=== PATIENT | female | born 1955 | race Caucasian/White ===

== ENCOUNTER 2020-05-10 05:57 | Inpatient (IN) | payer MEDICARE, SELFPAY ==
[2020-05-10] VITALS (19 sets, daily range): BP systolic 153–257; BP diastolic 70–109; PULSE 90–108; RESP 16–28; TEMP 35.5–36.8; O2SAT 94–97; BMI 38.6
--- NOTE | 2020-05-10 06:17 | ECG_ITS ---
Test Reason : CHEST PAIN Blood Pressure : / mmHG Vent. Rate : 100 BPM Atrial Rate : 100 BPM P-R Int : 192 ms QRS Dur : 082 ms QT Int : 358 ms P-R-T Axes : 044 -23 040 degrees QTc Int : 461 ms Sinus tachycardia Otherwise normal ECG When compared with ECG of 12-APR-2018 04:21, Heart rate has increased Referred By: Danisha Mathew Electronically Signed By:DEEP VÁZQUEZ MD
--- NOTE | 2020-05-10 06:18 | ED_ITS ---
HPI - Chest Pain General Chief Complaint: Chest Pain Stated Complaint: Chest pain Time Seen by Provider: 05/10/20 06:17 Source: patient Mode of arrival: EMS Limitations: no limitations History of Present Illness HPI narrative: This is a 64-year-old female who is brought in by EMS for acute onset of substernal sharp constant chest pain that patient states awoke her from sleep at approximately 4:30 a.m. today. She states it is non radiating and does increase with deep inspiration as well as some movement and it is described as 10/10. Patient does states that she suffers from GERD but says that this is completely different and denies any preceding trauma, fevers, chills, shortness of breath and states that she does have some associated dizziness. Related Data Allergies Allergy/AdvReac Type Severity Reaction Status Date / Time demerol Allergy Unknown Unknown Uncoded 05/10/20 06:10 lisinopril Allergy Unknown Unknown Uncoded 05/10/20 06:10 Review of Systems Review of Systems: Pertinent positives and negatives as stated in HPI and 10 point review of systems is otherwise negative. [facility] Past Medical History Source: nursing notes reviewed Medical History Asthma Diabetes Dizziness GERD (gastroesophageal reflux disease) High cholesterol HTN (hypertension) Social History Social History Smoking Status: Current every day smoker Use of substances other than those prescribed or required for medical reasons: No Advance Directives: No Advance Directives Information Provided: No Physical Exam Vital Signs: Vital Signs: Last Vital Signs Temp 95.9 F L 05/10/20 06:05 Pulse 98 05/10/20 09:15 Resp 28 H 05/10/20 08:43 BP 155/70 H 05/10/20 09:15 Pulse Ox 95 05/10/20 08:20 Body Mass Index 38.6 VITAL SIGNS: Reviewed. GENERAL: Morbidly obese, Well developed, well nourished, severe distress. HEAD: Normocephalic/atraumatic, EYES: PERRLA, EOMI intact without pain, no nystagmus/pallor/icterus noted EARS: Ext canals without abnormality, TMs non-bulging and non-erythematous NOSE: Nares patent bilateral OROPHARYNX: no oral lesions noted, posterior pharynx clear and non-erythematous without noted tonsillar enlargement/erythema/exudates NECK: Supple, no adenopathy LUNGS: Normal breath sounds. No adventitious sounds or accessory muscle use. SpO2<95> CARDIOVASCULAR: Regular rate and rhythm without noted murmurs, no JVD or lower extremity edema. ABDOMEN: Soft, non-tender, non-distended with bowel sounds. No rigidity. No guarding. No palpable masses or hernias noted MUSCULOSKELETAL: No tenderness, deformities, or effusions noted on gross inspection. EXTREMITIES: No cyanosis, clubbing or edema. SKIN: Inspection of the skin reveals no rashes, ulcerations, jaundice, pallor, or petechiae. NEUROLOGIC: Alert and oriented x 4. Strength and sensation to light touch were grossly intact x 4. Course Course Course Narrative: This is a 64-year-old female with history and clinical presentation most concerning for ACS although on review of EKG and vital signs this appears to be less likely as there is no evidence for acute ischemia, esophageal reflux although history provided by the patient this appears to be less likely and there is limited evidence to support diagnoses pneumonia or a pneumothorax. Given patient's medical history and body habitus there is some concern for possible PE, however with the degree of hypertension that is observed there is also concern for possible dissection. Due to concerns for possible dissection and given that patient's blood pressure was significantly elevated labetalol, IVP, was provided with good response in blood pressure however no appreciable improvement in patient's symptomatology. Subsequently the D-dimer was returned and found to be less than 200 making a diagnosis of PE doubtful and high sensitivity troponin was noted to be less than 3.5. However the troponin will need to be repeated as patient's pain falls within the 6 hour window. Although there is a noted leukocytosis on review of patient's prior lab work this appears to wax and wane and is unlikely to be indicative of an underlying infection. Urinalysis is negative for any evidence of acute infection or indirect suggestion of renal colic. CTA of the chest was negative for PE, dissection and indirectly pneumonia/pneumothorax / pneumomediastinum have been excluded. Patient's pain has begun to improve after 2 sublingual nitro , 40 mg of Protonix, and blood pressure is gradually improved. Currently, thoughts are that this may be esophageal spasm versus a pericarditis. Will administer 15 mg of Toradol and reassess for improvement of symptoms. Reevaluation(s) Reevaluation #1: I briefly asked GI for recommendations to treat possible esophageal spasm and the recommendations for sublingual nitro as long as patient's blood pressure was intact and the longer-term trial of PPIs. Time: 07:59 Reevaluation #2: Patient signed out to Dr. Segal. Plan: f/u 2nd Trop, admit with GI/cardio consults to rule out pericarditis/esophageal spasm. Time: 09:17 MDM - Chest Pain Lab Data Result diagrams: 05/10/20 06:36 05/10/20 06:36 Labs: Lab Results 05/10/20 05/10/20 05/10/20 Range/Units 06:36 06:36 06:36 WBC 17.7 H (4.8-10.8) X10*3/uL RBC 5.00 (4.20-5.50) X10*6/uL Hgb 14.5 (12.0-16.0) g/dl Hct 44.1 (37-47) % MCV 88.2 (80-98) fL MCH 29.0 (27.0-33.0) pg MCHC 32.9 (31.0-35.0) g/dl RDW 12.7 (11.0-16.0) % Plt Count 250 (160-400) X10*3/uL MPV 10.4 (9.4-12.3) fL Immature Gran % (Auto) 0.6 H (0.0-0.4) % Neut % (Auto) 73.2 H (45-73) % Lymph % (Auto) 17.0 L (20-40) % [place] % (Auto) 6.7 (2-11) % Eos % (Auto) 1.9 (0-4) % Baso % (Auto) 0.6 (0-2) % Lymph # (Auto) 3.0 (1.2-4.9) X10*3/uL [place] # (Auto) 1.2 (0.1-1.2) X10*3/uL Eos # (Auto) 0.3 (0.0-0.4) X10*3/uL Baso # (Auto) 0.1 (0.0-0.2) X10*3/uL Abs Immat Gran (auto) 0.11 H (0.00-0.03) X10*3/uL Absolute Neuts (auto) 12.9 H (2.0-8.3) X10*3/uL Absolute Nucleated RBC 0.000 (0.0-0.012) X10*3/uL Nucleated RBC % (auto) 0.0 (0.0-0.2) /100WBC PT 12.0 (10.8-13.0) SEC INR 1.0 (0.9-1.1) D-Dimer < 200 NG/ML Sodium 137 (135-145) mmol/L Potassium 4.5 (3.3-5.1) mmol/l Chloride 99 (96-108) mmol/L Carbon Dioxide 27 (22-29) mmol/L Anion Gap 16 (12-20) BUN 13 (9-16) mg/dL Creatinine 0.74 (0.5-1.4) mg/dL Estim Creat Clear Calc 86.9 Estimated GFR > 60 Random Glucose 257 H (60-115) mg/dL Calcium 9.4 (8.4-10.2) mg/dL Total Bilirubin 0.5 (0.0-1.0) mg/dL AST 22 (5-31) U/L ALT 38 H (0-31) U/L Alkaline Phosphatase 97 (39-117) U/L Troponin I High Sens (<3.5-17.0) ng/L Total Protein 7.1 (6.5-8.0) g/dL Albumin 4.1 (3.5-5.0) g/dL Lipase 14 (8-78) U/L Urine Color Urine Appearance Urine pH (5.0-8.0) Ur Specific [place] (1.005-1.025) Urine Protein (NEG-TRACE) MG/DL Urine Glucose (UA) (NEG) MG/DL Urine Ketones (NEG) MG/DL Urine Blood (NEG) Urine Nitrite (NEG) Ur Leukocyte Esterase (NEG) 05/10/20 05/10/20 Range/Units 06:36 07:42 WBC (4.8-10.8) X10*3/uL RBC (4.20-5.50) X10*6/uL Hgb (12.0-16.0) g/dl Hct (37-47) % MCV (80-98) fL MCH (27.0-33.0) pg MCHC (31.0-35.0) g/dl RDW (11.0-16.0) % Plt Count (160-400) X10*3/uL MPV (9.4-12.3) fL Immature Gran % (Auto) (0.0-0.4) % Neut % (Auto) (45-73) % Lymph % (Auto) (20-40) % [place] % (Auto) (2-11) % Eos % (Auto) (0-4) % Baso % (Auto) (0-2) % Lymph # (Auto) (1.2-4.9) X10*3/uL [place] # (Auto) (0.1-1.2) X10*3/uL Eos # (Auto) (0.0-0.4) X10*3/uL Baso # (Auto) (0.0-0.2) X10*3/uL Abs Immat Gran (auto) (0.00-0.03) X10*3/uL Absolute Neuts (auto) (2.0-8.3) X10*3/uL Absolute Nucleated RBC (0.0-0.012) X10*3/uL Nucleated RBC % (auto) (0.0-0.2) /100WBC PT (10.8-13.0) SEC INR (0.9-1.1) D-Dimer NG/ML Sodium (135-145) mmol/L Potassium (3.3-5.1) mmol/l Chloride (96-108) mmol/L Carbon Dioxide (22-29) mmol/L Anion Gap (12-20) BUN (9-16) mg/dL Creatinine (0.5-1.4) mg/dL Estim Creat Clear Calc Estimated GFR Random Glucose (60-115) mg/dL Calcium (8.4-10.2) mg/dL Total Bilirubin (0.0-1.0) mg/dL AST (5-31) U/L ALT (0-31) U/L Alkaline Phosphatase (39-117) U/L Troponin I High Sens < 3.5 (<3.5-17.0) ng/L Total Protein (6.5-8.0) g/dL Albumin (3.5-5.0) g/dL Lipase (8-78) U/L Urine Color YELLOW Urine Appearance CLEAR Urine pH 6.5 (5.0-8.0) Ur Specific [place] 1.015 (1.005-1.025) Urine Protein NEG (NEG-TRACE) MG/DL Urine Glucose (UA) 250 H (NEG) MG/DL Urine Ketones NEG (NEG) MG/DL Urine Blood NEG (NEG) Urine Nitrite NEG (NEG) Ur Leukocyte Esterase NEG (NEG) ECG Data ECG #1: Attestation: I personally reviewed and interpreted this ECG as follows: Prior ECG tracings: available for review (04/12/2018 and no acute changes on comparison with today) Interpretation: Normal sinus rhythm, HR-100, no evidence of acute ischemia, p.r./QRS/QTC are within normal limits
--- NOTE | 2020-05-10 06:18 | ECG_ITS ---
Test Reason : chest pain Blood Pressure : / mmHG Vent. Rate : 101 BPM Atrial Rate : 101 BPM P-R Int : 156 ms QRS Dur : 080 ms QT Int : 348 ms P-R-T Axes : 032 -14 043 degrees QTc Int : 451 ms Sinus tachycardia Possible Left atrial enlargement ST elevation consider inferior injury or acute infarct ACUTE DE / STEMI Abnormal ECG ST more elevated in Inferior leads Referred By: Alexander Rojas Electronically Signed By:DEEP VÁZQUEZ MD
[2020-05-10 06:45] LABS: MANUAL DIFF FLAG NO
[2020-05-10] MEDS: Labetalol HCL 100 MG/20 ML VIAL 10 MG IVPUSH (06:45)
--- NOTE | 2020-05-10 06:48 | CT_ITS ---
EXAMINATION: CT ANGIOGRAM CHEST CLINICAL INFORMATION: Substernal pain, shortness of breath, dizziness, hypertensive COMPARISON: CT chest with IV contrast 11/11/2016 TECHNIQUE: Multiple axial images were obtained through the chest after the administration of 71 mL of Omnipaque 350 intravenous contrast. Extensive vascular post-processing including two-dimensional and three-dimensional reformatted images were created and reviewed on an independent workstation. This CT examination was performed using dose optimization techniques as appropriate, variously including the following: *Automated exposure control *Adjustment of mA and/or kV according to patient size (this includes techniques or standardized protocols for targeted exams where dose is matched to indication/reason for exam; i.e. extremities or head) *Use of iterative reconstruction technique DLP: 566 mGy-cm FINDINGS: QUALITY OF STUDY/CONTRAST BOLUS: Limitation due to moderate motion artifact. Satisfactory contrast bolus timing. PULMONARY ARTERIES: There is motion artifact resulting in heterogeneous attenuation of the subsegmental pulmonary arterial branches. There is no definite central or segmental pulmonary emboli. THORACIC AORTA: No aneurysm or dissection. Motion artifact at the aortic root. Scattered aortic atherosclerosis. LUNG: No airspace consolidation. No suspicious mass is seen. Possible tiny calcified granuloma in the left upper lobe apical segment. Otherwise limited assessment for nodules due to motion artifact. PLEURA: No pleural effusion or pneumothorax. MEDIASTINUM: Normal heart size. No pericardial effusion. No bulky hilar or mediastinal lymphadenopathy. No evidence of septal bowing or right heart strain. CHEST WALL/AXILLA: No axillary or internal mammary lymphadenopathy. Radiodensity in the right breast possibly representing biopsy marker. OSSEOUS STRUCTURES: No acute or suspicious osseous abnormality. Multilevel degenerative changes of the thoracic spine. UPPER ABDOMEN: Subcentimeter low-density lesion in the upper pole of the left kidney is too small to characterize, most likely representing a cyst. This appears similar in size compared to 11/11/2016. No reflux of contrast into the hepatic veins to suggest elevated right heart pressures. ADDITIONAL FINDINGS: Redemonstration of peripherally calcified nodule in the right thyroid lobe measuring approximately 2.3 cm in maximum dimension. Size is unchanged compared to study from 11/11/2016. CT/CT angio chest IMPRESSION: There are limitations due to motion artifact. No evidence of central or segmental pulmonary emboli. No focal airspace disease or other acute intrathoracic pathology. Calcified thyroid nodule as above, up to 2.3 cm in maximum dimension, which could be better assessed with thyroid ultrasound as clinically indicated. VTE: negative
[2020-05-10 06:51] LABS: Basophils Absolute Auto 0.1 X10*3/uL (0.0-0.2); Basophils Percent Auto 0.6 % (0-2); Eosinophils Absolute Auto 0.3 X10*3/uL (0.0-0.4); Eosinophils Percent Auto 1.9 % (0-4); Hematocrit 44.1 % (37-47); Hemoglobin 14.5 g/dl (12.0-16.0); Imm Gran Abs Auto 0.11 X10*3/uL (0.00-0.03); Imm Gran Pct Auto 0.6 % (0.0-0.4); Mean Corpuscular HGB Conc 32.9 g/dl (31.0-35.0); Mean Corpuscular Volume 88.2 fL (80-98); Mean Platelet Volume 10.4 fL (9.4-12.3); Monocytes Absolute Auto 1.2 X10*3/uL (0.1-1.2); Monocytes Percent Auto 6.7 % (2-11); Neutrophils Absolute Auto 12.9 X10*3/uL (2.0-8.3); Neutrophils Percent Auto 73.2 % (45-73); Platelet Count 250 X10*3/uL (160-400); Red Cell Distribution Width 12.7 % (11.0-16.0); White Blood Count 17.7 X10*3/uL (4.8-10.8)
[2020-05-10] MEDS: Magnesium Hydrox/Alum Hydrox 30 ML ORAL.SUSP PO (06:51)
[2020-05-10] MEDS: Lidocaine HCl Viscous 2 % 15 ML SOLUTION 10 ML MUCOUS MEM (06:51)
[2020-05-10 07:03] LABS: D Dimer < 200 NG/ML
[2020-05-10 07:10] LABS: Alanine Aminotransferase 38 U/L (0-31); Albumin Level 4.1 g/dL (3.5-5.0); Alkaline Phosphatase 97 U/L (39-117); Anion Gap 16 (12-20); Aspartate Amino Transferase 22 U/L (5-31); Bilirubin Total 0.5 mg/dL (0.0-1.0); Blood Urea Nitrogen 13 mg/dL (9-16); Calcium 9.4 mg/dL (8.4-10.2); Carbon Dioxide 27 mmol/L (22-29); Chloride 99 mmol/L (96-108); Creatinine Clr Calc Pharmacy 86.9; Estimated Glomerular Filt Rate > 60; Glucose Random 257 mg/dL (60-115); Lipase 14 U/L (8-78); Potassium 4.5 mmol/l (3.3-5.1); Sodium 137 mmol/L (135-145); Total Protein 7.1 g/dL (6.5-8.0)
[2020-05-10 07:13] LABS: Troponin-I High Sensitivity < 3.5 ng/L (<3.5-17.0)
[2020-05-10] MEDS: HYDROmorphone HCl 0.5 MG/0.5 ML SYRINGE IVPUSH ×5 (07:25→22:16)
[2020-05-10] MEDS: iohexoL 350 MG/ML 100 ML INFUS..BTL IV (07:40)
[2020-05-10 07:49] LABS: Glucose Urine UA 250 MG/DL (NEG); Leukocyte Esterase Urine NEG (NEG); Nitrite Urine NEG (NEG); PH 6.5 (5.0-8.0); Specific Gravity - Urine 1.015 (1.005-1.025); Urine Blood NEG (NEG); Urine Ketones NEG (NEG); Urine Protein NEG (NEG-TRACE)
[2020-05-10 08:00] LABS: Appearance Urine CLEAR; Color Urine YELLOW
[2020-05-10] MEDS: Morphine Sulfate 2 MG/ML CARTRIDGE 1 MG IVPUSH (08:02)
[2020-05-10] MEDS: Nitroglycerin 0.4 MG TAB.SUBL SUBLINGUAL ×2 (08:18→08:44)
[2020-05-10] MEDS: Pantoprazole Sodium 40 MG/10 ML VIAL IVPUSH (08:43)
[2020-05-10] MEDS: Ketorolac Tromethamine 15 MG/ML VIAL IVPUSH (09:07)
--- NOTE | 2020-05-10 09:53 | ED_ITS ---
HPI - Chest Pain General Chief Complaint: Chest Pain Stated Complaint: Chest pain Time Seen by Provider: 05/10/20 06:17 Source: patient Mode of arrival: EMS Limitations: no limitations Related Data Home Medications Medication Instructions Recorded Confirmed clotrimazole 1 % topical cream 1 applic TOPICAL BID 05/10/20 05/22/20 insulin glargine 100 unit/mL (3 32 unit SUBCUT BID 05/10/20 05/22/20 mL) subcutaneous pen (Basaglar KwikPen U-100 Insulin) irbesartan 300 mg tablet 1 tab PO DAILY 05/10/20 05/22/20 metformin 1,000 mg tablet 2 tab PO QAM 05/10/20 05/22/20 omeprazole 20 mg capsule,delayed 1 cap PO BID 05/10/20 05/22/20 release dulaglutide 0.75 mg/0.5 mL 0.75 mg SUBCUT QWEEK 05/22/20 05/22/20 subcutaneous pen injector (Trulicity) Previous Rx's Medication Instructions Recorded amlodipine 10 mg tablet 10 mg PO DAILY #30 tab 05/12/20 atorvastatin 40 mg tablet (Lipitor) 40 mg PO BEDTIME #30 tab 05/12/20 oxycodone 5 mg tablet 5 mg PO Q6H PRN #14 tab 05/12/20 polyethylene glycol 3350 17 gram 17 g PO DAILY #14 ea 05/12/20 oral powder packet (Miralax) Allergies Allergy/AdvReac Type Severity Reaction Status Date / Time demerol Allergy Unknown Unknown Uncoded 05/10/20 06:10 lisinopril Allergy Unknown Unknown Uncoded 05/10/20 06:10 [facility] Past Medical History Medical History Asthma Diabetes Diverticulitis Dizziness GERD (gastroesophageal reflux disease) High cholesterol HTN (hypertension) Small bowel obstruction Surgical History H/O exploratory laparotomy History of bilateral knee replacement History of partial colectomy Status post total abdominal hysterectomy Family History Family History Sister Diabetes ESRD (end stage renal disease) on dialysis Father CAD (coronary artery disease) Social History Social History (Updated 05/22/20 @ 11:37 by MARY Mckinney) Alcohol intake: never Cigarettes Per Day: 0 service: No Current occupational status: retired Physical Exam Vital Signs: Vital Signs: Last Vital Signs Temp 97 F 05/13/20 07:09 Pulse 86 05/13/20 11:04 Resp 20 05/13/20 11:04 BP 130/58 L 05/13/20 11:04 Pulse Ox 95 05/13/20 11:04 Body Mass Index 38.6 MDM - Chest Pain Lab Data Result diagrams: 05/12/20 10:00 05/12/20 10:00 Labs: Lab Results 05/10/20 05/10/20 05/10/20 Range/Units 06:36 06:36 06:36 WBC 17.7 H (4.8-10.8) X10*3/uL RBC 5.00 (4.20-5.50) X10*6/uL Hgb 14.5 (12.0-16.0) g/dl Hct 44.1 (37-47) % MCV 88.2 (80-98) fL MCH 29.0 (27.0-33.0) pg MCHC 32.9 (31.0-35.0) g/dl RDW 12.7 (11.0-16.0) % Plt Count 250 (160-400) X10*3/uL MPV 10.4 (9.4-12.3) fL Immature Gran % (Auto) 0.6 H (0.0-0.4) % Neut % (Auto) 73.2 H (45-73) % Lymph % (Auto) 17.0 L (20-40) % [place] % (Auto) 6.7 (2-11) % Eos % (Auto) 1.9 (0-4) % Baso % (Auto) 0.6 (0-2) % Lymph # (Auto) 3.0 (1.2-4.9) X10*3/uL [place] # (Auto) 1.2 (0.1-1.2) X10*3/uL Eos # (Auto) 0.3 (0.0-0.4) X10*3/uL Baso # (Auto) 0.1 (0.0-0.2) X10*3/uL Abs Immat Gran (auto) 0.11 H (0.00-0.03) X10*3/uL Absolute Neuts (auto) 12.9 H (2.0-8.3) X10*3/uL Absolute Nucleated RBC 0.000 (0.0-0.012) X10*3/uL Nucleated RBC % (auto) 0.0 (0.0-0.2) /100WBC PT 12.0 (10.8-13.0) SEC INR 1.0 (0.9-1.1) D-Dimer < 200 NG/ML Sodium 137 (135-145) mmol/L Potassium 4.5 (3.3-5.1) mmol/l Chloride 99 (96-108) mmol/L Carbon Dioxide 27 (22-29) mmol/L Anion Gap 16 (12-20) BUN 13 (9-16) mg/dL Creatinine 0.74 (0.5-1.4) mg/dL Estim Creat Clear Calc 86.9 Estimated GFR > 60 Random Glucose 257 H (60-115) mg/dL Calcium 9.4 (8.4-10.2) mg/dL Total Bilirubin 0.5 (0.0-1.0) mg/dL AST 22 (5-31) U/L ALT 38 H (0-31) U/L Alkaline Phosphatase 97 (39-117) U/L Troponin I High Sens (<3.5-17.0) ng/L B-Natriuretic Peptide (<100) pg/mL Total Protein 7.1 (6.5-8.0) g/dL Albumin 4.1 (3.5-5.0) g/dL Lipase 14 (8-78) U/L Procalcitonin ng/mL Urine Color Urine Appearance Urine pH (5.0-8.0) Ur Specific [place] (1.005-1.025) Urine Protein (NEG-TRACE) MG/DL Urine Glucose (UA) (NEG) MG/DL Urine Ketones (NEG) MG/DL Urine Blood (NEG) Urine Nitrite (NEG) Ur Leukocyte Esterase (NEG) COVID-19 ([facility]) (Negative) COVID-19 Clin Com 05/10/20 05/10/20 05/10/20 Range/Units 06:36 06:36 07:42 WBC (4.8-10.8) X10*3/uL RBC (4.20-5.50) X10*6/uL Hgb (12.0-16.0) g/dl Hct (37-47) % MCV (80-98) fL MCH (27.0-33.0) pg MCHC (31.0-35.0) g/dl RDW (11.0-16.0) % Plt Count (160-400) X10*3/uL MPV (9.4-12.3) fL Immature Gran % (Auto) (0.0-0.4) % Neut % (Auto) (45-73) % Lymph % (Auto) (20-40) % [place] % (Auto) (2-11) % Eos % (Auto) (0-4) % Baso % (Auto) (0-2) % Lymph # (Auto) (1.2-4.9) X10*3/uL [place] # (Auto) (0.1-1.2) X10*3/uL Eos # (Auto) (0.0-0.4) X10*3/uL Baso # (Auto) (0.0-0.2) X10*3/uL Abs Immat Gran (auto) (0.00-0.03) X10*3/uL Absolute Neuts (auto) (2.0-8.3) X10*3/uL Absolute Nucleated RBC (0.0-0.012) X10*3/uL Nucleated RBC % (auto) (0.0-0.2) /100WBC PT (10.8-13.0) SEC INR (0.9-1.1) D-Dimer NG/ML Sodium (135-145) mmol/L Potassium (3.3-5.1) mmol/l Chloride (96-108) mmol/L Carbon Dioxide (22-29) mmol/L Anion Gap (12-20) BUN (9-16) mg/dL Creatinine (0.5-1.4) mg/dL Estim Creat Clear Calc Estimated GFR Random Glucose (60-115) mg/dL Calcium (8.4-10.2) mg/dL Total Bilirubin (0.0-1.0) mg/dL AST (5-31) U/L ALT (0-31) U/L Alkaline Phosphatase (39-117) U/L Troponin I High Sens < 3.5 (<3.5-17.0) ng/L B-Natriuretic Peptide (<100) pg/mL Total Protein (6.5-8.0) g/dL Albumin (3.5-5.0) g/dL Lipase (8-78) U/L Procalcitonin 0.04 ng/mL Urine Color YELLOW Urine Appearance CLEAR Urine pH 6.5 (5.0-8.0) Ur Specific [place] 1.015 (1.005-1.025) Urine Protein NEG (NEG-TRACE) MG/DL Urine Glucose (UA) 250 H (NEG) MG/DL Urine Ketones NEG (NEG) MG/DL Urine Blood NEG (NEG) Urine Nitrite NEG (NEG) Ur Leukocyte Esterase NEG (NEG) COVID-19 ([facility]) (Negative) COVID-19 Clin Com 05/10/20 05/10/20 Range/Units 09:47 09:47 WBC (4.8-10.8) X10*3/uL RBC (4.20-5.50) X10*6/uL Hgb (12.0-16.0) g/dl Hct (37-47) % MCV (80-98) fL MCH (27.0-33.0) pg MCHC (31.0-35.0) g/dl RDW (11.0-16.0) % Plt Count (160-400) X10*3/uL MPV (9.4-12.3) fL Immature Gran % (Auto) (0.0-0.4) % Neut % (Auto) (45-73) % Lymph % (Auto) (20-40) % [place] % (Auto) (2-11) % Eos % (Auto) (0-4) % Baso % (Auto) (0-2) % Lymph # (Auto) (1.2-4.9) X10*3/uL [place] # (Auto) (0.1-1.2) X10*3/uL Eos # (Auto) (0.0-0.4) X10*3/uL Baso # (Auto) (0.0-0.2) X10*3/uL Abs Immat Gran (auto) (0.00-0.03) X10*3/uL Absolute Neuts (auto) (2.0-8.3) X10*3/uL Absolute Nucleated RBC (0.0-0.012) X10*3/uL Nucleated RBC % (auto) (0.0-0.2) /100WBC PT (10.8-13.0) SEC INR (0.9-1.1) D-Dimer NG/ML Sodium (135-145) mmol/L Potassium (3.3-5.1) mmol/l Chloride (96-108) mmol/L Carbon Dioxide (22-29) mmol/L Anion Gap (12-20) BUN (9-16) mg/dL Creatinine (0.5-1.4) mg/dL Estim Creat Clear Calc Estimated GFR Random Glucose (60-115) mg/dL Calcium (8.4-10.2) mg/dL Total Bilirubin (0.0-1.0) mg/dL AST (5-31) U/L ALT (0-31) U/L Alkaline Phosphatase (39-117) U/L Troponin I High Sens < 3.5 (<3.5-17.0) ng/L B-Natriuretic Peptide 14 (<100) pg/mL Total Protein (6.5-8.0) g/dL Albumin (3.5-5.0) g/dL Lipase (8-78) U/L Procalcitonin ng/mL Urine Color Urine Appearance Urine pH (5.0-8.0) Ur Specific [place] (1.005-1.025) Urine Protein (NEG-TRACE) MG/DL Urine Glucose (UA) (NEG) MG/DL Urine Ketones (NEG) MG/DL Urine Blood (NEG) Urine Nitrite (NEG) Ur Leukocyte Esterase (NEG) COVID-19 ([facility]) Negative (Negative) COVID-19 Clin Com See Note Discharge Plan Discharge Clinical Impression: Chest pain, Intractable epigastric abdominal pain Patient Disposition: Admitted As Inpatient Interventions: Admission Worksheet (ED) Last Done: 05/10/20 16:44 Discharge Date/Time: 05/10/20 16:45
[2020-05-10 10:13] LABS: COVID-19 Test Negative (Negative)
[2020-05-10 10:25] LABS: Troponin-I High Sensitivity < 3.5 ng/L (<3.5-17.0)
--- NOTE | 2020-05-10 11:59 | PM.IMHP ---
History of Present Illness Date of Service: 05/10/20 Chief Complaint: chest pain this is a 64-year-old female with a history of diabetes, hypertension, dyslipidemia who presents to the emergency department with chest pain. She woke up at 04:30 this morning with central chest pressure and the feeling that an elephant was sitting on her chest. She had associated shortness of breath and nausea and mild dizziness. Her pain was described as 10/10 in severity. She called 911 and was brought to the emergency department for evaluation. She denies any previous history of chest pain. On arrival her blood pressure was noted to be 257/109. She reports that her brother pressure has been uncontrolled recently and she was started on a 2nd blood pressure medication (Norvasc) 3 weeks ago. she received a dose of IV labetalol, p.o. nifedipine, sublingual nitroglycerin x2. EKG showed sinus tachycardia. Cardiac enzymes were flat x2. She underwent a CTA which showed no evidence of PE or dissection. She received multiple medications including antiemetics, ppi, opiates. her pain improved to 3/10. however given her presentation and elevated blood pressure inpatient admission was requested. Review of Systems Review of Systems: Yes all other systems are reviewed and are negative Cardiovascular: Cardiovascular: Reports chest pain, Denies palpitations, Reports dyspnea, Denies dyspnea on exertion and Denies orthopnea Respiratory: Respiratory: Denies pain on inspiration, Reports dyspnea and Denies dyspnea on exertion Gastrointestinal: Gastrointestinal: Denies diarrhea, Reports nausea and Denies vomiting Endocrine: Endocrine: Denies palpitations [facility] Medical History (Updated 05/10/20 @ 12:09 by MARY Mckinney) Asthma Diabetes Diverticulitis Dizziness GERD (gastroesophageal reflux disease) High cholesterol HTN (hypertension) Small bowel obstruction Functional capacity: independent ambulation Family History (Updated 05/10/20 @ 12:05 by MARY Mckinney) Sister Diabetes ESRD (end stage renal disease) on dialysis Father CAD (coronary artery disease) Surgical History (Updated 05/10/20 @ 12:06 by MARY Mckinney) H/O exploratory laparotomy History of bilateral knee replacement History of partial colectomy Status post total abdominal hysterectomy Social History (Updated 05/10/20 @ 12:06 by MARY Mckinney) Alcohol intake: never Smoking Status: Current some day smoker Cigarettes Per Day: 5 Use of substances other than those prescribed or required for medical reasons: No Advance Directives: No Advance Directives Information Provided: No Meds Allergies Allergy/AdvReac Type Severity Reaction Status Date / Time demerol Allergy Unknown Unknown Uncoded 05/10/20 06:10 lisinopril Allergy Unknown Unknown Uncoded 05/10/20 06:10 Home Medications Medication Instructions Recorded Confirmed Type amlodipine 1 tab PO DAILY 05/10/20 05/10/20 History clotrimazole applic TOPICAL 05/10/20 History insulin glargine [Basaglar KwikPen 32 unit SUBCUT BID 05/10/20 05/10/20 History U-100 Insulin] irbesartan 1 tab PO DAILY 05/10/20 05/10/20 History metformin 2 tab PO QAM 05/10/20 05/10/20 History omeprazole 1 cap PO BID 05/10/20 05/10/20 History simvastatin 1 tab PO BEDTIME 05/10/20 05/10/20 History Physical Exam Vital Signs and Narrative: Vital Signs: Last Vital Signs Temp 95.9 F L 05/10/20 06:05 Pulse 99 05/10/20 11:15 Resp 24 H 05/10/20 11:15 BP 177/79 H 05/10/20 11:15 Pulse Ox 96 05/10/20 11:15 Body Mass Index 38.6 Const: Nutritional Appearance: overweight Orientation/consciousness: patient oriented x3 HENMT: Head: Yes normocephalic and Yes atraumatic Eyes: Sclerae: sclerae normal Chest: Chest palpation & inspection: normal inspection of the chest Resp: Effort & Inspection: normal respiratory effort and no respiratory distress Auscultation: clear to auscultation bilaterally Cardio: Rate: regular rate Rhythm: regular rhythm GI: Palpation (GI): Soft to palpation and nontender Skin: General skin exam: no rashes or lesions noted Neuro: General: patient oriented x3 Cranial nerves: Yes CN's II-XII intact bilaterally and Yes Bilaterally intact EOM present Extrem: General: Yes normal to inspection Results Labs CBC and Chem 7: 05/10/20 06:36 05/10/20 06:36 Labs: Laboratory Results - last 24 hr 05/10/20 05/10/20 05/10/20 06:36 06:36 06:36 MCV 88.2 MCH 29.0 MCHC 32.9 RDW 12.7 Plt Count 250 MPV 10.4 Immature Gran % (Auto) 0.6 H Neut % (Auto) 73.2 H Lymph % (Auto) 17.0 L Crowley % (Auto) 6.7 Eos % (Auto) 1.9 Baso % (Auto) 0.6 Lymph # (Auto) 3.0 Crowley # (Auto) 1.2 Eos # (Auto) 0.3 Baso # (Auto) 0.1 Abs Immat Gran (auto) 0.11 H Absolute Neuts (auto) 12.9 H Absolute Nucleated RBC 0.000 Nucleated RBC % (auto) 0.0 PT 12.0 INR 1.0 D-Dimer < 200 Anion Gap 16 Estim Creat Clear Calc 86.9 Estimated GFR > 60 Random Glucose 257 H Calcium 9.4 Total Bilirubin 0.5 AST 22 ALT 38 H Alkaline Phosphatase 97 Troponin I High Sens Total Protein 7.1 Albumin 4.1 Lipase 14 Urine Color Urine Appearance Urine pH Ur Specific Whittaker Urine Protein Urine Glucose (UA) Urine Ketones Urine Blood Urine Nitrite Ur Leukocyte Esterase COVID-19 ([facility]CY) COVID-YoungCurrent Com 05/10/20 05/10/20 05/10/20 06:36 07:42 09:47 MCV MCH MCHC RDW Plt Count MPV Immature Gran % (Auto) Neut % (Auto) Lymph % (Auto) Crowley % (Auto) Eos % (Auto) Baso % (Auto) Lymph # (Auto) Crowley # (Auto) Eos # (Auto) Baso # (Auto) Abs Immat Gran (auto) Absolute Neuts (auto) Absolute Nucleated RBC Nucleated RBC % (auto) PT INR D-Dimer Anion Gap Estim Creat Clear Calc Estimated GFR Random Glucose Calcium Total Bilirubin AST ALT Alkaline Phosphatase Troponin I High Sens < 3.5 < 3.5 Total Protein Albumin Lipase Urine Color YELLOW Urine Appearance CLEAR Urine pH 6.5 Ur Specific Whittaker 1.015 Urine Protein NEG Urine Glucose (UA) 250 H Urine Ketones NEG Urine Blood NEG Urine Nitrite NEG Ur Leukocyte Esterase NEG COVID-19 ([facility]) COVID-YoungCurrent Com 05/10/20 09:47 MCV MCH MCHC RDW Plt Count MPV Immature Gran % (Auto) Neut % (Auto) Lymph % (Auto) Crowley % (Auto) Eos % (Auto) Baso % (Auto) Lymph # (Auto) Crowley # (Auto) Eos # (Auto) Baso # (Auto) Abs Immat Gran (auto) Absolute Neuts (auto) Absolute Nucleated RBC Nucleated RBC % (auto) PT INR D-Dimer Anion Gap Estim Creat Clear Calc Estimated GFR Random Glucose Calcium Total Bilirubin AST ALT Alkaline Phosphatase Troponin I High Sens Total Protein Albumin Lipase Urine Color Urine Appearance Urine pH Ur Specific Whittaker Urine Protein Urine Glucose (UA) Urine Ketones Urine Blood Urine Nitrite Ur Leukocyte Esterase COVID-19 ([facility]) Negative COVID-19 Clin Com See Note Imaging Radiologist's Impressions: Impressions Chest CTA 05/10/20 06:48 IMPRESSION: There are limitations due to motion artifact. No evidence of central or segmental pulmonary emboli. No focal airspace disease or other acute intrathoracic pathology. Calcified thyroid nodule as above, up to 2.3 cm in maximum dimension, which could be better assessed with thyroid ultrasound as clinically indicated. VTE: negative Assessment and Plan (1) Chest pain: Status: Acute (2) Hypertensive urgency, malignant: Status: Acute this is a 64-year-old female with history of diabetes, hypertension, dyslipidemia who presented to the emergency department with chest pain found to have elevated blood pressure. Chest pain likely secondary to uncontrolled hypertension cardiac enzymes negative x2 no ischemic changes on EKG - tele monitoring, cardiology consult hypertensive urgency initial blood pressure 257/109, now 177/79 after 10 mg IV labetalol, 10 mg nifedipine po, nitro sublingual x2, - increase Norvasc from 2.5-5 mg daily - continue arb - monitor blood pressure closely - cardiology consult leukocytosis appears to be chronic CTA without evidence of pneumonia urinalysis negative - follow CBC IDDM -continue home dose of insulin -SSI, POCs -hold Metformin (received contrast for PE study) HLD - continue statin tobacco use -NRT gerd -Continue omeprazole DVT ppx - lovenonx Code status - full this case discussed with Dr. Gr
[2020-05-10] MEDS: Morphine Sulfate 2 MG/ML CARTRIDGE IVPUSH (13:21)
[2020-05-10 13:51] LABS: B Type Natriuretic Peptide 14 pg/mL (<100)
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
[2020-05-10] MEDS: Lidocaine 4 % Patch ADH..PATCH 1 PATCH TRANSDERMA (15:09)
[2020-05-10 16:22] LABS: Glucose, Whole Blood 351 mg/dL (60-115)
[2020-05-10 16:26] LABS: Procalcitonin 0.04 ng/mL
[2020-05-10] MEDS: Insulin Lispro 100 UNIT/ML 3 ML VIAL SUBCUT ×2 (17:54→22:17)
[2020-05-10] MEDS: Enoxaparin Sodium 40 MG/0.4 ML SYRINGE SUBCUT (17:55)
[2020-05-10] MEDS: 0.9 % Sodium Chloride Flush 3 ML SYRINGE IVFLUSH (17:56)
[2020-05-10 19:56] LABS: Glucose, Whole Blood 322 mg/dL (60-115)
[2020-05-10] MEDS: Atorvastatin Calcium 20 MG TABLET PO (22:06)
[2020-05-10] MEDS: Omeprazole 20 MG CAPSULE.DR PO (22:08)
[2020-05-10] MEDS: Insulin Glargine,Hum.rec.anlog 100 UNIT/ML 10 ML VIAL 32 UNIT SUBCUT (22:17)
[2020-05-10] MEDS: Acetaminophen 325 MG TABLET 650 MG PO (22:37)
[2020-05-11] VITALS (12 sets, daily range): BP systolic 127–169; BP diastolic 64–78; PULSE 88–100; RESP 18–22; TEMP 36.8–37.3; O2SAT 91–95; BMI 38.6
[2020-05-11] MEDS: 0.9 % Sodium Chloride Flush 3 ML SYRINGE IVFLUSH ×3 (00:10→16:00)
[2020-05-11] MEDS: Acetaminophen 325 MG TABLET 650 MG PO ×3 (04:41→16:03)
[2020-05-11] MEDS: HYDROmorphone HCl 0.5 MG/0.5 ML SYRINGE IVPUSH ×5 (04:43→21:30)
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
[2020-05-11] MEDS: Insulin Lispro 100 UNIT/ML 3 ML VIAL SUBCUT ×4 (07:45→20:59)
[2020-05-11 07:46] LABS: Glucose, Whole Blood 336 mg/dL (60-115)
--- NOTE | 2020-05-11 08:43 | MHC.CM.PN ---
CM met with Patient. Patient lives in a house with her and has a cane that she intends to start using. Patient does not use O2 at home. CM has initiated and will follow for dc planning. IMM addressed with Patient and the original has been given to her and a copy has been placed on the chart. PCP is Dr. Karina Driscoll.
[2020-05-11] MEDS: amLODIPine Besylate 2.5 MG TABLET 5 MG PO (09:17)
[2020-05-11] MEDS: Valsartan 160 MG TABLET PO (09:17)
[2020-05-11] MEDS: Insulin Glargine,Hum.rec.anlog 100 UNIT/ML 10 ML VIAL 32 UNIT SUBCUT ×2 (09:18→20:59)
[2020-05-11] MEDS: Lidocaine 4 % Patch ADH..PATCH 1 PATCH TRANSDERMA (09:18)
[2020-05-11] MEDS: Omeprazole 20 MG CAPSULE.DR PO ×2 (09:18→20:59)
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
--- NOTE | 2020-05-11 11:23 | ECG_ITS ---
Test Reason : CHEST PAIN Blood Pressure : / mmHG Vent. Rate : 092 BPM Atrial Rate : 092 BPM P-R Int : 152 ms QRS Dur : 082 ms QT Int : 354 ms P-R-T Axes : 030 -14 031 degrees QTc Int : 437 ms Normal sinus rhythm ST elevation consider inferior injury or acute infarct ACUTE ID / STEMI Abnormal ECG When compared with ECG of 10-MAY-2020 22:00, No significant change was found Referred By: Los Hinojosa Electronically Signed By:DEEP VÁZQUEZ MD
[2020-05-11 11:46] LABS: Glucose, Whole Blood 324 mg/dL (60-115)
[2020-05-11] MEDS: amLODIPine Besylate 5 MG TABLET PO (11:54)
--- NOTE | 2020-05-11 14:00 | CA_ITS ---
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 The visually estimated ejection fraction is between 60-65%. - No obvious valvular pathology seen on this study. Findings Left Ventricle Normal left ventricular cavity size. There is mildly increased left ventricular wall thickness. The left ventricular systolic function is normal. The visually estimated ejection fraction is between 60-65%. There is no evidence of regional wall motion abnormalities. E/E prime ratio is between 8 and 15 consistent with indeterminate filling pressures. Evidence suggests grade I (mild) diastolic dysfunction. Right Ventricle Normal right ventricular cavity size and systolic function. Atria The left atrium is normal in size. The right atrium is normal in size. Aortic Valve There is a normal trileaflet aortic valve. There is no aortic valve stenosis. There is no aortic valve regurgitation. Mitral Valve The mitral valve appears normal. There is trace mitral valve regurgitation. There is no mitral valve stenosis. Pulmonic Valve The pulmonic valve was not well visualized. Tricuspid Valve Normal tricuspid valve structure. There is trace tricuspid valve regurgitation. The pulmonary artery systolic pressure is normal. Great Vessels The aortic annulus, sinuses of valsalva, and asc aorta are normal in size. Venous The inferior vena cava is mildly dilated and collapses less than 50% with inspiration. Pericardium/Pleural Prominent epicardial adipose tissue noted. There is a trivial pericardial effusion. Prior Study Comparison No prior study available for comparison. Recommendations, Care & Conclusions No obvious valvular pathology seen on this study. Measurements 2D Linear Measurements IVSd: 1.25 0.6-0.9/0.6-1.0 cm LVIDd: 4.53 3.9-5.3/4.2-5.9 cm LVIDd Index: 2.23 2.4-3.2/2.2-3.1 cm/m2 LVIDs: 2.81 2.0-3.6 cm LVPWd: 1.24 0.7-1.1 cm Ao Root: 3.10 2.1-3.5 cm LA Diam: 4.30 2.7-3.8/3.0-4.0 cm LAIDs Index: 2.12 1.5-2.3 cm/m2 LV Mass: 263.11 67-162/88-224 g LV Mass Index: 129.61 43-95/49-115 g/m2 LVOT Diam: 2.20 3.0+(-)1.3 cm Mitral Valve MV Pk E: 0.71 MV PK A: 0.88 MV Decel Time: 190.00 E/A: 0.80 E'Lateral: 5.51 E'Medial: 6.67 E/E' Med: 10.60 E/E' Lat: 12.80 PHT: 56.00 MVA PHT: 3.93 Decel [place]: 3.72 Aortic Valve AoV Pk Radu: 1.47 AoV Mn Radu: 0.93 AoV VTI: 0.30 AoV Pk Grad: 9.00 Aov Mn Grad: 4.00 CATHERINE Cont.VTI: 2.96 LVOT LVOT Pk Radu: 1.09 LVOT Mn Radu: 0.70 LVOT VTI: 0.23 LVOT Pk Grad: 5.00 LVOT Mn Grad: 2.00 LVOT Diam: 2.20 LVOT Area: 3.80 Diastolic Function MV Pk E: 0.71 MV Pk A: 0.88 E/A: 0.80 E'Medial: 6.67 E/E' Med: 10.60 E' Laterial: 5.51 E/E' Lat: 12.80 Tricuspid Valve TR Pk Radu: 1.98 TR Pk Grad: 16.00 RA Press: 8.00 RVSP: 24.00 Great Vessels Aorta Ao Root-2D: 3.10 2.0-3.7 cm Ao Asc: 3.00 2.1-3.4 cm Pulmonary Valve PV Pk Radu: 1.11 Peak PV Grad: 5.00 CO Pk Radu: 1.09 Updated in Other Vendor System with Status of Final Blaine Hendrickson MD electronically signed on 05/11/2020 4:21:15 PM with status of Final
--- NOTE | 2020-05-11 15:28 | P.PNIM_ITS ---
Subjective Subjective Date of Service: 05/11/20 Physical Exam Vital Signs: Vital Signs: Last Vital Signs Temp 98.2 F 05/11/20 15:24 Pulse 88 05/11/20 15:24 Resp 18 05/11/20 15:24 BP 147/68 H 05/11/20 15:24 Pulse Ox 91 L 05/11/20 15:24 Body Mass Index 38.6 Const: Nutritional Appearance: overweight Orientation/consciousness: patient oriented x3 HENMT: Head: Yes normocephalic and Yes atraumatic Eyes: Sclerae: sclerae normal Chest: Chest palpation & inspection: normal inspection of the chest Resp: Effort & Inspection: normal respiratory effort and no respiratory distress Auscultation: clear to auscultation bilaterally Cardio: Rate: regular rate Rhythm: regular rhythm GI: Palpation (GI): Soft to palpation and nontender Skin: General skin exam: no rashes or lesions noted Neuro: General: patient oriented x3 Cranial nerves: Yes CN's II-XII intact bilaterally and Yes Bilaterally intact EOM present Extrem: General: Yes normal to inspection Objective Data Current Medications Generic Name Dose Route Start Last Admin Trade Name Freq PRN Reason Stop Dose Admin Acetaminophen 650 mg 05/10/20 15:44 05/11/20 10:52 Acetaminophen 325 Mg Tablet PO 650 mg Q6H PRN Administration Pain, Mild (Pain Scale 1-3) Amlodipine Besylate 10 mg 05/12/20 09:00 Amlodipine Besylate 2.5 Mg Tablet PO DAILY [facility] Protocol Atorvastatin Calcium 20 mg 05/10/20 21:00 05/10/20 22:06 Atorvastatin Calcium 20 Mg Tablet PO 20 mg BEDTIME SOLEDAD Administration Docusate Sodium 100 mg 05/10/20 15:44 Docusate Sodium 100 Mg Capsule PO DAILY PRN Constipation Enoxaparin Sodium 40 mg 05/10/20 16:00 05/10/20 17:55 Enoxaparin Sodium 40 Mg/0.4 Ml Syringe SUBCUT 40 mg Q24H SOLEDAD Administration Hydromorphone HCl 0.5 mg 05/10/20 18:17 05/11/20 13:27 Hydromorphone Hcl 0.5 Mg/0.5 Ml Syringe IVPUSH 0.5 mg Q4H PRN Administration Chest Pain Insulin Glargine 32 unit 05/10/20 21:00 05/11/20 09:18 Insulin Glargine,Hum.Rec.Anlog 100 Unit/Ml 10 Ml Vial SUBCUT 32 unit BID SOLEDAD Administration Insulin Human Lispro 0 unit 05/10/20 16:30 05/11/20 11:53 Insulin Lispro 100 Unit/Ml 3 Ml Vial SUBCUT 8 unit QIDACHS SOLEDAD Administration Protocol Lidocaine 1 patch 05/10/20 14:30 05/11/20 09:18 Lidocaine 4 % Patch Adh..Patch TRANSDERMA 1 patch DAILY SOLEDAD Administration Protocol Nicotine Polacrilex 2 mg 05/10/20 15:44 Nicotine Polacrilex 2 Mg Lozenge BUCCAL Q2H PRN Nicotine Cravings Omeprazole 20 mg 05/10/20 21:00 05/11/20 09:18 Omeprazole 20 Mg Capsule.Dr PO 20 mg BID SOLEDAD Administration Ondansetron HCl 4 mg 05/10/20 15:44 Ondansetron Hcl 4 Mg/2 Ml Vial IVPUSH Q8H PRN Nausea and Vomiting Sodium Chloride 3 ml 05/10/20 16:00 05/11/20 07:26 0.9 % Sodium Chloride Flush 3 Ml Syringe IVFLUSH 3 ml QSHIFT SOLEDAD Administration Valsartan 160 mg 05/11/20 09:00 05/11/20 09:17 Valsartan 160 Mg Tablet PO 160 mg DAILY SOLEDAD Administration Labs CBC & Chem 7: 05/10/20 06:36 05/10/20 06:36 Assessment and Plan (1) Chest pain: Status: Acute (2) Hypertensive urgency, malignant: Status: Acute Assessment and Plan: this is a 64-year-old female with history of diabetes, hypertension, dyslipidemia who presented to the emergency department with chest pain found to have elevated blood pressure. Chest pain atypical likely secondary to uncontrolled hypertension cardiac enzymes negative x2 no ischemic changes on EKG seen by Cardiology recommended repeat EKG and troponin and check echocardiogram echocardiogram pending repeat troponin negative continue pain management Hypertensive urgency blood pressure improved but still on higher side cardiology following recommended to increase amlodipine continue ARB leukocytosis appears to be chronic CTA without evidence of pneumonia or dissection urinalysis negative monitor CBC difficulty swallowing will get speech evaluation IDDM continue Lantus and SSI, monitor POCs -hold Metformin (received contrast for PE study) HLD - continue statin tobacco use -NRT gerd -Continue omeprazole DVT ppx - lovenonx
[2020-05-11] MEDS: Enoxaparin Sodium 40 MG/0.4 ML SYRINGE SUBCUT (16:00)
[2020-05-11 16:28] LABS: Glucose, Whole Blood 304 mg/dL (60-115)
[2020-05-11 20:33] LABS: Glucose, Whole Blood 393 mg/dL (60-115)
[2020-05-11] MEDS: Atorvastatin Calcium 20 MG TABLET PO (20:58)
[2020-05-12] MEDS: 0.9 % Sodium Chloride Flush 3 ML SYRINGE IVFLUSH ×4 (00:28→21:04)
[2020-05-12] MEDS: Acetaminophen 325 MG TABLET 650 MG PO ×2 (00:31→15:03)
[2020-05-12] MEDS: HYDROmorphone HCl 0.5 MG/0.5 ML SYRINGE IVPUSH ×3 (01:32→11:17)
[2020-05-12 08:00] VITALS: BP 169/76; PULSE 96; RESP 20; O2SAT 92
[2020-05-12 08:44] LABS: Glucose, Whole Blood 307 mg/dL (60-115)
[2020-05-12] MEDS: Lidocaine 4 % Patch ADH..PATCH 1 PATCH TRANSDERMA (09:19)
[2020-05-12] MEDS: Insulin Glargine,Hum.rec.anlog 100 UNIT/ML 10 ML VIAL 32 UNIT SUBCUT ×2 (09:21→21:05)
[2020-05-12] MEDS: Insulin Lispro 100 UNIT/ML 3 ML VIAL SUBCUT ×4 (09:21→21:05)
[2020-05-12] MEDS: Omeprazole 20 MG CAPSULE.DR PO ×2 (09:22→21:03)
[2020-05-12] MEDS: amLODIPine Besylate 2.5 MG TABLET 10 MG PO (09:22)
[2020-05-12] MEDS: Valsartan 160 MG TABLET PO (09:22)
--- NOTE | 2020-05-12 10:26 | PM.PNCARD ---
Subjective Subjective Interval history: Follow-up for chest pain. Patient still has chest pain whenever she turns her body or tries to push against the bed railings to get up. Sounds very musculoskeletal. Review of Systems Review of Systems Cardiac-the chest pain sounds musculoskeletal not anginal; not short of breath; no palpitations, dizzy spells or syncopal episodes Physical Exam Vital Signs: Last Vital Signs Temp 99.2 F 05/11/20 23:47 Pulse 96 05/12/20 08:00 Resp 20 05/12/20 08:00 BP 169/76 H 05/12/20 08:00 Pulse Ox 92 05/12/20 08:00 Body Mass Index 38.6 Comfortable, no distress No pallor, icterus or cyanosis HEENT -unremarkable JVD- normal Cardiac- normal heart sounds, no murmurs, gallops or rubs, normal PMI Respiratory-normal breath sounds bilaterally, no crackles, no wheeze Abdomen- soft, nontender Neuro- alert and oriented Lower extremities- no significant edema, warm well perfused Results Labs and Meds Result diagrams: 05/10/20 06:36 05/10/20 06:36 Lab results: Laboratory Results - last 24 hr 05/11/20 05/11/20 05/11/20 11:42 12:17 16:22 POC Glucose 324 H 304 H Troponin I High Sens 4.0 05/11/20 05/12/20 20:29 08:30 POC Glucose 393 H* 307 H Troponin I High Sens Progress Note: A&P Assessment and plan (1) Hypertensive urgency, malignant: Status: Acute (2) Chest pain: Status: Acute Assessment and Plan: Her chest pain itself is likely musculoskeletal based on description. Possibly related to the sternal fracture that she has had in the past. So far, 3 troponins are negative. echocardiogram does not show any obvious wall motion abnormalities. Amlodipine dose has been increased. We can change statin to avoid any interactions. Otherwise there is room to go up on the ARB. Discharge planning. We can get an outpatient stress test in the next few days. Follow-up will be arranged. Fall Risk Details Current Medications: Current Medications Generic Name Dose Route Start Last Admin Trade Name Freq PRN Reason Stop Dose Admin Acetaminophen 650 mg 05/10/20 15:44 05/12/20 00:31 Acetaminophen 325 Mg Tablet PO 650 mg Q6H PRN Administration Pain, Mild (Pain Scale 1-3) Amlodipine Besylate 10 mg 05/12/20 09:00 05/12/20 09:22 Amlodipine Besylate 2.5 Mg Tablet PO 10 mg DAILY SOLEDAD Administration Protocol Atorvastatin Calcium 20 mg 05/10/20 21:00 05/11/20 20:58 Atorvastatin Calcium 20 Mg Tablet PO 20 mg BEDTIME SOLEDAD Administration Docusate Sodium 100 mg 05/10/20 15:44 Docusate Sodium 100 Mg Capsule PO DAILY PRN Constipation Enoxaparin Sodium 40 mg 05/10/20 16:00 05/11/20 16:00 Enoxaparin Sodium 40 Mg/0.4 Ml Syringe SUBCUT 40 mg Q24H SOLEDAD Administration Hydromorphone HCl 0.5 mg 05/10/20 18:17 05/12/20 06:42 Hydromorphone Hcl 0.5 Mg/0.5 Ml Syringe IVPUSH 0.5 mg Q4H PRN Administration Chest Pain Insulin Glargine 32 unit 05/10/20 21:00 05/12/20 09:21 Insulin Glargine,Hum.Rec.Anlog 100 Unit/Ml 10 Ml Vial SUBCUT 32 unit BID SOLEDAD Administration Insulin Human Lispro 0 unit 05/10/20 16:30 05/12/20 09:21 Insulin Lispro 100 Unit/Ml 3 Ml Vial SUBCUT 8 unit QIDACHS [facility] Administration Protocol Lidocaine 1 patch 05/10/20 14:30 05/12/20 09:19 Lidocaine 4 % Patch Adh..Patch TRANSDERMA 1 patch DAILY SOLEDAD Administration Protocol Nicotine Polacrilex 2 mg 05/10/20 15:44 Nicotine Polacrilex 2 Mg Lozenge BUCCAL Q2H PRN Nicotine Cravings Omeprazole 20 mg 05/10/20 21:00 05/12/20 09:22 Omeprazole 20 Mg Capsule.Dr PO 20 mg BID SOLEDAD Administration Ondansetron HCl 4 mg 05/10/20 15:44 Ondansetron Hcl 4 Mg/2 Ml Vial IVPUSH Q8H PRN Nausea and Vomiting Sodium Chloride 3 ml 05/10/20 16:00 05/12/20 09:23 0.9 % Sodium Chloride Flush 3 Ml Syringe IVFLUSH 3 ml QSHIFT SOLEDAD Administration Valsartan 160 mg 05/11/20 09:00 05/12/20 09:22 Valsartan 160 Mg Tablet PO 160 mg DAILY SOLEDAD Administration Time Spent With Patient Time: Total time spent is greater than 50% in coordination of care (as documented) at patient's floor/unit and/or counseling patient: Time with patient: 15 - 24 minutes Procedures Abscess I/D Date of Service: 05/12/20
[2020-05-12 10:34] LABS: Basophils Absolute Auto 0.1 X10*3/uL (0.0-0.2); Basophils Percent Auto 0.5 % (0-2); Eosinophils Absolute Auto 0.2 X10*3/uL (0.0-0.4); Hematocrit 38.4 % (37-47); Hemoglobin 12.4 g/dl (12.0-16.0); Imm Gran Abs Auto 0.08 X10*3/uL (0.00-0.03); Imm Gran Pct Auto 0.6 % (0.0-0.4); Lymphocytes Absolute Auto 2.4 X10*3/uL (1.2-4.9); Lymphocytes Percent Auto 16.9 % (20-40); MANUAL DIFF FLAG NO; Mean Corpuscular HGB Conc 32.3 g/dl (31.0-35.0); Mean Corpuscular Volume 89.9 fL (80-98); Mean Platelet Volume 11.1 fL (9.4-12.3); Monocytes Absolute Auto 1.2 X10*3/uL (0.1-1.2); Neutrophils Absolute Auto 10.5 X10*3/uL (2.0-8.3); Platelet Count 218 X10*3/uL (160-400); Red Blood Count 4.27 X10*6/uL (4.20-5.50); Red Cell Distribution Width 13.4 % (11.0-16.0); White Blood Count 14.4 X10*3/uL (4.8-10.8)
[2020-05-12 11:00] LABS: Anion Gap 13 (12-20); Blood Urea Nitrogen 28 mg/dL (9-16); Calcium 8.2 mg/dL (8.4-10.2); Carbon Dioxide 26 mmol/L (22-29); Chloride 95 mmol/L (96-108); Creatinine Clr Calc Pharmacy 66.3; Estimated Glomerular Filt Rate 57; Glucose Random 360 mg/dL (60-115); Potassium 4.6 mmol/l (3.3-5.1); Sodium 129 mmol/L (135-145)
[2020-05-12 11:26] LABS: Glucose, Whole Blood 307 mg/dL (60-115)
[2020-05-12 11:28] VITALS: BP 159/74; PULSE 99; RESP 20; TEMP 37.2; O2SAT 92
--- NOTE | 2020-05-12 11:46 | P.DS_ITS ---
DS: Providers Provider Date of admission: 05/10/20 11:41 Primary care physician: Karina Driscoll MD Consults: 05/10/20 11:58 Consult to Cardiology Routine Consulting Provider: Marek Aquino Reason for consultation: uncontrolled htn, chest pain Has provider been notified: No DS: Diagnosis Discharge Diagnosis (1) Hypertensive urgency, malignant: Status: Acute (2) Chest pain: Status: Acute DS: Medications Discharge Medications Home Medications: Home Medications Medication Instructions Recorded Confirmed Basaglar KwikPen U-100 Insulin 32 unit SUBCUT BID 05/10/20 05/10/20 clotrimazole applic TOPICAL 05/10/20 irbesartan 1 tab PO DAILY 05/10/20 05/10/20 metformin 2 tab PO QAM 05/10/20 05/10/20 omeprazole 1 cap PO BID 05/10/20 05/10/20 Previous Rx's Medication Instructions Recorded amlodipine 10 mg PO DAILY #30 tab 05/12/20 atorvastatin [Lipitor] 40 mg PO BEDTIME #30 tab 05/12/20 DS: Summary Hospital Course Hospital Course: 64-year-old female admitted with hypertensive urgency and chest pain, patiedgardo nt was started on blood pressure medication, for chest pain patient was monitored on telemetry, serial troponin were negative, chest pain was reproducible, patient was seen by Cardiology reconciled likely musculoskeletal chest pain ,ACS less likely, patient underwent echocardiogram shows EF 60-65% and no regional wall motion abnormality, chest pain was resolved, patient was hypoxic likely secondary to atelectasis, incentive spirometry was done, patient was weaned down to room air, chest pain was resolved, blood pressure was improved and remained stable patient was discharged home on amlodipine 10 mg continued on irbesartan, simvastatin was changed to Lipitor given patient started on amlodipine, patient will follow up cardiology Dr. Hendrickson as outpatient for stress test Time Spent with Patient Time attestation: Total time spent providing and/or coordinating discharge services: Physical Exam Vital Signs: Vital Signs: Last Vital Signs Temp 98.9 F 05/12/20 11:28 Pulse 99 05/12/20 11:28 Resp 20 05/12/20 11:28 BP 159/74 H 05/12/20 11:28 Pulse Ox 92 05/12/20 11:28 Body Mass Index 38.6 Const: Other: Last Vital Signs Temp 98.9 F 05/12/20 11:28 Pulse 99 05/12/20 11:28 Resp 20 05/12/20 11:28 BP 159/74 H 05/12/20 11:28 Pulse Ox 92 05/12/20 11:28 Body Mass Index 38.6 Nutritional Appearance: overweight Orientation/consciousness: patient oriented x3 HENMT: Head: Yes normocephalic and Yes atraumatic Eyes: Sclerae: sclerae normal Chest: Chest palpation & inspection: normal inspection of the chest Resp: Effort & Inspection: normal respiratory effort and no respiratory distress Auscultation: clear to auscultation bilaterally Cardio: Other: Last Vital Signs Temp 98.9 F 05/12/20 11:28 Pulse 99 05/12/20 11:28 Resp 20 05/12/20 11:28 BP 159/74 H 05/12/20 11:28 Pulse Ox 92 05/12/20 11:28 Body Mass Index 38.6 Rate: regular rate Rhythm: regular rhythm GI: Palpation (GI): Soft to palpation and nontender Skin: General skin exam: no rashes or lesions noted Neuro: General: patient oriented x3 Cranial nerves: Yes CN's II-XII intact bilaterally and Yes Bilaterally intact EOM present Extrem: General: Yes normal to inspection DS: Data Data Completed and Pending Labs on day of discharge: 05/10/20 06:17 ECG 12 lead EKG Stat EKG Documentation DIRECTED IV insert/maintain .Now 05/10/20 06:18 ECG 12 lead EKG Stat EKG Documentation DIRECTED 05/10/20 06:29 Labetalol HCL [Normodyne] 10 mg IVPUSH ONCE ONE 05/10/20 06:36 Complete Blood Count Auto Diff Stat Comprehensive Met. Panel Stat D Dimer Stat Lipase Stat Procalcitonin Stat Prothrombin Time INR Stat Troponin-I High Sensitivity Stat 05/10/20 06:47 Lidocaine HCl Viscous 2 % [Xylocaine Viscous 2 % Oral Christy] 10 ml MUCOUS MEM ONCE ONE Magnesium Hydrox/Alum Hydrox [Maalox] 30 ml PO ONCE ONE 05/10/20 06:48 CT angio chest Stat 05/10/20 06:49 Add Laboratory Test Stat 05/10/20 06:58 HYDROmorphone HCl [Dilaudid] 0.5 mg IVPUSH ONCE ONE 05/10/20 07:40 iohexoL 350 MG/ML [Omnipaque 350 MG/ML] 100 ml IV ONCE ONE 05/10/20 07:42 UA CC w/rflx Micro + Cult Stat 05/10/20 07:59 Morphine Sulfate 1 mg IVPUSH ONCE ONE 05/10/20 08:14 Nitroglycerin [Nitrostat] 0.4 mg SUBLINGUAL ONCE ONE 05/10/20 08:34 Pantoprazole Sodium [Protonix] 40 mg IVPUSH ONCE ONE 05/10/20 08:35 NIFEdipine ER [Procardia XL] 10 mg PO ONCE ONE 05/10/20 08:37 Nitroglycerin [Nitrostat] 0.4 mg SUBLINGUAL ONCE ONE 05/10/20 08:40 HYDROmorphone HCl [Dilaudid] 0.5 mg IVPUSH ONCE ONE 05/10/20 09:04 Ketorolac Tromethamine [Toradol] 15 mg IVPUSH ONCE ONE 05/10/20 09:47 B Type Natriuretic Peptide Routine COVID-19 ID NOW ([facility]) Stat Troponin-I High Sensitivity Routine 05/10/20 11:36 Transfer Order Routine 05/10/20 13:16 Morphine Sulfate 2 mg IVPUSH Q4H PRN 05/10/20 13:30 Add Laboratory Test Stat 05/10/20 14:01 HYDROmorphone HCl [Dilaudid] 0.5 mg IVPUSH ONCE ONE 05/10/20 15:44 Morphine Sulfate 4 mg IVPUSH Q4H PRN 05/10/20 Lunch Diabetic Diet 05/10/20 15:54 Add Laboratory Test Stat 05/10/20 16:16 Glucose, Whole Blood Routine 05/10/20 18:17 HYDROmorphone HCl [Dilaudid] 0.5 mg IVPUSH Q4H PRN 05/10/20 19:48 Glucose, Whole Blood Routine 05/10/20 22:01 EKG Documentation DIRECTED 05/10/20 22:02 Acetaminophen [Tylenol] 650 mg PO ONCE ONE 05/11/20 07:41 Glucose, Whole Blood Routine 05/11/20 09:00 amLODIPine Besylate [Norvasc] 5 mg PO DAILY 05/11/20 11:23 ECG 12 lead EKG Stat 05/11/20 11:24 EKG Documentation DIRECTED 05/11/20 11:27 amLODIPine Besylate [Norvasc] 5 mg PO ONCE ONE 05/11/20 11:42 Glucose, Whole Blood Routine 05/11/20 12:17 Troponin-I High Sensitivity Stat 05/11/20 14:00 CA echo transthoracic complete Routine 05/11/20 16:22 Glucose, Whole Blood Routine 05/11/20 20:29 Glucose, Whole Blood Routine 05/12/20 08:30 Glucose, Whole Blood Routine 05/12/20 10:00 Basic Metabolic Panel Routine Complete Blood Count Auto Diff Routine 05/12/20 10:59 Glucose, Whole Blood Routine Laboratory Last Values WBC 14.4 X10*3/uL (4.8-10.8) H 05/12/20 10:00 RBC 4.27 X10*6/uL (4.20-5.50) 05/12/20 10:00 Hgb 12.4 g/dl (12.0-16.0) 05/12/20 10:00 Hct 38.4 % (37-47) 05/12/20 10:00 MCV 89.9 fL (80-98) 05/12/20 10:00 MCH 29.0 pg (27.0-33.0) 05/12/20 10:00 MCHC 32.3 g/dl (31.0-35.0) 05/12/20 10:00 RDW 13.4 % (11.0-16.0) 05/12/20 10:00 Plt Count 218 X10*3/uL (160-400) 05/12/20 10:00 MPV 11.1 fL (9.4-12.3) 05/12/20 10:00 Immature Gran % (Auto) 0.6 % (0.0-0.4) H 05/12/20 10:00 Neut % (Auto) 73.0 % (45-73) 05/12/20 10:00 Lymph % (Auto) 16.9 % (20-40) L 05/12/20 10:00 [place] % (Auto) 8.0 % (2-11) 05/12/20 10:00 Eos % (Auto) 1.0 % (0-4) 05/12/20 10:00 Baso % (Auto) 0.5 % (0-2) 05/12/20 10:00 Lymph # (Auto) 2.4 X10*3/uL (1.2-4.9) 05/12/20 10:00 [place] # (Auto) 1.2 X10*3/uL (0.1-1.2) 05/12/20 10:00 Eos # (Auto) 0.2 X10*3/uL (0.0-0.4) 05/12/20 10:00 Baso # (Auto) 0.1 X10*3/uL (0.0-0.2) 05/12/20 10:00 Abs Immat Gran (auto) 0.08 X10*3/uL (0.00-0.03) H 05/12/20 10:00 Absolute Neuts (auto) 10.5 X10*3/uL (2.0-8.3) H 05/12/20 10:00 Absolute Nucleated RBC 0.000 X10*3/uL (0.0-0.012) 05/12/20 10:00 Nucleated RBC % (auto) 0.0 /100WBC (0.0-0.2) 05/12/20 10:00 PT 12.0 SEC (10.8-13.0) 05/10/20 06:36 INR 1.0 (0.9-1.1) 05/10/20 06:36 D-Dimer < 200 NG/ML 05/10/20 06:36 Sodium 129 mmol/L (135-145) L 05/12/20 10:00 Potassium 4.6 mmol/l (3.3-5.1) 05/12/20 10:00 Chloride 95 mmol/L (96-108) L 05/12/20 10:00 Carbon Dioxide 26 mmol/L (22-29) 05/12/20 10:00 Anion Gap 13 (12-20) 05/12/20 10:00 BUN 28 mg/dL (9-16) H D 05/12/20 10:00 Creatinine 0.97 mg/dL (0.5-1.4) 05/12/20 10:00 Estim Creat Clear Calc 66.3 05/12/20 10:00 Estimated GFR 57 05/12/20 10:00 POC Glucose 307 mg/dL (60-115) H 05/12/20 10:59 Random Glucose 360 mg/dL (60-115) H* 05/12/20 10:00 Calcium 8.2 mg/dL (8.4-10.2) L D 05/12/20 10:00 Total Bilirubin 0.5 mg/dL (0.0-1.0) 05/10/20 06:36 AST 22 U/L (5-31) 05/10/20 06:36 ALT 38 U/L (0-31) H 05/10/20 06:36 Alkaline Phosphatase 97 U/L (39-117) 05/10/20 06:36 Troponin I High Sens 4.0 ng/L (<3.5-17.0) 05/11/20 12:17 B-Natriuretic Peptide 14 pg/mL (<100) 05/10/20 09:47 Total Protein 7.1 g/dL (6.5-8.0) 05/10/20 06:36 Albumin 4.1 g/dL (3.5-5.0) 05/10/20 06:36 Lipase 14 U/L (8-78) 05/10/20 06:36 Procalcitonin 0.04 ng/mL 05/10/20 06:36 Urine Color YELLOW 05/10/20 07:42 Urine Appearance CLEAR 05/10/20 07:42 Urine pH 6.5 (5.0-8.0) 05/10/20 07:42 Ur Specific [place] 1.015 (1.005-1.025) 05/10/20 07:42 Urine Protein NEG MG/DL (NEG-TRACE) 05/10/20 07:42 Urine Glucose (UA) 250 MG/DL (NEG) H 05/10/20 07:42 Urine Ketones NEG MG/DL (NEG) 05/10/20 07:42 Urine Blood NEG (NEG) 05/10/20 07:42 Urine Nitrite NEG (NEG) 05/10/20 07:42 Ur Leukocyte Esterase NEG (NEG) 05/10/20 07:42 COVID-19 ([facility]) Negative (Negative) 05/10/20 09:47 COVID-19 Clin Com See Note 05/10/20 09:47 Discharge Plan Discharge Anticipated Discharge Date/Time: 05/13/20 11:34 Patient Disposition: Home, Self-Care Referrals: Karina Driscoll MD [Primary Care Provider] - Discharge Medications: New amlodipine 10 mg tablet 10 mg PO DAILY Qty: 30 RF: 0 atorvastatin [Lipitor] 40 mg tablet 40 mg PO BEDTIME Qty: 30 RF: 0 oxycodone 5 mg tablet 5 mg PO Q6H PRN (Reason: pain (scale score 4-6)) Qty: 14 RF: 0 polyethylene glycol 3350 [Miralax] 17 gram powder in packet 17 g PO DAILY Qty: 14 RF: 0 Continued metformin 1,000 mg tablet 2 tab PO QAM RF: 0 omeprazole 20 mg capsule,delayed release(DR/EC) 1 cap PO BID RF: 0 clotrimazole 1 % cream topical RF: 0 irbesartan 300 mg tablet 1 tab PO DAILY RF: 0 Basaglar SaleemikBryce U-100 Insulin 100 unit/mL (3 mL) insulin pen 32 unit subcut BID RF: 0 Discontinued amlodipine 2.5 mg tablet 1 tab PO DAILY RF: 0 simvastatin 40 mg tablet 1 tab PO BEDTIME RF: 0 Discharge Orders: Discharge Order (Routine); Ordered 05/13/20 Ordered By: [place] Hinojosa Diet: low fat, low cholesterol Activity on Discharge: As tolerated Discharge Date/Time: 05/13/20 12:54 Visit Report Forms: Patient Portal Discharge page Care Plan Goals: treat HTN Health Concerns: uncontrolled hypertension Plan of Treatment: antihypertensive adjusted
--- NOTE | 2020-05-12 11:54 | MHC.CM.PN ---
Patient has been medically cleared for dc to home today, no services.Last IMM addressed on 05/11/2020.
[2020-05-12] MEDS: polyethylene glycoL 3350 17 GM POWD.PACK PO (12:00)
[2020-05-12] MEDS: oxyCODONE HCl Immed Release 5 MG TABLET PO ×2 (15:07→21:04)
[2020-05-12 15:41] VITALS: PULSE 110; O2SAT 89
[2020-05-12 16:00] VITALS: BP 117/60; PULSE 96; RESP 18; TEMP 36.6; O2SAT 92
[2020-05-12] MEDS: Enoxaparin Sodium 40 MG/0.4 ML SYRINGE SUBCUT (16:03)
--- NOTE | 2020-05-12 16:04 | HO.PM.IMPN ---
Subjective Subjective Date of Service: 05/12/20 Interval History: patient seen and examined at bedside patient still reporting reproducible chest pain still requiring oxygen Constitutional Constitutional: Reports weakness Cardiovascular Cardiovascular: Reports chest pain and Reports dyspnea Respiratory Respiratory: Reports dyspnea Gastrointestinal Gastrointestinal: Denies vomiting Neurologic Neurologic: Reports weakness Physical Exam Vital Signs: Vital Signs: Last Vital Signs Temp 98.9 F 05/12/20 11:28 Pulse 99 05/12/20 11:28 Resp 20 05/12/20 11:28 BP 159/74 H 05/12/20 11:28 Pulse Ox 92 05/12/20 11:28 Body Mass Index 38.6 Const: Other: Last Vital Signs Temp 98.9 F 05/12/20 11:28 Pulse 99 05/12/20 11:28 Resp 20 05/12/20 11:28 BP 159/74 H 05/12/20 11:28 Pulse Ox 92 05/12/20 11:28 Body Mass Index 38.6 Nutritional Appearance: overweight Orientation/consciousness: patient oriented x3 HENMT: Head: Yes normocephalic and Yes atraumatic Eyes: Sclerae: sclerae normal Chest: Chest palpation & inspection: normal inspection of the chest Resp: Effort & Inspection: normal respiratory effort and no respiratory distress Auscultation: clear to auscultation bilaterally Cardio: Other: Last Vital Signs Temp 98.9 F 05/12/20 11:28 Pulse 99 05/12/20 11:28 Resp 20 05/12/20 11:28 BP 159/74 H 05/12/20 11:28 Pulse Ox 92 05/12/20 11:28 Body Mass Index 38.6 Rate: regular rate Rhythm: regular rhythm GI: Palpation (GI): Soft to palpation and nontender Skin: General skin exam: no rashes or lesions noted Neuro: General: patient oriented x3 Cranial nerves: Yes CN's II-XII intact bilaterally and Yes Bilaterally intact EOM present Extrem: General: Yes normal to inspection Objective Data Current Medications Generic Name Dose Route Start Last Admin Trade Name Freq PRN Reason Stop Dose Admin Acetaminophen 650 mg 05/10/20 15:44 05/12/20 15:03 Acetaminophen 325 Mg Tablet PO 650 mg Q6H PRN Administration Pain, Mild (Pain Scale 1-3) Amlodipine Besylate 10 mg 05/12/20 09:00 05/12/20 09:22 Amlodipine Besylate 2.5 Mg Tablet PO 10 mg DAILY SOLEDAD Administration Protocol Atorvastatin Calcium 20 mg 05/10/20 21:00 05/11/20 20:58 Atorvastatin Calcium 20 Mg Tablet PO 20 mg BEDTIME SOLEDAD Administration Docusate Sodium 100 mg 05/10/20 15:44 Docusate Sodium 100 Mg Capsule PO DAILY PRN Constipation Enoxaparin Sodium 40 mg 05/10/20 16:00 05/11/20 16:00 Enoxaparin Sodium 40 Mg/0.4 Ml Syringe SUBCUT 40 mg Q24H SOLEDAD Administration Ibuprofen 600 mg 05/12/20 16:02 Ibuprofen 600 Mg Tablet PO Q8H PRN Pain, Moderate (Pain Scale 4-6 Insulin Glargine 32 unit 05/10/20 21:00 05/12/20 09:21 Insulin Glargine,Hum.Rec.Anlog 100 Unit/Ml 10 Ml Vial SUBCUT 32 unit BID SOLEDAD Administration Insulin Human Lispro 0 unit 05/10/20 16:30 05/12/20 12:01 Insulin Lispro 100 Unit/Ml 3 Ml Vial SUBCUT 8 unit QIDACHS SOLEDAD Administration Protocol Lidocaine 1 patch 05/10/20 14:30 05/12/20 09:19 Lidocaine 4 % Patch Adh..Patch TRANSDERMA 1 patch DAILY SOLEDAD Administration Protocol Nicotine Polacrilex 2 mg 05/10/20 15:44 Nicotine Polacrilex 2 Mg Lozenge BUCCAL Q2H PRN Nicotine Cravings Omeprazole 20 mg 05/10/20 21:00 05/12/20 09:22 Omeprazole 20 Mg Capsule.Dr PO 20 mg BID SOLEDAD Administration Ondansetron HCl 4 mg 05/10/20 15:44 Ondansetron Hcl 4 Mg/2 Ml Vial IVPUSH Q8H PRN Nausea and Vomiting Sodium Chloride 3 ml 05/10/20 16:00 05/12/20 09:23 0.9 % Sodium Chloride Flush 3 Ml Syringe IVFLUSH 3 ml QSHIFT SOLEDAD Administration Valsartan 160 mg 05/11/20 09:00 05/12/20 09:22 Valsartan 160 Mg Tablet PO 160 mg DAILY SOLEDAD Administration Labs CBC & Chem 7: 05/12/20 10:00 05/12/20 10:00 Assessment and Plan (1) Hypertensive urgency, malignant: Status: Acute (2) Chest pain: Status: Acute Assessment and Plan: this is a 64-year-old female with history of diabetes, hypertension, dyslipidemia who presented to the emergency department with chest pain found to have elevated blood pressure. Chest pain atypical likely secondary to uncontrolled hypertension cardiac enzymes negative x2 no ischemic changes on EKG seen by Cardiology recommended repeat EKG and troponin echocardiogram repeat troponin negative continue pain management Hypertensive urgency blood pressure improved cardiology following continue amlodipine continue ARB leukocytosis appears to be chronic CTA without evidence of pneumonia or dissection urinalysis negative monitor CBC difficulty swallowing seen by speech recommended regular diet IDDM continue Lantus and SSI, monitor POCs -hold Metformin (received contrast for PE study) HLD - continue statin tobacco use -NRT gerd -Continue omeprazole DVT ppx - lovenonx
[2020-05-12 16:07] LABS: Glucose, Whole Blood 396 mg/dL (60-115)
--- NOTE | 2020-05-12 18:59 | PC.NURSE ---
1630- POC 396, Dr. Hinojosa made aware. Dr. Hinojosa stated to give scheduled insulin only. 10 units SSI given. Pt eating dinner. Will continue to monitor.
[2020-05-12 19:42] VITALS: BP 150/69; PULSE 95; RESP 18; TEMP 36.1; O2SAT 93
[2020-05-12 20:46] LABS: Glucose, Whole Blood 334 mg/dL (60-115)
[2020-05-12] MEDS: Atorvastatin Calcium 20 MG TABLET PO (21:04)
[2020-05-12 23:21] VITALS: BP 148/74; PULSE 94; RESP 18; TEMP 36.8; O2SAT 92
[2020-05-13 03:19] VITALS: BP 148/74; PULSE 91; RESP 18; TEMP 36.7; O2SAT 91
[2020-05-13] MEDS: Ibuprofen 600 MG TABLET PO (03:30)
[2020-05-13 07:09] VITALS: BP 166/65; PULSE 91; RESP 19; TEMP 36.1; O2SAT 94
[2020-05-13 07:37] LABS: Glucose, Whole Blood 270 mg/dL (60-115)
[2020-05-13] MEDS: Lidocaine 4 % Patch ADH..PATCH 1 PATCH TRANSDERMA (08:04)
[2020-05-13] MEDS: Insulin Glargine,Hum.rec.anlog 100 UNIT/ML 10 ML VIAL 32 UNIT SUBCUT (08:04)
[2020-05-13] MEDS: 0.9 % Sodium Chloride Flush 3 ML SYRINGE IVFLUSH (08:05)
[2020-05-13] MEDS: Insulin Lispro 100 UNIT/ML 3 ML VIAL SUBCUT ×2 (08:05→11:15)
[2020-05-13] MEDS: Valsartan 160 MG TABLET PO (08:05)
[2020-05-13] MEDS: Omeprazole 20 MG CAPSULE.DR PO (08:05)
[2020-05-13] MEDS: amLODIPine Besylate 2.5 MG TABLET 10 MG PO (08:05)
--- NOTE | 2020-05-13 10:42 | PM.PNCARD ---
Subjective Subjective Interval history: Her chest pain seems much better. She still has some discomfort when she tries to push against the chair and get up. Review of Systems Review of Systems cardiac- non anginal sounding chest pain; not short of breath; no palpitations or dizzy spells or syncopal episodes. Yes all other systems are reviewed and are negative Physical Exam Vital Signs: Last Vital Signs Temp 99.2 F 05/11/20 23:47 Pulse 96 05/12/20 08:00 Resp 20 05/12/20 08:00 BP 169/76 H 05/12/20 08:00 Pulse Ox 92 05/12/20 08:00 Body Mass Index 38.6 Comfortable, no distress No pallor, icterus or cyanosis HEENT -unremarkable JVD- normal Cardiac- normal heart sounds, no murmurs, gallops or rubs, normal PMI Respiratory-normal breath sounds bilaterally, no crackles, no wheeze Abdomen- soft, nontender Neuro- alert and oriented Lower extremities- no significant edema, warm well perfused Results Labs and Meds Result diagrams: 05/12/20 10:00 05/12/20 10:00 Lab results: Laboratory Results - last 24 hr 05/12/20 05/12/20 05/12/20 10:00 10:59 16:03 Sodium 129 L Potassium 4.6 Chloride 95 L Carbon Dioxide 26 Anion Gap 13 BUN 28 H D Creatinine 0.97 Estim Creat Clear Calc 66.3 Estimated GFR 57 POC Glucose 307 H 396 H* Random Glucose 360 H* Calcium 8.2 L D 05/12/20 05/13/20 20:43 07:12 Sodium Potassium Chloride Carbon Dioxide Anion Gap BUN Creatinine Estim Creat Clear Calc Estimated GFR POC Glucose 334 H 270 H Random Glucose Calcium Progress Note: A&P Assessment and plan (1) Hypertensive urgency, malignant: Status: Acute (2) Chest pain: Status: Acute Assessment and Plan: Her chest pain itself is likely musculoskeletal based on description. Possibly related to the sternal fracture that she has had in the past. So far, 3 troponins are negative. Echocardiogram does not show any obvious wall motion abnormalities. Amlodipine dose has been increased. Otherwise there is room to go up on the ARB. Discharge planning. We can get an outpatient stress test in the next few days. Follow-up will be arranged. Fall Risk Details Current Medications: Current Medications Generic Name Dose Route Start Last Admin Trade Name Freq PRN Reason Stop Dose Admin Acetaminophen 650 mg 05/10/20 15:44 05/12/20 15:03 Acetaminophen 325 Mg Tablet PO 650 mg Q6H PRN Administration Pain, Mild (Pain Scale 1-3) Amlodipine Besylate 10 mg 05/12/20 09:00 05/13/20 08:05 Amlodipine Besylate 2.5 Mg Tablet PO 10 mg DAILY SOLEDAD Administration Protocol Atorvastatin Calcium 20 mg 05/10/20 21:00 05/12/20 21:04 Atorvastatin Calcium 20 Mg Tablet PO 20 mg BEDTIME SOLEDAD Administration Docusate Sodium 100 mg 05/10/20 15:44 Docusate Sodium 100 Mg Capsule PO DAILY PRN Constipation Enoxaparin Sodium 40 mg 05/10/20 16:00 05/12/20 16:03 Enoxaparin Sodium 40 Mg/0.4 Ml Syringe SUBCUT 40 mg Q24H SOLEDAD Administration Ibuprofen 600 mg 05/12/20 16:02 05/13/20 03:30 Ibuprofen 600 Mg Tablet PO 600 mg Q8H PRN Administration Pain, Moderate (Pain Scale 4-6 Insulin Glargine 32 unit 05/10/20 21:00 05/13/20 08:04 Insulin Glargine,Hum.Rec.Anlog 100 Unit/Ml 10 Ml Vial SUBCUT 32 unit BID SOLEDAD Administration Insulin Human Lispro 0 unit 05/10/20 16:30 05/13/20 08:05 Insulin Lispro 100 Unit/Ml 3 Ml Vial SUBCUT 6 unit QIDACHS SOLEDAD Administration Protocol Lidocaine 1 patch 05/10/20 14:30 05/13/20 08:04 Lidocaine 4 % Patch Adh..Patch TRANSDERMA 1 patch DAILY SOLEDAD Administration Protocol Nicotine Polacrilex 2 mg 05/10/20 15:44 Nicotine Polacrilex 2 Mg Lozenge BUCCAL Q2H PRN Nicotine Cravings Omeprazole 20 mg 05/10/20 21:00 05/13/20 08:05 Omeprazole 20 Mg Capsule.Dr PO 20 mg BID SOLEDAD Administration Ondansetron HCl 4 mg 05/10/20 15:44 Ondansetron Hcl 4 Mg/2 Ml Vial IVPUSH Q8H PRN Nausea and Vomiting Sodium Chloride 3 ml 05/10/20 16:00 05/13/20 08:05 0.9 % Sodium Chloride Flush 3 Ml Syringe IVFLUSH 3 ml QSHIFT SOLEDAD Administration Valsartan 160 mg 05/11/20 09:00 05/13/20 08:05 Valsartan 160 Mg Tablet PO 160 mg DAILY SOLEDAD Administration Time Spent With Patient Time: Total time spent is greater than 50% in coordination of care (as documented) at patient's floor/unit and/or counseling patient: Time with patient: 15 - 24 minutes Procedures Abscess I/D Date of Service: 05/13/20
[2020-05-13 11:04] VITALS: BP 130/58; PULSE 86; RESP 20; O2SAT 95
[2020-05-13 11:25] LABS: Glucose, Whole Blood 281 mg/dL (60-115)
--- NOTE | 2020-05-13 11:30 | MHC.CM.PN ---
Patient has been medically cleared for dc to home today, no services. Last IMM addressed on 05/11/20.
[2020-05-13] MEDS: oxyCODONE HCl Immed Release 5 MG TABLET PO (12:02)
== END 2020-05-13 12:54 | disposition home or self-care (01) | DRG 305 ==
LOC: HO.ED 12:21 → HO.IMC 15:33
PROVIDERS: Physician Assistant Medical; Student in an Organized Health Care Education/Training Program; Admitting Provider Family Medicine; Emergency Provider Emergency Medicine; PCP Internal Medicine; Visit Provider Internal Medicine
DX: I16.0 Hypertensive urgency (principal); K21.9 Gastro-esophageal reflux disease without esophagitis; J45.909 Unspecified asthma, uncomplicated; E11.9 Type 2 diabetes mellitus without complications; F17.210 Nicotine dependence, cigarettes, uncomplicated; E78.5 Hyperlipidemia, unspecified; R13.10 Dysphagia, unspecified; I10 Essential (primary) hypertension; Z71.6 Tobacco abuse counseling; D72.829 Elevated white blood cell count, unspecified; Z20.828 Contact with and (suspected) exposure to other viral communicable diseases; Z88.5 Allergy status to narcotic agent; Z79.4 Long term (current) use of insulin; Z79.891 Long term (current) use of opiate analgesic; Z79.899 Other long term (current) drug therapy
CPT/HCPCS: 36415; 71275; 80048; 80053; 81003; 82947; 83690; 83880; 84145; 84484; 85025; 85379; 85610; 87635; 92610; 93005; 93306; 96374; 96375; 96376; 99285; J1170; J1650; J1885; J2270; Q9967

== ENCOUNTER → 2020-05-19 08:14 | Outpatient (REF) | payer MEDICARE, SELFPAY ==
--- NOTE | 2020-05-19 08:30 | CA_ITS ---
Acquisition Time: 2020-05-19 08:28:23 Total Exercise Time: 00:02:00 Test Indications: Chest Pain Medications: AMLODIPINE ATORVASTATIN METFORMIN OMEPRAZOLE IRBESARTAN INSULIN OXYCODONE Protocol: LEXISCAN Max HR: 117 BPM 75% of Pred: 154 BPM Max BP: 140/074 mmHG Max Work Load: 1.0 METS Pharmacological stress test using Lexiscan while sitting and kicking her feet. Pt tolerated well, denies any anginal sx. EKG without any arrhythmias, non-diagnostic for ischemia. Nuclear images to follow. Normotensiver esponse to test. Test reviewed with Dr. Hendrickson Referred By: Blaine Hendrickson Overread By: Steph Mcgee
--- NOTE | 2020-05-19 08:46 | NM_ITS ---
Myocardial perfusion study Indication: Chest pain to evaluate for myocardial ischemia Technique: The patient was brought in for a Lexiscan perfusion study on 05/19/2020. Patient performed low-level exercise and was injected 0.4 mg of Lexiscan intravenously. Within a minute of injection, 30 mCi of sestamibi was given intravenously. Images were obtained using the SPECT gamma camera interlaced with the gating device. Images were obtained in supine position. Resting perfusion study was performed on 05/20/2020. Patient was administered 30 mCi of sestamibi intravenously at rest. Images were then obtained in supine position. Images obtained with and without CT attenuation. Total DLP [id number]-CM. Images were processed with the software and compared side to side in short axis, horizontal long axis and vertical long axis views. Findings: The stress perfusion study showed non attenuated images show mildly reduced uptake in the anterolateral distal anterior and basal anterior wall of the LV myocardium. Remainder of the LV myocardium is normally perfused. Attenuation corrected images show normal uptake of radiotracer in all segments of LV myocardium. The gated study shows normal LV systolic function with calculated LVEF of 65%. LV cavity is normal in size. The gated study shows normal systolic wall thickening and contraction of segments. Resting study shows normal uptake of radiotracer in all segments of LV myocardium. Gating at rest reveals normal systolic wall motion with ejection fraction at 66%. The findings are consistent with likely normal myocardial perfusion. NM/NM cardiolite stress test Impression: 1. Myocardial perfusion imaging study shows likely normal myocardial perfusion with suggestion of breast attenuation on non attenuated images 2. Gated LVEF is 65% 3. Transient ischemic dilatation not present EKG is nondiagnostic for ischemia
== END ==
LOC: HO.CARD 08:14
PROVIDERS: PCP Internal Medicine; Visit Provider Internal Medicine
DX: R07.9 Chest pain, unspecified (principal)
CPT/HCPCS: 78452; 93017; A9500; J0280; J2785

== ENCOUNTER 2020-05-22 07:58 | Emergency (ER) | payer MEDICARE, SELFPAY ==
[2020-05-22 08:08] VITALS: BP 150/68; PULSE 98; RESP 24; TEMP 37.2; O2SAT 95; BMI 42.4
--- NOTE | 2020-05-22 08:16 | ECG_ITS ---
Test Reason : SHORT OF BREATH Blood Pressure : / mmHG Vent. Rate : 098 BPM Atrial Rate : 098 BPM P-R Int : 162 ms QRS Dur : 082 ms QT Int : 356 ms P-R-T Axes : 034 -01 042 degrees QTc Int : 454 ms Normal sinus rhythm Low voltage QRS Otherwise normal ECG When compared with ECG of 11-MAY-2020 13:39, ST no longer elevated in Anterolateral leads T wave amplitude has decreased in Lateral leads Referred By: Yuly Tello Electronically Signed By:DEEP VÁZQUEZ MD
--- NOTE | 2020-05-22 08:16 | XR_ITS ---
EXAMINATION: XR CHEST CLINICAL INFORMATION: SOB. COMPARISON: Chest 04/15/2018 TECHNIQUE: 2 views of the chest were obtained. FINDINGS: There is moderate cardiomegaly with normal pulmonary vascularity. The lungs are well-expanded with left lower lobe opacification in the retrocardiac region. There is mild spondylosis dorsal spine. No lytic process. XR/XR chest 2V IMPRESSION: Moderate cardiomegaly. Left lower lobe retrocardiac opacity likely consolidation and/or atelectasis, new since previous study 04/15/2018.
[2020-05-22 08:46] LABS: Basophils Absolute Auto 0.1 X10*3/uL (0.0-0.2); Basophils Percent Auto 0.4 % (0-2); Eosinophils Percent Auto 0.3 % (0-4); Hematocrit 35.3 % (37-47); Hemoglobin 11.4 g/dl (12.0-16.0); Imm Gran Abs Auto 0.08 X10*3/uL (0.00-0.03); Imm Gran Pct Auto 0.5 % (0.0-0.4); Lymphocytes Absolute Auto 1.7 X10*3/uL (1.2-4.9); Lymphocytes Percent Auto 10.9 % (20-40); MANUAL DIFF FLAG SCAN; Mean Corpuscular HGB Conc 32.3 g/dl (31.0-35.0); Mean Corpuscular Hemoglobin 28.8 pg (27.0-33.0); Mean Corpuscular Volume 89.1 fL (80-98); Mean Platelet Volume 9.7 fL (9.4-12.3); Monocytes Absolute Auto 1.7 X10*3/uL (0.1-1.2); Monocytes Percent Auto 10.6 % (2-11); Neutrophils Absolute Auto 12.2 X10*3/uL (2.0-8.3); Neutrophils Percent Auto 77.3 % (45-73); Platelet Count 359 X10*3/uL (160-400); Red Blood Count 3.96 X10*6/uL (4.20-5.50); Red Cell Distribution Width 13.6 % (11.0-16.0); SCAN SMEAR FLAG 1; White Blood Count 15.7 X10*3/uL (4.8-10.8)
[2020-05-22 08:49] LABS: INTERNATIONAL NORM RATIO 1.4 (0.9-1.1)
--- NOTE | 2020-05-22 08:53 | ED_ITS ---
HPI - SOB/Dyspnea General Chief Complaint: Dyspnea Stated Complaint: DIFF BREATHING Time Seen by Provider: 05/22/20 08:14 Source: patient Mode of arrival: ambulatory Limitations: no limitations History of Present Illness HPI Narrative: 64yoF c PMHx of DM, HTN, HLD, asthma and GERD presenting to the ED c c/o SOB, OLIVERA and orthopnea x 2 weeks since she was discharged here after being hospitalized for chest pain. Patient reports increased bilateral lower leg swelling associated with this. Reports that she was recently started on Norvasc by her primary care provider at 2.5 mg daily and was increased to 5 mg while here in the hospital recommended by the instructor psychiatric aide while she was here in the hospital. Also had a CTA of chest without evidence of pneumonia or PE. Patient denies any dizziness, headaches, nausea/vomiting, chest pain, paresthesias, cough, wheezing, abdominal pain, dysuria or any other symptoms complaints or concerns at this time. Related Data Home Medications Medication Instructions Recorded Confirmed Basaglar KwikPen U-100 Insulin 32 unit SUBCUT BID 05/10/20 05/22/20 clotrimazole 1 applic TOPICAL BID 05/10/20 05/22/20 irbesartan 1 tab PO DAILY 05/10/20 05/22/20 metformin 2 tab PO QAM 05/10/20 05/22/20 omeprazole 1 cap PO BID 05/10/20 05/22/20 dulaglutide [Trulicity] 0.75 mg SUBCUT QWEEK 05/22/20 05/22/20 Previous Rx's Medication Instructions Recorded amlodipine 10 mg PO DAILY #30 tab 05/12/20 atorvastatin [Lipitor] 40 mg PO BEDTIME #30 tab 05/12/20 oxycodone 5 mg PO Q6H PRN #14 tab 05/12/20 polyethylene glycol 3350 [Miralax] 17 g PO DAILY #14 ea 05/12/20 Allergies Allergy/AdvReac Type Severity Reaction Status Date / Time demerol Allergy Unknown Unknown Uncoded 05/10/20 06:10 lisinopril Allergy Unknown Unknown Uncoded 05/10/20 06:10 Review of Systems Review of Systems: Constitutional : No Weight gain/loss, No Fever, No Chills, No Night Sweats, No Fatigue, No Malaise ENT/Mouth : No Hearing loss, No Ear Pain, No Nasal Congestion, No Sinus Pain, No Hoarseness, No sore throat, No Rhinorrhea, No Swallowing Difficulty Eyes: No Eye Pain, No Swelling, No Redness, No Foreign Body, No Discharge, No Vision Changes Cardiovascular : + SOB, + Dyspnea on Exertion, + Orthopnea, + Edema, + extremity swelling, No Palpitations Respiratory : No Cough, No Sputum, No Wheezing, No Dyspnea Gastrointestinal : No Nausea, No Vomiting, No Diarrhea, No abdominal Pain, No Hematochezia, No Melena Genitourinary : No irregular bleeding, No Dysuria, No Urinary Frequency, No Hematuria, No Urinary Incontinence, No Urgency, No Flank Pain, No Urinary Flow Changes, No Hesitancy Musculoskeletal : No joint pain, No Myalgias, No Joint Swelling Skin : No Skin Lesions, No rash Neuro : No Weakness, No Numbness, No Paresthesias, No Loss of Consciousness, No Dizziness, No Headache Psych : No Anxiety/Panic, No Depression, No SI/HI/AH/VH Heme/Lymph: No Bruising, No Bleeding,No Lymphadenopathy Endocrine : No Polyuria, No Polydipsia, No Temperature Intolerance Yes all other systems are reviewed and are negative [facility] Past Medical History Medical History (Updated 05/22/20 @ 10:48 by MARY Allen) Asthma Diabetes Diverticulitis Dizziness GERD (gastroesophageal reflux disease) High cholesterol HTN (hypertension) Small bowel obstruction Surgical History H/O exploratory laparotomy History of bilateral knee replacement History of partial colectomy Status post total abdominal hysterectomy Family History Family History Sister Diabetes ESRD (end stage renal disease) on dialysis Father CAD (coronary artery disease) Social History Social History Alcohol intake: never Smoking Status: Current some day smoker Cigarettes Per Day: 5 Advance Directives: No Advance Directives Information Provided: Yes service: No Current occupational status: retired Physical Exam Vital Signs: Vital Signs: Last Vital Signs Temp 99.0 F 05/22/20 08:08 Pulse 97 05/22/20 09:50 Resp 20 05/22/20 09:50 BP 145/67 H 05/22/20 09:50 Pulse Ox 97 05/22/20 09:50 Body Mass Index 42.4 vital signs have been reviewed as normal and appeared to be correct. Blood pressure normal. Heart rate tachycardic. Respiration rate tachypneic. Temperature normal. Oxygen saturation low at 88% on room air placed on 3 L of nasal cannula oxygen now at 96%. Appearance: Alert. Oriented X3. Low O2 sat 88% on room air although placed on 3 L of nasal cannula oxygen and now feels better otherwise no other acute distress. Head: Normal external exam. Normocephalic. Atraumatic. Eyes: PERRLA. EOMI. Conjunctiva and sclera normal. Eyelids normal. ENT: Pharynx normal. Uvula midline. Moist mucous membranes. No trismus noted. No drooling noted. No muffled voice noted. Neck: Normal inspection. Neck supple. FROM. No adenopathy. No meningeal signs. CVS: Normal heart rate and rhythm. Heart sound normal. No murmurs noted. Pulses normal throughout. Respiratory: Mild Respiratory distress noted. No wheezes/rales/rhonchi noted. Chest nontender. + accessory muscle usage noted or decreased air movement noted. Back: Full range of motion noted. Skin: Skin warm and dry. Normal skin color. Normal skin turgor. No rashes/lesions/lacerations noted. Extremities: + lower extremity edema. Extremities exhibit normal range of motion. Extremities nontender. Neuro: Oriented X 3. No motor deficit. No sensory deficit. Reflexes normal. Course Course Course Narrative: 8:16pm - 64yoF c PMHx of DM, HTN, HLD, asthma and GERD presenting to the ED c c/o SOB, OLIVERA and orthopnea x 2 weeks since she was discharged here after being hospitalized for chest pain c associated b/l lower extremity edema. - on arrival patient was tachycardic, tachypneic and hypoxic therefore she was placed on 3 L of nasal cannula oxygen her O2 sat went to 96%. No other acute distress. - patient had a CTA on 05/10/2020 which was negative for PE or any other acute processes. Patient also had an echo which did not show any obvious wall motion abnormalities. - Concern for CHF vs PNA. - Plan: Labs, CXR, EKG then re-evaluate. Reevaluation(s) Reevaluation #1: - Pt c elevated WBC at 15,000, Low Mag at 1.2, ALT at 53. Alkaline phosphate at 164. Otherwise all other labs are within normal limits including BNP and troponin. EKG NSR no acute ischemic changes noted. CXR revelaed Moderate cardiomegaly. Left lower lobe retrocardiac opacity likely consolidation and/or atelectasis, new since previous study 04/15/2018. COVID swab negative. - therefore will obtain blood cultures and lactic acid. We will obtain a CT scan of chest to evaluate for possible pneumonia provide fluids and re-evaluate. Time: 09:20 Reevaluation #2: Lactic acid 1.4. CT scan of chest without contrast revealed pericardial effusion and new left lower lobe consolidation. Patient most likely pneumonia hospital-acquired. Therefore will give IV antibiotics cefepime 2 g and plan to admit for pericardial effusion, hospital-acquired pneumonia with hypoxia and hypo magnesium. Patient understands agrees with this plan. Time: 10:45 MDM - SOB/Dyspnea Medical Records Attestation: I reviewed the patient's medical records. Lab Data Attestation: I reviewed the patient's lab results. Result diagrams: 05/22/20 08:34 05/22/20 08:34 Labs: Lab Results 05/22/20 05/22/20 05/22/20 Range/Units 08:34 08:34 08:34 WBC 15.7 H (4.8-10.8) X10*3/uL RBC 3.96 L (4.20-5.50) X10*6/uL Hgb 11.4 L (12.0-16.0) g/dl Hct 35.3 L (37-47) % MCV 89.1 (80-98) fL MCH 28.8 (27.0-33.0) pg MCHC 32.3 (31.0-35.0) g/dl RDW 13.6 (11.0-16.0) % Plt Count 359 D (160-400) X10*3/uL MPV 9.7 (9.4-12.3) fL Immature Gran % (Auto) 0.5 H (0.0-0.4) % Neut % (Auto) 77.3 H (45-73) % Lymph % (Auto) 10.9 L (20-40) % Haskell % (Auto) 10.6 (2-11) % Eos % (Auto) 0.3 (0-4) % Baso % (Auto) 0.4 (0-2) % Lymph # (Auto) 1.7 (1.2-4.9) X10*3/uL Haskell # (Auto) 1.7 H (0.1-1.2) X10*3/uL Eos # (Auto) 0.0 (0.0-0.4) X10*3/uL Baso # (Auto) 0.1 (0.0-0.2) X10*3/uL Abs Immat Gran (auto) 0.08 H (0.00-0.03) X10*3/uL Absolute Neuts (auto) 12.2 H (2.0-8.3) X10*3/uL Absolute Nucleated RBC 0.000 (0.0-0.012) X10*3/uL Nucleated RBC % (auto) 0.0 (0.0-0.2) /100WBC Smear Tech's Comments VERIFIED PT (10.8-13.0) SEC INR (0.9-1.1) Sodium 134 L (135-145) mmol/L Potassium 4.2 (3.3-5.1) mmol/l Chloride 100 (96-108) mmol/L Carbon Dioxide 22 (22-29) mmol/L Anion Gap 16 (12-20) BUN 9 D (9-16) mg/dL Creatinine 0.68 (0.5-1.4) mg/dL Estim Creat Clear Calc 99.7 Estimated GFR > 60 Random Glucose 235 H (60-115) mg/dL Lactic Acid (0.5-2.0) mmol/L Calcium 8.1 L (8.4-10.2) mg/dL Magnesium (1.6-2.6) mg/dL Total Bilirubin (0.0-1.0) mg/dL Direct Bilirubin (0.0-0.5) mg/dL AST (5-31) U/L ALT (0-31) U/L Alkaline Phosphatase (39-117) U/L Troponin I High Sens (<3.5-17.0) ng/L B-Natriuretic Peptide (<100) pg/mL Total Protein (6.5-8.0) g/dL Albumin (3.5-5.0) g/dL COVID-19 ([facility]) Negative (Negative) COVID-19 Clin Com See Note 05/22/20 05/22/20 05/22/20 Range/Units 08:34 08:34 08:34 WBC (4.8-10.8) X10*3/uL RBC (4.20-5.50) X10*6/uL Hgb (12.0-16.0) g/dl Hct (37-47) % MCV (80-98) fL MCH (27.0-33.0) pg MCHC (31.0-35.0) g/dl RDW (11.0-16.0) % Plt Count (160-400) X10*3/uL MPV (9.4-12.3) fL Immature Gran % (Auto) (0.0-0.4) % Neut % (Auto) (45-73) % Lymph % (Auto) (20-40) % Haskell % (Auto) (2-11) % Eos % (Auto) (0-4) % Baso % (Auto) (0-2) % Lymph # (Auto) (1.2-4.9) X10*3/uL Haskell # (Auto) (0.1-1.2) X10*3/uL Eos # (Auto) (0.0-0.4) X10*3/uL Baso # (Auto) (0.0-0.2) X10*3/uL Abs Immat Gran (auto) (0.00-0.03) X10*3/uL Absolute Neuts (auto) (2.0-8.3) X10*3/uL Absolute Nucleated RBC (0.0-0.012) X10*3/uL Nucleated RBC % (auto) (0.0-0.2) /100WBC Smear Tech's Comments PT 17.0 H D (10.8-13.0) SEC INR 1.4 H (0.9-1.1) Sodium (135-145) mmol/L Potassium (3.3-5.1) mmol/l Chloride (96-108) mmol/L Carbon Dioxide (22-29) mmol/L Anion Gap (12-20) BUN (9-16) mg/dL Creatinine (0.5-1.4) mg/dL Estim Creat Clear Calc Estimated GFR Random Glucose (60-115) mg/dL Lactic Acid (0.5-2.0) mmol/L Calcium (8.4-10.2) mg/dL Magnesium 1.4 L* (1.6-2.6) mg/dL Total Bilirubin 0.8 (0.0-1.0) mg/dL Direct Bilirubin 0.4 (0.0-0.5) mg/dL AST 30 (5-31) U/L ALT 53 H (0-31) U/L Alkaline Phosphatase 164 H D (39-117) U/L Troponin I High Sens < 3.5 (<3.5-17.0) ng/L B-Natriuretic Peptide 32 (<100) pg/mL Total Protein 6.3 L (6.5-8.0) g/dL Albumin 3.4 L (3.5-5.0) g/dL COVID-19 ([facility]) (Negative) COVID-19 Clin Com 05/22/20 Range/Units 09:08 WBC (4.8-10.8) X10*3/uL RBC (4.20-5.50) X10*6/uL Hgb (12.0-16.0) g/dl Hct (37-47) % MCV (80-98) fL MCH (27.0-33.0) pg MCHC (31.0-35.0) g/dl RDW (11.0-16.0) % Plt Count (160-400) X10*3/uL MPV (9.4-12.3) fL Immature Gran % (Auto) (0.0-0.4) % Neut % (Auto) (45-73) % Lymph % (Auto) (20-40) % Haskell % (Auto) (2-11) % Eos % (Auto) (0-4) % Baso % (Auto) (0-2) % Lymph # (Auto) (1.2-4.9) X10*3/uL Haskell # (Auto) (0.1-1.2) X10*3/uL Eos # (Auto) (0.0-0.4) X10*3/uL Baso # (Auto) (0.0-0.2) X10*3/uL Abs Immat Gran (auto) (0.00-0.03) X10*3/uL Absolute Neuts (auto) (2.0-8.3) X10*3/uL Absolute Nucleated RBC (0.0-0.012) X10*3/uL Nucleated RBC % (auto) (0.0-0.2) /100WBC Smear Tech's Comments PT (10.8-13.0) SEC INR (0.9-1.1) Sodium (135-145) mmol/L Potassium (3.3-5.1) mmol/l Chloride (96-108) mmol/L Carbon Dioxide (22-29) mmol/L Anion Gap (12-20) BUN (9-16) mg/dL Creatinine (0.5-1.4) mg/dL Estim Creat Clear Calc Estimated GFR Random Glucose (60-115) mg/dL Lactic Acid 1.4 (0.5-2.0) mmol/L Calcium (8.4-10.2) mg/dL Magnesium (1.6-2.6) mg/dL Total Bilirubin (0.0-1.0) mg/dL Direct Bilirubin (0.0-0.5) mg/dL AST (5-31) U/L ALT (0-31) U/L Alkaline Phosphatase (39-117) U/L Troponin I High Sens (<3.5-17.0) ng/L B-Natriuretic Peptide (<100) pg/mL Total Protein (6.5-8.0) g/dL Albumin (3.5-5.0) g/dL COVID-19 ([facility]) (Negative) COVID-19 Clin Com Imaging Data Chest x-ray: Attestation: I personally reviewed and interpreted this imaging study as follows: Radiologist's impression: Moderate cardiomegaly. Left lower lobe retrocardiac opacity likely consolidation and/or atelectasis, new since previous study 04/15/2018. CT scan - chest: Attestation: I personally reviewed and interpreted this imaging study as follows: Radiologist's impression: IMPRESSION: New moderate size pericardial effusion. New bilateral pleural effusions, left greater than right. New left lower and inferior segment lingula lobe atelectasis/consolidation. Findings will be communicated by the [place] work flow surgical coordinator Shanita Dumont. ECG Data Attestation: I personally reviewed and interpreted this ECG as follows: ECG interpretation date: 05/22/20 ECG interpretation time: 08:18 Interpretation: Normal sinus rhythm with ventricular rate of 98 with normal WV interval normal QRS normal QT/QTC. No acute ischemic changes noted. Similar compared to prior on 05/11/2020. Critical Care Time Critical Care Time Critical Care Time: Yes Total Critical Care Time: 60 Attestation: I personally attest to this time spent taking care of the patient Discharge Plan Discharge Clinical Impression: Acute pericardial effusion, HAP (hospital-acquired pneumonia), Hypoxia, Low blood magnesium Sepsis Qualifiers: Sepsis type: sepsis due to unspecified organism Sepsis acute organ dysfunction status: without acute organ dysfunction Qualified Code(s): A41.9 - Sepsis, unspecified organism Prescriptions: No Action metformin 1,000 mg tablet 2 tab PO QAM RF: 0 omeprazole 20 mg capsule,delayed release(DR/EC) 1 cap PO BID RF: 0 clotrimazole 1 % cream 1 applic topical BID RF: 0 irbesartan 300 mg tablet 1 tab PO DAILY RF: 0 Basaglar KwikPen U-100 Insulin 100 unit/mL (3 mL) insulin pen 32 unit subcut BID RF: 0 amlodipine 10 mg tablet 10 mg PO DAILY Qty: 30 RF: 0 atorvastatin [Lipitor] 40 mg tablet 40 mg PO BEDTIME Qty: 30 RF: 0 oxycodone 5 mg tablet 5 mg PO Q6H PRN (Reason: pain (scale score 4-6)) Qty: 14 RF: 0 polyethylene glycol 3350 [Miralax] 17 gram powder in packet 17 g PO DAILY Qty: 14 RF: 0 Trulicity 0.75 mg/0.5 mL pen injector 0.75 mg subcut QWEEK RF: 0
--- NOTE | 2020-05-22 08:53 | PC.NURSE ---
TO AND FROM XRAY W/O INCIDENT. FEELING MUCH BETTER ON O2.
[2020-05-22 09:04] LABS: COVID-19 Test Negative (Negative); IDNOW Serial# 9DD0AD1C
--- NOTE | 2020-05-22 09:04 | CT_ITS ---
EXAMINATION: CT CHEST WITHOUT CONTRAST CLINICAL INFORMATION: Shortness of breath COMPARISON: Previous CTA of the chest April 2020 and chest x-ray from earlier the same day TECHNIQUE: Multidetector volumetric CT imaging of the chest was done. Axial MIP volume rendering provided. Sagittal and coronal reformatted images were obtained. This CT examination was performed using dose optimization techniques as appropriate, variously including the following: *Automated exposure control *Adjustment of mA and/or kV according to patient size (this includes techniques or standardized protocols for targeted exams where dose is matched to indication/reason for exam; i.e. extremities or head) *Use of iterative reconstruction technique DLP: 447 mGy-cm FINDINGS: LUNGS: There is new left lower lobe atelectasis and consolidation. Similar changes are seen in the inferior segment of the lingula. MEDIASTINUM: There is a calcified right thyroid nodule that is stable. There is shotty mediastinal lymphadenopathy. The heart does not appear enlarged. There is a new moderate-sized right pericardial effusion that appears new or increased from 05/10/2020 exam. The heart does not appear enlarged. There is no coronary artery calcification. The thoracic aorta is normal in caliber. PLEURA: There are new small right and moderate left pleural effusions. AXILLA: No lymphadenopathy. UPPER ABDOMEN: The liver may be enlarged. OSSEOUS STRUCTURES: There are degenerative changes of the spine. CT/CT chest wo con IMPRESSION: New moderate size pericardial effusion. New bilateral pleural effusions, left greater than right. New left lower and inferior segment lingula lobe atelectasis/consolidation. Findings will be communicated by the [facility] work flow linux admin Shanita Dumont.
[2020-05-22 09:07] LABS: SLIDE REVIEW VERIFIED
[2020-05-22 09:08] LABS: Anion Gap 16 (12-20); Blood Urea Nitrogen 9 mg/dL (9-16); Calcium 8.1 mg/dL (8.4-10.2); Carbon Dioxide 22 mmol/L (22-29); Chloride 100 mmol/L (96-108); Creatinine Clr Calc Pharmacy 99.7; Estimated Glomerular Filt Rate > 60; Glucose Random 235 mg/dL (60-115); Potassium 4.2 mmol/l (3.3-5.1); Sodium 134 mmol/L (135-145)
[2020-05-22 09:13] LABS: Alanine Aminotransferase 53 U/L (0-31); Albumin Level 3.4 g/dL (3.5-5.0); Alkaline Phosphatase 164 U/L (39-117); Aspartate Amino Transferase 30 U/L (5-31); B Type Natriuretic Peptide 32 pg/mL (<100); Bilirubin Direct 0.4 mg/dL (0.0-0.5); Bilirubin Total 0.8 mg/dL (0.0-1.0); Magnesium 1.4 mg/dL (1.6-2.6); Total Protein 6.3 g/dL (6.5-8.0); Troponin-I High Sensitivity < 3.5 ng/L (<3.5-17.0)
--- NOTE | 2020-05-22 09:28 | PC.NURSE ---
PT WITH SUSPECTED PNEUMONIA. LACTIC AND BC X [address] DRY [address] CHEST. NO CHANGES IN EXAM. COVID NEGATIVE
[2020-05-22 09:43] LABS: Lactic Acid 1.4 mmol/L (0.5-2.0)
[2020-05-22 09:50] VITALS: BP 145/67; PULSE 97; RESP 20; O2SAT 97
[2020-05-22] MEDS: 0.9 % Sodium Chloride 1,000 ML 999 ML IVCONT (10:10)
[2020-05-22] MEDS: Magnesium Sulfate/H2O 2 GM/50 ML PIGGYBACK IV (10:11)
--- NOTE | 2020-05-22 11:30 | CA_ITS ---
Transthoracic Echocardiogram Patient (Last, First, Middle): Madison Jasso D Gender: Female Date of : 1955 Age: 64 Procedure Date: 05/22/2020 Procedure Type: Transthoracic Echocardiogram Location: ER Height: 162.56 cm Weight: 112.04 kg BSA: 2.14 m2 Heart Rate: bpm BP: 145 / 67 mmHg De Icer Installer: Referring MD: Marilu HERNANDEZ Symptoms: pericardial effusion Conclusions: - Moderate to large size pericardial effusion. - Tamponade physiology present. - Findings discussed with medical team that patient will need pericardiocentesis. Findings Left Ventricle Normal left ventricular size and systolic function. The visually estimated ejection fraction is between 60-65%. Diastolic function is indeterminate on the basis of available data. Right Ventricle Normal right ventricular cavity size and systolic function. Venous The inferior vena cava is dilated and does not collapse with inspiration. Pericardium/Pleural There is a moderate pleural effusion. There are echocardiographic findings consistent with tamponade physiology. There is moderate to large circumferential pericardial effusion. There is significant variation in the mitral inflow. The IVC is plethoric without collapse. Prior Study Comparison Significant changes compared to prior study dated: 05/11/2020. Moderate pericardial effusion. Tamponade physiology. Measurements Mitral Valve E'Lateral: 9.25 Diastolic Function E' Laterial: 9.25 Updated in Other Vendor System with Status of Final David Triplett MD electronically signed on 05/22/2020 12:42:03 PM with status of Final
--- NOTE | 2020-05-22 11:30 | PM.IMHP ---
History of Present Illness Date of Service: 05/22/20 <MARY Mckinney - Last Filed: 05/22/20 15:50> Chief Complaint: Shortness of breath shortness of breath <MARY Mckinney Last Filed: 05/22/20 15:50> this is a 64-year-old female who presents to the emergency department with shortness of breath. Patient was admitted from May 10 to May 13 for chest pain and uncontrolled hypertension. She was ruled out for ACS at that time. Her blood pressure medication was uptitrated. Echocardiogram was done and showed grade 1 diastolic dysfunction and trivial pericardial effusion. as part of her workup she also had a CTA which was unremarkable. she did require small amount of oxygen but was able to be weaned off on day of discharge and reports feeling well at the time she went home. She underwent outpatient stress test May 19 which was negative for ischemia. Since then she has had dyspnea on exertion and orthopnea. She denies cough, fever, chills. On arrival in the emergency department today she was hypoxic with oxygen saturation of 88% on room air. Chest CT shows moderate pericardial effusion, bilateral pleural effusions and Left lower lobe atelectasis / consolidation. lab work revealed leukocytosis of 15.7, lactic acid within normal limits. Magnesium also found to be low at 1.4. BNP and troponin both negative. She was treated with IV cefepime and the decision was made to admit her for further management. <MARY Mckinney - Last Filed: 05/22/20 15:50> Review of Systems Review of Systems: Yes all other systems are reviewed and are negative <MARY Mckinney Last Filed: 05/22/20 15:50> Cardiovascular: Cardiovascular: Denies chest pain, Denies palpitations, Reports dyspnea on exertion and Reports orthopnea <MARY Mckinney Last Filed: 05/22/20 15:50> Respiratory: Respiratory: Denies chest congestion, Denies cough, Denies pain on inspiration and Reports dyspnea on exertion <MARY Mckinney Last Filed: 05/22/20 15:50> Gastrointestinal: Gastrointestinal: Denies diarrhea, Denies nausea and Denies vomiting <MARY Mckinney Last Filed: 05/22/20 15:50> Endocrine: Endocrine: Denies palpitations <MARY Mckinney - Last Filed: 05/22/20 15:50> [facility] Medical History: Medical History Asthma Diabetes Diverticulitis Dizziness GERD (gastroesophageal reflux disease) High cholesterol HTN (hypertension) Small bowel obstruction <MARY Mckinney - Last Filed: 05/22/20 15:50> Functional capacity: independent ambulation <MARY Mckinney - Last Filed: 05/22/20 15:50> Family History: Family History Sister Diabetes ESRD (end stage renal disease) on dialysis Father CAD (coronary artery disease) <MARY Mckinney - Last Filed: 05/22/20 15:50> Surgical History: Surgical History H/O exploratory laparotomy History of bilateral knee replacement History of partial colectomy Status post total abdominal hysterectomy <MARY Mckinney - Last Filed: 05/22/20 15:50> Social History: Social History (Updated 05/22/20 @ 11:37 by MARY Mckinney) Alcohol intake: never Smoking Status: Former smoker Cigarettes Per Day: 0 service: No Current occupational status: retired <MARY Mckinney - Last Filed: 05/22/20 15:50> Meds Allergies/Adverse reactions: Allergies Allergy/AdvReac Type Severity Reaction Status Date / Time demerol Allergy Unknown Unknown Uncoded 05/10/20 06:10 lisinopril Allergy Unknown Unknown Uncoded 05/10/20 06:10 <MARY Mckinney - Last Filed: 05/22/20 15:50> Home medications: Home Medications Medication Instructions Recorded Confirmed Type Shruthiaglar ElissaPen U-100 Insulin 32 unit SUBCUT BID 05/10/20 05/22/20 History clotrimazole 1 applic TOPICAL BID 05/10/20 05/22/20 History irbesartan 1 tab PO DAILY 05/10/20 05/22/20 History metformin 2 tab PO QAM 05/10/20 05/22/20 History omeprazole 1 cap PO BID 05/10/20 05/22/20 History dulaglutide [Trulicity] 0.75 mg SUBCUT QWEEK 05/22/20 05/22/20 History <MARY Mckinney - Last Filed: 05/22/20 15:50> Physical Exam Vital Signs and Narrative: Vital Signs: Last Vital Signs Temp 99.0 F 05/22/20 08:08 Pulse 97 05/22/20 09:50 Resp 20 05/22/20 09:50 BP 145/67 H 05/22/20 09:50 Pulse Ox 97 05/22/20 09:50 Body Mass Index 42.4 <MARY Mckinney - Last Filed: 05/22/20 15:50> Const: Nutritional Appearance: overweight <MARY Mckinney Last Filed: 05/22/20 15:50> Orientation/consciousness: patient oriented x3 <MARY Mckinney - Last Filed: 05/22/20 15:50> HENMT: Head: Yes normocephalic and Yes atraumatic <MARY Mckinney - Last Filed: 05/22/20 15:50> Eyes: Sclerae: sclerae normal <MARY Mckinney - Last Filed: 05/22/20 15:50> Chest: Chest palpation & inspection: normal inspection of the chest <MARY Mckinney - Last Filed: 05/22/20 15:50> Resp: Other: becomes short of breath with conversation <MARY Mckinney - Last Filed: 05/22/20 15:50> Effort & Inspection: no use of accessory muscles <MARY Mckinney - Last Filed: 05/22/20 15:50> Auscultation: crackles on the left at the base and diminished lung sounds <MARY Mckinney Last Filed: 05/22/20 15:50> Cardio: Rate: regular rate <MARY Mckinney Last Filed: 05/22/20 15:50> Rhythm: regular rhythm <MARY Mckinney - Last Filed: 05/22/20 15:50> GI: Palpation (GI): Soft to palpation and nontender <MARY Mckinney - Last Filed: 05/22/20 15:50> Skin: General skin exam: no rashes or lesions noted <MARY Mckinney - Last Filed: 05/22/20 15:50> Neuro: General: patient oriented x3 <MARY Mckinney - Last Filed: 05/22/20 15:50> Cranial nerves: Yes CN's II-XII intact bilaterally and Yes Bilaterally intact EOM present <MARY Mckinney - Last Filed: 05/22/20 15:50> Extrem: General: Yes normal to inspection <MARY Mckinney - Last Filed: 05/22/20 15:50> Results Labs CBC and Chem 7: : 05/22/20 08:34 05/22/20 08:34 <MARY Mckinney - Last Filed: 05/22/20 15:50> Labs: Laboratory Results - last 24 hr 05/22/20 05/22/20 05/22/20 08:34 08:34 08:34 MCV 89.1 MCH 28.8 MCHC 32.3 RDW 13.6 Plt Count 359 D MPV 9.7 Immature Gran % (Auto) 0.5 H Neut % (Auto) 77.3 H Lymph % (Auto) 10.9 L [place] % (Auto) 10.6 Eos % (Auto) 0.3 Baso % (Auto) 0.4 Lymph # (Auto) 1.7 [place] # (Auto) 1.7 H Eos # (Auto) 0.0 Baso # (Auto) 0.1 Abs Immat Gran (auto) 0.08 H Absolute Neuts (auto) 12.2 H Absolute Nucleated RBC 0.000 Nucleated RBC % (auto) 0.0 Smear Tech's Comments VERIFIED PT INR Anion Gap 16 Estim Creat Clear Calc 99.7 Estimated GFR > 60 Random Glucose 235 H Lactic Acid Calcium 8.1 L Magnesium Total Bilirubin Direct Bilirubin AST ALT Alkaline Phosphatase Troponin I High Sens B-Natriuretic Peptide Total Protein Albumin COVID-19 ([facility]) Negative COVID-19 Clin Com See Note 11/27/20 11/27/20 11/27/20 08:34 08:34 08:34 MCV MCH MCHC RDW Plt Count MPV Immature Gran % (Auto) Neut % (Auto) Lymph % (Auto) [place] % (Auto) Eos % (Auto) Baso % (Auto) Lymph # (Auto) [place] # (Auto) Eos # (Auto) Baso # (Auto) Abs Immat Gran (auto) Absolute Neuts (auto) Absolute Nucleated RBC Nucleated RBC % (auto) Smear Tech's Comments PT 17.0 H D INR 1.4 H Anion Gap Estim Creat Clear Calc Estimated GFR Random Glucose Lactic Acid Calcium Magnesium 1.4 L* Total Bilirubin 0.8 Direct Bilirubin 0.4 AST 30 ALT 53 H Alkaline Phosphatase 164 H D Troponin I High Sens < 3.5 B-Natriuretic Peptide 32 Total Protein 6.3 L Albumin 3.4 L COVID-19 ([facility]) COVID-19 Clin Com 05/22/20 09:08 MCV MCH MCHC RDW Plt Count MPV Immature Gran % (Auto) Neut % (Auto) Lymph % (Auto) [place] % (Auto) Eos % (Auto) Baso % (Auto) Lymph # (Auto) [place] # (Auto) Eos # (Auto) Baso # (Auto) Abs Immat Gran (auto) Absolute Neuts (auto) Absolute Nucleated RBC Nucleated RBC % (auto) Smear Tech's Comments PT INR Anion Gap Estim Creat Clear Calc Estimated GFR Random Glucose Lactic Acid 1.4 Calcium Magnesium Total Bilirubin Direct Bilirubin AST ALT Alkaline Phosphatase Troponin I High Sens B-Natriuretic Peptide Total Protein Albumin COVID-19 ([facility]) COVID-19 Clin Com <MARY Mckinney - Last Filed: 05/22/20 15:50> Imaging Radiologist's Impressions: Impressions Chest X-Ray 05/22/20 08:16 IMPRESSION: Moderate cardiomegaly. Left lower lobe retrocardiac opacity likely consolidation and/or atelectasis, new since previous study 04/15/2018. Chest CT 05/22/20 09:04 IMPRESSION: New moderate size pericardial effusion. New bilateral pleural effusions, left greater than right. New left lower and inferior segment lingula lobe atelectasis/consolidation. Findings will be communicated by the [employer] work flow field sales associate Shanita Dumont. <MARY Mckinney - Last Filed: 05/22/20 15:50> Assessment and Plan (1) Acute respiratory failure with hypoxia: Status: Acute <MARY Mckinney - Last Filed: 05/22/20 15:50> (2) Diabetes: Status: Acute <MARY Mckinney - Last Filed: 05/22/20 15:50> (3) Acute pericardial effusion: Status: Inactive <MARY Mckinney - Last Filed: 05/22/20 15:50> this is a 64-year-old female with history of diabetes, hypertension, dyslipidemia, recent admission for chest pain/uncontrolled hypertension who presents with 3 day history of shortness of breath found to have pneumonia and pericardial effusion Acute respiratory failure with hypoxia Oxygen saturation 88% on room air Continue supplemental oxygen as needed Sepsis Meet sepsis criteria with leukocytosis, heart rate 97. Lactic acid within normal limits Sepsis focused exam completed ? r/t pna IV abx Possible pna on CT Supplemental oxygen as needed IV abx Follow-up blood cultures Check procalcitonin pericardial effusion echocardiogram done on May 11 showed trivial pericardial effusion will repeat limited echocardiogram to assess size today bilateral pleural effusions ? parapneumonic BNP 35, although echocardiogram shows grade 1 diastolic dysfunction hypo magnesemia given replacement in the ED Repeat in a.m. Diabetes Hold metformin Trulicity will be converted to Lantus hypertension continue Norvasc, formulary equivalent for irbesartan hyperlipidemia continue Lipitor gerd continue omeprazole DVT prophylaxis- Lovenox code status- full code this case was discussed with Dr. Abraham <MARY Mckinney - Last Filed: 05/22/20 15:50>
[2020-05-22] MEDS: cefEPime HCl 2 GM in 0.9 % Sodium Chloride 50 ML IV (11:31)
[2020-05-22 11:57] LABS: Procalcitonin 0.12 ng/mL
[2020-05-22 13:40] VITALS: BP 132/68; PULSE 95; RESP 20; O2SAT 95
--- NOTE | 2020-05-22 13:41 | PC.NURSE ---
PT WILL BE TRANSFERED DUE TO PERICARIAL EFFUSION TAMPONODING HEART. ACUTE SOB WITH ANY EXERTION. COMFORTABLE AT REST.
--- NOTE | 2020-05-22 14:56 | PM.CNCAR ---
History of Present Illness History of Present Illness Date of Service: 05/22/20 Requesting physician: Marilu Hanson Chief complaint: shortness of breath, pericardial effusion Narrative: Pleasant 64-year-old female who is presenting with dyspnea on exertion. She was seen recently for atypical chest pain and was thought to have musculoskeletal chest pain. Subsequent to that she underwent stress testing couple of days ago. She said since the stress test she has been short of breath and has been experiencing orthopnea. She had is mild dizziness but no clear syncope or lightheadedness. She has orthopnea and dyspnea on exertion. With these symptoms she presented to [facility]. Her workup showed leukocytosis and imaging could including CT scan has shown bilateral pleural effusion along with moderate pericardial effusion and left lung infiltrate versus atelectasis. She had chest heaviness a week or 2 ago when she presented to us. She said it was pleuritic chest discomfort and she also had left scapular discomfort. No fevers or chills. No history of hard of hearing issues. Review of Systems Review of Systems: dyspnea, orthopnea Yes all other systems are reviewed and are negative [facility] Past Medical History Medical History Asthma Diabetes Diverticulitis Dizziness GERD (gastroesophageal reflux disease) High cholesterol HTN (hypertension) Small bowel obstruction Functional capacity: independent ambulation Family History Family History Sister Diabetes ESRD (end stage renal disease) on dialysis Father CAD (coronary artery disease) Surgical History Surgical History H/O exploratory laparotomy History of bilateral knee replacement History of partial colectomy Status post total abdominal hysterectomy Social History Social History (Updated 05/22/20 @ 11:37 by MARY Mckinney) Alcohol intake: never Smoking Status: Former smoker Cigarettes Per Day: 0 Use of substances other than those prescribed or required for medical reasons: No Advance Directives: No Advance Directives Information Provided: Yes service: No Current occupational status: retired Meds Allergies Allergy/AdvReac Type Severity Reaction Status Date / Time demerol Allergy Unknown Unknown Uncoded 05/10/20 06:10 lisinopril Allergy Unknown Unknown Uncoded 05/10/20 06:10 Home Medications Medication Instructions Recorded Confirmed Type Rebecca Newman U-100 Insulin 32 unit SUBCUT BID 05/10/20 05/22/20 History clotrimazole 1 applic TOPICAL BID 05/10/20 05/22/20 History irbesartan 1 tab PO DAILY 05/10/20 05/22/20 History metformin 2 tab PO QAM 05/10/20 05/22/20 History omeprazole 1 cap PO BID 05/10/20 05/22/20 History dulaglutide [Trulicity] 0.75 mg SUBCUT QWEEK 05/22/20 05/22/20 History Physical Exam Vital Signs: Vital Signs: Last Vital Signs Temp 99.0 F 05/22/20 08:08 Pulse 95 05/22/20 13:40 Resp 20 05/22/20 13:40 BP 132/68 05/22/20 13:40 Pulse Ox 95 05/22/20 13:40 Body Mass Index 42.4 GENERAL APPEARANCE: in no acute distress, well developed, well nourished. HEENT: unremarkable. HEAD: normocephalic, atraumatic. NECK/THYROID: no carotid bruit, JVD 14-15 cm of water. SKIN: no suspicious lesions, warm and dry. HEART: no murmurs, regular rate and rhythm, S1, S2 normal. LUNGS: Left sided bronchial breath sounds. ABDOMEN: normal, bowel sounds present, soft, nontender, nondistended. EXTREMITIES: no clubbing, cyanosis, or edema. PERIPHERAL PULSES: equal. Radial pulses become feeble with inspiration. NEUROLOGIC: nonfocal, alert and oriented. PSYCH: mood/affect full range. Results Labs and Meds Result diagrams: 05/22/20 08:34 05/22/20 08:34 Lab results: Laboratory Results - last 24 hr 05/22/20 05/22/20 05/22/20 08:34 08:34 08:34 WBC 15.7 H RBC 3.96 L Hgb 11.4 L Hct 35.3 L MCV 89.1 MCH 28.8 MCHC 32.3 RDW 13.6 Plt Count 359 D MPV 9.7 Immature Gran % (Auto) 0.5 H Neut % (Auto) 77.3 H Lymph % (Auto) 10.9 L [place] % (Auto) 10.6 Eos % (Auto) 0.3 Baso % (Auto) 0.4 Lymph # (Auto) 1.7 [place] # (Auto) 1.7 H Eos # (Auto) 0.0 Baso # (Auto) 0.1 Abs Immat Gran (auto) 0.08 H Absolute Neuts (auto) 12.2 H Absolute Nucleated RBC 0.000 Nucleated RBC % (auto) 0.0 Smear Tech's Comments VERIFIED PT INR Sodium 134 L Potassium 4.2 Chloride 100 Carbon Dioxide 22 Anion Gap 16 BUN 9 D Creatinine 0.68 Estim Creat Clear Calc 99.7 Estimated GFR > 60 Random Glucose 235 H Lactic Acid Calcium 8.1 L Magnesium Total Bilirubin Direct Bilirubin AST ALT Alkaline Phosphatase Troponin I High Sens B-Natriuretic Peptide Total Protein Albumin Procalcitonin COVID-19 ([facility]) Negative COVID-19 Clin Com See Note 05/22/20 05/22/20 05/22/20 08:34 08:34 08:34 WBC RBC Hgb Hct MCV MCH MCHC RDW Plt Count MPV Immature Gran % (Auto) Neut % (Auto) Lymph % (Auto) [place] % (Auto) Eos % (Auto) Baso % (Auto) Lymph # (Auto) [place] # (Auto) Eos # (Auto) Baso # (Auto) Abs Immat Gran (auto) Absolute Neuts (auto) Absolute Nucleated RBC Nucleated RBC % (auto) Smear Tech's Comments PT 17.0 H D INR 1.4 H Sodium Potassium Chloride Carbon Dioxide Anion Gap BUN Creatinine Estim Creat Clear Calc Estimated GFR Random Glucose Lactic Acid Calcium Magnesium 1.4 L* Total Bilirubin 0.8 Direct Bilirubin 0.4 AST 30 ALT 53 H Alkaline Phosphatase 164 H D Troponin I High Sens < 3.5 B-Natriuretic Peptide 32 Total Protein 6.3 L Albumin 3.4 L Procalcitonin COVID-19 ([facility]) COVID-19 Clin Com 05/22/20 05/22/20 09:08 09:08 WBC RBC Hgb Hct MCV MCH MCHC RDW Plt Count MPV Immature Gran % (Auto) Neut % (Auto) Lymph % (Auto) [place] % (Auto) Eos % (Auto) Baso % (Auto) Lymph # (Auto) [place] # (Auto) Eos # (Auto) Baso # (Auto) Abs Immat Gran (auto) Absolute Neuts (auto) Absolute Nucleated RBC Nucleated RBC % (auto) Smear Tech's Comments PT INR Sodium Potassium Chloride Carbon Dioxide Anion Gap BUN Creatinine Estim Creat Clear Calc Estimated GFR Random Glucose Lactic Acid 1.4 Calcium Magnesium Total Bilirubin Direct Bilirubin AST ALT Alkaline Phosphatase Troponin I High Sens B-Natriuretic Peptide Total Protein Albumin Procalcitonin 0.12 COVID-19 ([facility]) COVID-19 Clin Com Assessment and Plan (1) Pericardial effusion with cardiac tamponade: Status: Acute pleasant 64-year-old female who is presenting with dyspnea and orthopnea. She has bilateral pleural effusions and left lung infiltrate along with [id number] sized pericardial effusion with tamponade physiology. she is not hypotensive right now. I would not diurese her for the pleural effusions right now. I think she should have a diagnostic and therapeutic pericardiocentesis. If she has hypotension then give her IV fluid bolus. She presented last week with the sharp chest pain which was pleuritic in nature. I think she had pericarditis and now we are seeing pericardial effusion due to inflammation. I think she should be started on colchicine. Due to left lung infiltrate and effusion I thin we should culture and do g stain of the pericardial fluid also. on her echocardiogram she has a septal bounce and clear evidence of ventricular interdependence with respiration. 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 Once she has been tapped then I will diurese her and continue the colchicine. we will follow along with you. Thank you for allowing me to participate in the care of your patient. Please feel free to contact me if you have any questions.
[2020-05-22 15:21] VITALS: BP 129/93; PULSE 94; RESP 22; TEMP 37.3; O2SAT 97
== END 2020-05-22 15:45 | disposition short-term general hospital (02) ==
LOC: HO.ED 08:18 → HO.IMC 14:29
PROVIDERS: Physician Assistant Medical; Emergency Provider Emergency Medicine Emergency Medical Services; PCP Internal Medicine
DX: I31.3 Pericardial effusion (noninflammatory) (principal); A41.9 Sepsis, unspecified organism; J18.9 Pneumonia, unspecified organism; Y95 Nosocomial condition; J96.01 Acute respiratory failure with hypoxia; M79.89 Other specified soft tissue disorders; E11.9 Type 2 diabetes mellitus without complications; F17.200 Nicotine dependence, unspecified, uncomplicated; Z20.828 Contact with and (suspected) exposure to other viral communicable diseases; Z71.6 Tobacco abuse counseling; Z79.899 Other long term (current) drug therapy
CPT/HCPCS: 36415; 71046; 71250; 80048; 80076; 83605; 83735; 83880; 84145; 84484; 85025; 85610; 87040; 87635; 93005; 93308; 96365; 96366; 96375; 99285; 99291; J0692; J3475

== ENCOUNTER 2021-11-26 09:52 | Outpatient (REF) | payer MEDICARE, SELFPAY ==
--- NOTE | ~2021-11-26 | XR_ITS ---
EXAMINATION: XR FOOT, LEFT CLINICAL INFORMATION: Foot pain COMPARISON: None TECHNIQUE: AP, lateral, and oblique views of the left foot. FINDINGS: No fracture or dislocation. Alignment is anatomic. Joint spaces are maintained. The soft tissues appear unremarkable. Moderate hypertrophic spurring of the plantar aponeurosis and Achilles insertion to the calcaneus. Os naviculare. XR/XR foot LT min 3V IMPRESSION: No acute abnormality. Heel spurs.
== END 2021-11-26 09:53 | disposition home or self-care (01) ==
LOC: HO.HMGCX 09:52
PROVIDERS: PCP Internal Medicine; Visit Provider Nurse Practitioner Acute Care
DX: M79.672 Pain in left foot (principal)
CPT/HCPCS: 73630

== ENCOUNTER 2022-08-10 12:57 | Outpatient (REF) | payer MEDICARE, SELFPAY ==
--- NOTE | ~2022-08-10 | XR_ITS ---
EXAMINATION: XR HAND, LEFT CLINICAL INFORMATION: Left hand contusion. COMPARISON: None TECHNIQUE: PA, lateral, and oblique views of the left hand. An indicator arrow points to the fifth metacarpal. FINDINGS: Minimal distal interphalangeal degenerative joint changes are seen. There is no acute fracture or dislocation. A small corticated round density seen overlying the volar soft tissues superficial to the fifth metacarpal. The carpal bones are normally aligned. The distal radius and ulna are intact. XR/XR hand LT min 3V IMPRESSION: 1. Minimal distal interphalangeal osteoarthritis. 2. Mild soft tissue swelling. No overt fracture. Typically, the fifth metacarpal appears intact. Tiny round osseous density overlying the volar soft tissues demonstrate benign features and does not appear acute and overall, but the exact origin cannot be determined.
== END 2022-08-10 12:58 | disposition home or self-care (01) ==
LOC: HO.HMGCX 12:57
PROVIDERS: Visit Provider Internal Medicine
DX: S60.222A Contusion of left hand, initial encounter (principal)
CPT/HCPCS: 73130

== ENCOUNTER 2022-09-15 23:55 | Emergency (ER) | payer MEDICARE, SELFPAY ==
--- NOTE | ~2022-09-15 | CT_ITS ---
EXAMINATION: CT ANGIOGRAM OF THE CHEST WITH AND WITHOUT CONTRAST (CT PULMONARY ANGIOGRAM FOR PE) CLINICAL INFORMATION: Reason for Exam Left-sided chest pain with shortness of breath COMPARISON: 05/22/2020 TECHNIQUE: Prior to contrast administration, noncontrast localization images were obtained. Subsequently, multidetector volumetric imaging was performed from the thoracic inlet to below the diaphragms following the administration of 65 mL Omnipaque 350 intravenous contrast. No contrast reaction reported Sagittal, coronal, and MIP oblique sagittal reformatted images were obtained on the CT workstation, uploaded to PACS, and reviewed. This CT examination was performed using dose optimization techniques as appropriate, variously including the following: *Automated exposure control *Adjustment of mA and/or kV according to patient size (this includes techniques or standardized protocols for targeted exams where dose is matched to indication/reason for exam; i.e. extremities or head) *Use of iterative reconstruction technique Total exam dose-length product 464 mGy-cm FINDINGS: QUALITY OF STUDY/CONTRAST BOLUS: Satisfactory. PULMONARY ARTERIES: No central or segmental pulmonary emboli. THORACIC AORTA: No aneurysm or dissection. LUNG: No focal consolidation, nodules or masses. The central airways are patent. PLEURA: No pleural effusion or pneumothorax. MEDIASTINUM: Normal heart size. No pericardial effusion. No hilar or mediastinal lymphadenopathy. Calcified nodule in the right lobe of the thyroid gland measures 1.8 cm. No change from prior. No specific follow-up suggested. No evidence of septal bowing or right heart strain. CORONARY ARTERY CALCIFICATION: None visualized on this study. CHEST WALL/AXILLA: No axillary or internal mammary lymphadenopathy. OSSEOUS STRUCTURES: No acute or suspicious osseous abnormality. Degenerative changes throughout the spine. UPPER ABDOMEN: Partially visualized simple cyst at the upper pole of the left kidney. No specific follow-up recommended. No reflux of contrast into the hepatic veins to suggest elevated right heart pressures. CT/CT angio chest PE protocol IMPRESSION: No pulmonary embolism or other acute intrathoracic abnormality. VTE: negative
--- NOTE | 2022-09-16 | ECG_ITS ---
Test Reason : CHEST PAIN Blood Pressure : / mmHG Vent. Rate : 104 BPM Atrial Rate : 104 BPM P-R Int : 160 ms QRS Dur : 084 ms QT Int : 336 ms P-R-T Axes : 028 -37 034 degrees QTc Int : 441 ms Sinus tachycardia Left axis deviation Pulmonary disease pattern Abnormal ECG When compared with ECG of 22-MAY-2020 08:18, No significant change was found Referred By: Generic ED Physician Electronically Signed By:MARIELA DUBON MD
[2022-09-16 00:05] VITALS: BP 125/56; BP 132/92; PULSE 102; PULSE 104; RESP 18; TEMP 37.9; O2SAT 94; O2SAT 97; BMI 40.1
--- NOTE | 2022-09-16 00:13 | ED.BACK ---
HPI - Back Pain/Injury General Chief Complaint: Chest Pain Stated Complaint: Back pain Time Seen by Provider: 09/16/22 00:12 Source: patient Mode of arrival: ambulatory Limitations: no limitations History of Present Illness HPI Narrative: Patient history of chronic low back pain, history of pericarditis with pericardial effusion and pleural effusion in 05/15 comes here for new upper back pain radiating to the front since yesterday a.m. when she woke up. Pain is getting worse with increased shortness of breath facially on ambulation pain is reproducible in the upper back sharp in character lasting for few minutes no relation with breathing no nausea no vomiting no abdominal pain Related Data Home Medications Medication Instructions Recorded Confirmed clotrimazole 1 % topical cream 1 applic topical BID 05/10/20 11/26/21 insulin glargine 100 unit/mL (3 32 unit subcut BID 05/10/20 11/26/21 mL) subcutaneous pen (Basaglar KwikPen U-100 Insulin) irbesartan 300 mg tablet 1 tab PO DAILY 05/10/20 11/26/21 metformin 1,000 mg tablet 2 tab PO QAM 05/10/20 11/26/21 omeprazole 20 mg capsule,delayed 1 cap PO BID 05/10/20 11/26/21 release dulaglutide 0.75 mg/0.5 mL 0.75 mg subcut QWEEK 05/22/20 11/26/21 subcutaneous pen injector (Trulicity) albuterol sulfate 90 mcg/actuation 2 puff inhalation QID 11/26/21 11/26/21 aerosol inhaler (ProAir HFA) blood sugar diagnostic (FreeStyle #10 ea 11/26/21 11/26/21 Lite Strips) flunisolide 29 mcg (0.025 %) nasal mcg intranasal 11/26/21 11/26/21 spray ketoconazole 2 % cream-miconazole See Rx Instructions topical 11/26/21 11/26/21 2 % tincture .COMPLEX meclizine 25 mg tablet 25 mg PO DAILY PRN 11/26/21 11/26/21 methocarbamol 500 mg tablet 500 mg PO .prn 11/26/21 11/26/21 pen needle, diabetic 29 gauge x #100 ea 11/26/21 11/26/21/ (BD Ultra-Fine Original Pen Needle) Previous Rx's Medication Instructions Recorded amlodipine 10 mg tablet 10 mg PO DAILY #30 tabs 05/12/20 atorvastatin 40 mg tablet (Lipitor) 40 mg PO BEDTIME #30 tabs 05/12/20 polyethylene glycol 3350 17 gram 17 g PO DAILY #14 ea 05/12/20 oral powder packet (Miralax) meloxicam 15 mg tablet 15 mg PO DAILY #14 tabs 08/10/22 tramadol 50 mg tablet 50 mg PO Q6H PRN pain #20 tabs 09/16/22 Allergies Allergy/AdvReac Type Severity Reaction Status Date / Time diclofenac AdvReac Headache Verified 09/16/22 01:16 demerol Allergy Unknown Unknown Uncoded 09/16/22 01:15 lisinopril Allergy Unknown Unknown Uncoded 09/16/22 01:15 Review of Systems Review of Systems: Yes all other systems are reviewed and are negative [facility] Past Medical History Medical History Asthma Diabetes Diverticulitis Dizziness GERD (gastroesophageal reflux disease) High cholesterol HTN (hypertension) Small bowel obstruction Surgical History H/O exploratory laparotomy History of bilateral knee replacement History of partial colectomy Status post total abdominal hysterectomy Family History Family History Sister Diabetes ESRD (end stage renal disease) on dialysis Father CAD (coronary artery disease) Social History Social History Alcohol intake: never Cigarettes Per Day: 0 Smoked in Last 30 Days: No Use of substances other than those prescribed or required for medical reasons: No Advance Directives: No Advance Directives Information Provided: No service: No Current occupational status: retired Physical Exam Vital Signs: Vital Signs: Last Vital Signs Temp 99.1 F 09/16/22 03:43 Pulse 89 09/16/22 03:43 Resp 15 09/16/22 03:43 BP 131/57 L 09/16/22 03:43 Pulse Ox 95 09/16/22 03:43 O2 Del Method Room Air 09/16/22 03:43 BMI result Body Mass Index 40.1 Appearance: Alert. Oriented X3. Mild discomfort Eyes: PERRLA, No Nystagmus ENT: Pharynx normal. Oral Mucosa moist Neck: Normal inspection. Neck supple. CVS: Normal heart rate and rhythm. Pulses normal. Respiratory: No respiratory distress. Equal air entry bilateral, no wheezing/rales/rhonchi diffuse tenderness in upper back area no deformity Abdomen: Soft and nontender. Bowel sounds are present, no mass palpable, no CVA tenderness Skin: Skin warm and dry. Normal skin color. Normal skin turgor. Extremities: No lower extremity edema. No calf tenderness Neuro: Oriented X 3. No motor deficit. Medications Administered Discontinued Medications Generic Name Dose Route Start Last Admin Trade Name Freq PRN Reason Stop Dose Admin Iohexol 65 ml 09/16/22 01:51 09/16/22 01:53 Iohexol 350 Mg/Ml 100 Ml Infus..Btl IV 09/16/22 01:52 65 ml ONCE ONE Administration Ketorolac Tromethamine 30 mg 09/16/22 03:36 09/16/22 04:15 Ketorolac Tromethamine 30 Mg/Ml Vial IVPUSH 09/16/22 03:37 30 mg ONCE ONE Administration Morphine Sulfate 4 mg 09/16/22 00:39 09/16/22 01:18 Morphine Sulfate 4 Mg/Ml Cartridge IVPUSH 09/16/22 00:40 4 mg ONCE ONE Administration Protocol Ondansetron HCl 4 mg 09/16/22 00:39 09/16/22 01:17 Ondansetron Hcl 4 Mg/2 Ml Vial IVPUSH 09/16/22 00:40 4 mg ONCE ONE Administration Prochlorperazine Edisylate 10 mg 09/16/22 03:36 09/16/22 04:15 Prochlorperazine Edisylate 10 Mg/2 Ml Vial IVPUSH 09/16/22 03:37 10 mg ONCE ONE Administration Medical Decision Making Medical Decision Making [facility] Narrative: Patient has upper back pain reproducible by palpation diffuse with history of fibromyalgia CTA chest done to rule out PE/pericardial effusion which was negative no significant bony changes. Negative high sensitive troponin patient felt better after pain medication will discharge patient home on tramadol advised to follow with PCP Differential Diagnosis Pulmonary embolism/compression fracture/pneumonia/pericardial effusion/pleural effusion/ACS Lab Data [facility] Lab Attestation statement: I reviewed the patient's lab results. 09/16/22 00:21 09/16/22 00:21 Labs: Lab Results 09/16/22 09/16/22 09/16/22 Range/Units 00:21 00:21 00:21 WBC 11.7 H (4.8-10.8) X10*3/uL RBC 4.72 (4.20-5.50) X10*6/uL Hgb 13.5 (12.0-16.0) g/dl Hct 40.7 (37.0-47.0) % MCV 86.2 (80.0-98.0) fL MCH 28.6 (27.0-33.0) pg MCHC 33.2 (31.0-35.0) g/dl RDW 13.7 (11.0-16.0) % Plt Count 247 (160-400) X10*3/uL MPV 10.4 (9.4-12.3) fL Immature Gran % (Auto) 0.3 (0.0-0.4) % Neut % (Auto) 80.2 H (45-73) % Lymph % (Auto) 10.8 L (20-40) % [place] % (Auto) 7.5 (2-11) % Eos % (Auto) 0.9 (0-4) % Baso % (Auto) 0.3 (0-2) % Lymph # (Auto) 1.3 (1.2-4.9) X10*3/uL [place] # (Auto) 0.9 (0.1-1.2) X10*3/uL Eos # (Auto) 0.1 (0.0-0.4) X10*3/uL Baso # (Auto) 0.0 (0.0-0.2) X10*3/uL Abs Immat Gran (auto) 0.04 H (0.00-0.03) X10*3/uL Absolute Neuts (auto) 9.4 H (2.0-8.3) x10*3/uL Absolute Nucleated RBC 0.000 (0.0-0.012) X10*3/uL Nucleated RBC % (auto) 0.0 (0.0-0.2) /100WBC PT (10.0-13.1) SEC INR (0.9-1.1) APTT (26.0-36.4) SEC Sodium 139 (135-145) mmol/L Potassium 4.5 (3.3-5.1) mmol/L Chloride 105 (96-108) mmol/L Carbon Dioxide 21 L (22-29) mmol/L Anion Gap 18 (12-20) BUN 16 (9-16) mg/dL Creatinine 0.78 (0.5-1.4) mg/dL Estim Creat Clear Calc 82.0 Estimated GFR > 60 Random Glucose 144 H (60-115) mg/dL Calcium 8.7 D (8.4-10.2) mg/dL Total Bilirubin 0.4 (0.0-1.0) mg/dL AST 14 (5-31) U/L ALT 17 (0-31) U/L Alkaline Phosphatase 91 (39-117) U/L Troponin I High Sens < 3.5 (<3.5-17.0) ng/L Total Protein 6.1 L (6.5-8.0) g/dL Albumin 3.7 (3.5-5.0) g/dL COVID-19 ([facility]) (Negative) COVID-19 Clin Com Influenza Type A ([facility]) (Negative) Influenza Type B ([facility]) (Negative) Influenza A & B Note 09/16/22 09/16/22 09/16/22 Range/Units 00:21 00:21 00:48 WBC (4.8-10.8) X10*3/uL RBC (4.20-5.50) X10*6/uL Hgb (12.0-16.0) g/dl Hct (37.0-47.0) % MCV (80.0-98.0) fL MCH (27.0-33.0) pg MCHC (31.0-35.0) g/dl RDW (11.0-16.0) % Plt Count (160-400) X10*3/uL MPV (9.4-12.3) fL Immature Gran % (Auto) (0.0-0.4) % Neut % (Auto) (45-73) % Lymph % (Auto) (20-40) % [place] % (Auto) (2-11) % Eos % (Auto) (0-4) % Baso % (Auto) (0-2) % Lymph # (Auto) (1.2-4.9) X10*3/uL [place] # (Auto) (0.1-1.2) X10*3/uL Eos # (Auto) (0.0-0.4) X10*3/uL Baso # (Auto) (0.0-0.2) X10*3/uL Abs Immat Gran (auto) (0.00-0.03) X10*3/uL Absolute Neuts (auto) (2.0-8.3) x10*3/uL Absolute Nucleated RBC (0.0-0.012) X10*3/uL Nucleated RBC % (auto) (0.0-0.2) /100WBC PT (10.0-13.1) SEC INR (0.9-1.1) APTT 29.4 (26.0-36.4) SEC Sodium (135-145) mmol/L Potassium (3.3-5.1) mmol/L Chloride (96-108) mmol/L Carbon Dioxide (22-29) mmol/L Anion Gap (12-20) BUN (9-16) mg/dL Creatinine (0.5-1.4) mg/dL Estim Creat Clear Calc Estimated GFR Random Glucose (60-115) mg/dL Calcium (8.4-10.2) mg/dL Total Bilirubin (0.0-1.0) mg/dL AST (5-31) U/L ALT (0-31) U/L Alkaline Phosphatase (39-117) U/L Troponin I High Sens (<3.5-17.0) ng/L Total Protein (6.5-8.0) g/dL Albumin (3.5-5.0) g/dL COVID-19 ([facility]) Negative (Negative) COVID-19 Clin Com See Note Influenza Type A ([facility]IS[facility]) Negative (Negative) Influenza Type B ([facility]) Negative (Negative) Influenza A & B Note See Note 09/16/22 Range/Units 00:48 WBC (4.8-10.8) X10*3/uL RBC (4.20-5.50) X10*6/uL Hgb (12.0-16.0) g/dl Hct (37.0-47.0) % MCV (80.0-98.0) fL MCH (27.0-33.0) pg MCHC (31.0-35.0) g/dl RDW (11.0-16.0) % Plt Count (160-400) X10*3/uL MPV (9.4-12.3) fL Immature Gran % (Auto) (0.0-0.4) % Neut % (Auto) (45-73) % Lymph % (Auto) (20-40) % [place] % (Auto) (2-11) % Eos % (Auto) (0-4) % Baso % (Auto) (0-2) % Lymph # (Auto) (1.2-4.9) X10*3/uL [place] # (Auto) (0.1-1.2) X10*3/uL Eos # (Auto) (0.0-0.4) X10*3/uL Baso # (Auto) (0.0-0.2) X10*3/uL Abs Immat Gran (auto) (0.00-0.03) X10*3/uL Absolute Neuts (auto) (2.0-8.3) x10*3/uL Absolute Nucleated RBC (0.0-0.012) X10*3/uL Nucleated RBC % (auto) (0.0-0.2) /100WBC PT 12.0 (10.0-13.1) SEC INR 1.0 (0.9-1.1) APTT (26.0-36.4) SEC Sodium (135-145) mmol/L Potassium (3.3-5.1) mmol/L Chloride (96-108) mmol/L Carbon Dioxide (22-29) mmol/L Anion Gap (12-20) BUN (9-16) mg/dL Creatinine (0.5-1.4) mg/dL Estim Creat Clear Calc Estimated GFR Random Glucose (60-115) mg/dL Calcium (8.4-10.2) mg/dL Total Bilirubin (0.0-1.0) mg/dL AST (5-31) U/L ALT (0-31) U/L Alkaline Phosphatase (39-117) U/L Troponin I High Sens (<3.5-17.0) ng/L Total Protein (6.5-8.0) g/dL Albumin (3.5-5.0) g/dL COVID-19 ([facility]) (Negative) COVID-19 Clin Com Influenza Type A ([facility]) (Negative) Influenza Type B ([facility]) (Negative) Influenza A & B Note Discharge Plan Discharge Clinical Impression: Musculoskeletal back pain, Fibromyalgia Patient Disposition: Home, Self-Care Instructions: Fibromyalgia (ED), Musculoskeletal Pain (ED) Additional Instructions: Take pain medication as prescribed continue your muscle relaxer Follow with PCP for further evaluate Prescriptions: New tramadol 50 mg tablet 50 mg PO Q6H PRN (Reason: pain) Qty: 20 0RF No Action metformin 1,000 mg tablet 2 tab PO QAM omeprazole 20 mg capsule,delayed release(DR/EC) 1 cap PO BID clotrimazole 1 % cream 1 applic topical BID irbesartan 300 mg tablet 1 tab PO DAILY Basaglar KwikPen U-100 Insulin 100 unit/mL (3 mL) insulin pen 32 unit subcut BID amlodipine 10 mg tablet 10 mg PO DAILY Qty: 30 0RF atorvastatin [Lipitor] 40 mg tablet 40 mg PO BEDTIME Qty: 30 0RF polyethylene glycol 3350 [Miralax] 17 gram powder in packet 17 g PO DAILY Qty: 14 0RF Trulicity 0.75 mg/0.5 mL pen injector 0.75 mg subcut QWEEK albuterol sulfate [ProAir HFA] 90 mcg/actuation HFA aerosol inhaler 2 puff inhalation QID ketoconazole-miconazole 2-2 % kit, cream and solution See Rx Instructions topical .COMPLEX Rx Instructions: apply KETOCONAZOLE once or twice daily; apply MICONAZOLE once or twice daily topical flunisolide 29 mcg (0.025 %) spray,non-aerosol intranasal (DME) FreeStyle Lite Strips Strip See Rx Instructions Not Applicable TID Qty: 10 Rx Instructions: As directed (DME) pen needle, diabetic [BD Ultra-Fine Orig Pen Needle] 29 gauge x 1/2 needle See Rx Instructions .ROUTE .MEDSUPPLY Qty: 100 Rx Instructions: As directed meclizine 25 mg tablet 25 mg PO DAILY PRN methocarbamol 500 mg tablet 500 mg PO .prn meloxicam 15 mg tablet 15 mg PO DAILY Qty: 14 0RF
[2022-09-16 00:25] LABS: MANUAL DIFF FLAG NO
[2022-09-16 00:26] LABS: Basophils Percent Auto 0.3 % (0-2); Eosinophils Absolute Auto 0.1 X10*3/uL (0.0-0.4); Eosinophils Percent Auto 0.9 % (0-4); Hematocrit 40.7 % (37.0-47.0); Hemoglobin 13.5 g/dl (12.0-16.0); Imm Gran Abs Auto 0.04 X10*3/uL (0.00-0.03); Imm Gran Pct Auto 0.3 % (0.0-0.4); Lymphocytes Absolute Auto 1.3 X10*3/uL (1.2-4.9); Lymphocytes Percent Auto 10.8 % (20-40); Mean Corpuscular HGB Conc 33.2 g/dl (31.0-35.0); Mean Corpuscular Hemoglobin 28.6 pg (27.0-33.0); Mean Corpuscular Volume 86.2 fL (80.0-98.0); Mean Platelet Volume 10.4 fL (9.4-12.3); Monocytes Absolute Auto 0.9 X10*3/uL (0.1-1.2); Monocytes Percent Auto 7.5 % (2-11); Neutrophils Absolute Auto 9.4 x10*3/uL (2.0-8.3); Neutrophils Percent Auto 80.2 % (45-73); Platelet Count 247 X10*3/uL (160-400); Red Blood Count 4.72 X10*6/uL (4.20-5.50); Red Cell Distribution Width 13.7 % (11.0-16.0); White Blood Count 11.7 X10*3/uL (4.8-10.8)
[2022-09-16 00:42] LABS: Alanine Aminotransferase 17 U/L (0-31); Albumin Level 3.7 g/dL (3.5-5.0); Alkaline Phosphatase 91 U/L (39-117); Anion Gap 18 (12-20); Aspartate Amino Transferase 14 U/L (5-31); Bilirubin Total 0.4 mg/dL (0.0-1.0); Blood Urea Nitrogen 16 mg/dL (9-16); Calcium 8.7 mg/dL (8.4-10.2); Carbon Dioxide 21 mmol/L (22-29); Chloride 105 mmol/L (96-108); Estimated Glomerular Filt Rate > 60; Glucose Random 144 mg/dL (60-115); Potassium 4.5 mmol/L (3.3-5.1); Sodium 139 mmol/L (135-145); Total Protein 6.1 g/dL (6.5-8.0)
[2022-09-16 00:43] LABS: COVID-19 Test Negative (Negative); IDNOW Serial# 08D9AD1C; IDNOW Serial# BCCEAD1C; Influenza A Negative (Negative); Influenza B2 Negative (Negative)
[2022-09-16 00:51] LABS: Troponin-I High Sensitivity < 3.5 ng/L (<3.5-17.0)
[2022-09-16 01:01] LABS: Partial Thromboplastin Time 29.4 SEC (26.0-36.4)
[2022-09-16] MEDS: ondansetron HCL 4 MG/2 ML VIAL IVPUSH (01:17)
[2022-09-16 01:18] VITALS: RESP 14
[2022-09-16] MEDS: Morphine Sulfate 4 MG/ML CARTRIDGE IVPUSH (01:18)
[2022-09-16] MEDS: iohexoL 350 MG/ML 100 ML INFUS..BTL 65 ML IV (01:53)
[2022-09-16 03:43] VITALS: BP 131/57; PULSE 89; RESP 15; TEMP 37.3; O2SAT 95
[2022-09-16] MEDS: Ketorolac Tromethamine 30 MG/ML VIAL IVPUSH (04:15)
[2022-09-16] MEDS: Prochlorperazine Edisylate 10 MG/2 ML VIAL IVPUSH (04:15)
[2022-09-16 04:44] VITALS: PULSE 80; RESP 18
--- NOTE | 2022-09-16 05:00 | PC.NURSE ---
Pt A&Ox4, reports 8/10 sharp, intermittent, increasing pain to upper back, nausea, pain to epigastric area radiating to left side of chest x 2 days. EKG obtained and reviewed by provider, placed on cardiac care nurse, sinus tach on monitor ,HR 104, blood work collected and sent to lab.
== END 2022-09-16 05:05 | disposition home or self-care (01) ==
PROVIDERS: Emergency Provider Internal Medicine
DX: R07.89 Other chest pain (principal); M54.50 Low back pain, unspecified; M79.7 Fibromyalgia; Z20.822 Contact with and (suspected) exposure to COVID-19; Z20.828 Contact with and (suspected) exposure to other viral communicable diseases; Z79.899 Other long term (current) drug therapy
CPT/HCPCS: 36415; 71275; 80053; 84484; 85025; 85610; 85730; 87502; 87635; 93005; 96374; 96375; 99284; 99285; J1885; J2270; J2405; Q9967

== ENCOUNTER 2022-10-13 22:07 | Emergency (ER) | payer MEDICARE, SELFPAY ==
--- NOTE | ~2022-10-13 | CT_ITS ---
EXAMINATION: CT ABDOMEN AND PELVIS WITHOUT CONTRAST CLINICAL INFORMATION: Left flank pain. COMPARISON: CT abdomen/pelvis 04/15/2018. TECHNIQUE: Multidetector volumetric imaging was performed from the superior aspect of the liver through the pubic symphysis. Sagittal and coronal reformatted images were obtained on the technologist's workstation. This CT examination was performed using dose optimization techniques as appropriate, variously including the following: *Automated exposure control *Adjustment of mA and/or kV according to patient size (this includes techniques or standardized protocols for targeted exams where dose is matched to indication/reason for exam; i.e. extremities or head) *Use of iterative reconstruction technique DLP: 1030 mGy-cm FINDINGS: LUNG BASES: No focal consolidation or pleural effusion. LIVER, GALLBLADDER, AND BILIARY TREE: The liver is enlarged measuring 22 cm craniocaudally and demonstrates decreased attenuation of the parenchyma most suggestive of hepatic steatosis. No focal liver lesions in this limited noncontrast examination. No evidence of calcified gallbladder calculi nor findings this is PANCREAS: Limited noncontrast examination, unremarkable. SPLEEN: Limited noncontrast examination, unremarkable. ADRENAL GLANDS: No adrenal mass. KIDNEYS AND URETERS: No nephrolithiasis or hydronephrosis. Too small to characterize cortical hypodensity in the upper left kidney, statistically favoring to represent a simple cyst for no which imaging follow-up is recommended. No significant perinephric fat stranding. BLADDER: Unremarkable. GASTROINTESTINAL TRACT: Equivocal gastric wall thickening. Fecalization of the small bowel. Moderate colonic stool burden. Colonic diverticulosis without significant pericolonic inflammatory changes to suspect acute diverticulitis. No evidence of bowel obstruction. Although the appendix is not confidentially identified, there are no significant regional inflammatory changes to suspect acute appendicitis. ABDOMINAL WALL: Midline surgical scar. No significant hernia. LYMPH NODES: Multiple surgical clips in the left hemipelvis. No pathologically enlarged lymph nodes by CT short axis size criteria. VASCULAR: Atherosclerotic disease. Abdominal aorta is normal in caliber. PELVIC VISCERA: Hysterectomy. Stable ovarian size and positioning compared to 04/15/2018. OSSEOUS STRUCTURES: No acute or aggressive appearing osseous abnormalities. CT/CT abdomen pelvis wo IV con IMPRESSION: 1. No nephrolithiasis or hydronephrosis. 2. Hepatomegaly and hepatic steatosis. 3. Fecalization of the small bowel and moderate colonic stool burden suggesting slow transit and constipation. 4. Equivocal gastric wall thickening, correlate clinically for gastritis. 5. Diverticulosis but no evidence of acute diverticulitis.
[2022-10-13 22:12] VITALS: BP 147/54; PULSE 86; RESP 16; TEMP 36.9; O2SAT 98; BMI 41.8
[2022-10-13 22:36] LABS: Hematocrit 40.9 % (37.0-47.0); Mean Corpuscular HGB Conc 31.8 g/dl (31.0-35.0); Mean Corpuscular Hemoglobin 28.1 pg (27.0-33.0); Mean Corpuscular Volume 88.3 fL (80.0-98.0); Mean Platelet Volume 10.3 fL (9.4-12.3); Platelet Count 250 X10*3/uL (160-400); Red Blood Count 4.63 X10*6/uL (4.20-5.50); Red Cell Distribution Width 13.9 % (11.0-16.0); White Blood Count 12.5 X10*3/uL (4.8-10.8)
[2022-10-13 22:53] VITALS: BP 197/71; PULSE 95; RESP 20; TEMP 36.6; O2SAT 97
[2022-10-13 23:03] LABS: Appearance Urine Hazy; Color Urine Yellow; Glucose Urine UA Negative (Negative); Leukocyte Esterase Urine Negative (Negative); Nitrite Urine Negative (Negative); Specific Gravity - Urine 1.025 (1.005-1.025); UMIC TRIGGER UACC YES; Urine Blood Small (1+) (Negative); Urine Ketones Negative (Negative); Urine Protein Negative (Neg-Trace)
[2022-10-13 23:04] LABS: Alanine Aminotransferase 16 U/L (0-31); Alkaline Phosphatase 92 U/L (39-117); Anion Gap 15 (12-20); Aspartate Amino Transferase 14 U/L (5-31); Bilirubin Total 0.3 mg/dL (0.0-1.0); Blood Urea Nitrogen 21 mg/dL (9-16); Calcium 9.3 mg/dL (8.4-10.2); Carbon Dioxide 25 mmol/L (22-29); Chloride 104 mmol/L (96-108); Creatinine Clr Calc Pharmacy 80.8; Estimated Glomerular Filt Rate > 60; Glucose Random 134 mg/dL (60-115); Lipase 30 U/L (8-78); Potassium 5.1 mmol/L (3.3-5.1); Sodium 139 mmol/L (135-145); Total Protein 6.5 g/dL (6.5-8.0)
[2022-10-13 23:04] LABS: Bacteria Urine None Seen (None Seen); Hyaline Casts Urine 0-2 /LPF (0-2); WBC Urine 0-5 /HPF (0-5)
--- NOTE | 2022-10-13 23:12 | ED.ABDPAIN ---
HPI - Abdominal Pain General Chief Complaint: Abdominal Pain Stated Complaint: ?Uti, bloody urine back pain Time Seen by Provider: 10/13/22 23:10 Source: patient Mode of arrival: ambulatory Limitations: no limitations History of Present Illness HPI narrative: Patient with history of diabetes asthma high cholesterol was seen here last month for chest pain shortness of breath and upper back pain CT chest was negative now complaining of left flank pain for last 3 weeks also has slight hematuria and nausea Related Data Home Medications Medication Instructions Recorded Confirmed clotrimazole 1 % topical cream 1 applic topical BID 05/10/20 11/26/21 insulin glargine 100 unit/mL (3 32 unit subcut BID 05/10/20 11/26/21 mL) subcutaneous pen (Basaglar KwikPen U-100 Insulin) irbesartan 300 mg tablet 1 tab PO DAILY 05/10/20 11/26/21 metformin 1,000 mg tablet 2 tab PO QAM 05/10/20 11/26/21 omeprazole 20 mg capsule,delayed 1 cap PO BID 05/10/20 11/26/21 release dulaglutide 0.75 mg/0.5 mL 0.75 mg subcut QWEEK 05/22/20 11/26/21 subcutaneous pen injector (Trulicity) albuterol sulfate 90 mcg/actuation 2 puff inhalation QID 11/26/21 11/26/21 aerosol inhaler (ProAir HFA) blood sugar diagnostic (FreeStyle #10 ea 11/26/21 11/26/21 Lite Strips) flunisolide 29 mcg (0.025 %) nasal mcg intranasal 11/26/21 11/26/21 spray ketoconazole 2 % cream-miconazole See Rx Instructions topical 11/26/21 11/26/21 2 % tincture .COMPLEX meclizine 25 mg tablet 25 mg PO DAILY PRN 11/26/21 11/26/21 methocarbamol 500 mg tablet 500 mg PO .prn 11/26/21 11/26/21 pen needle, diabetic 29 gauge x #100 ea 11/26/21 11/26/2106/27 (BD Ultra-Fine Original Pen Needle) Previous Rx's Medication Instructions Recorded amlodipine 10 mg tablet 10 mg PO DAILY #30 tabs 05/12/20 atorvastatin 40 mg tablet (Lipitor) 40 mg PO BEDTIME #30 tabs 05/12/20 polyethylene glycol 3350 17 gram 17 g PO DAILY #14 ea 05/12/20 oral powder packet (Miralax) meloxicam 15 mg tablet 15 mg PO DAILY #14 tabs 08/10/22 tramadol 50 mg tablet 50 mg PO Q6H PRN pain #20 tabs 09/16/22 cyclobenzaprine 10 mg tablet 10 mg PO Q8H #20 tabs 10/14/22 oxycodone-acetaminophen 5 mg-325 1 tab PO Q6H PRN pain #20 tabs 10/14/22 mg tablet (Percocet) Allergies Allergy/AdvReac Type Severity Reaction Status Date / Time diclofenac AdvReac Headache Verified 09/16/22 01:16 demerol Allergy Unknown Unknown Uncoded 09/16/22 01:15 lisinopril Allergy Unknown Unknown Uncoded 09/16/22 01:15 Review of Systems Review of Systems Yes all other systems are reviewed and are negative [facility] Past Medical History Medical History Asthma Diabetes Diverticulitis Dizziness GERD (gastroesophageal reflux disease) High cholesterol HTN (hypertension) Small bowel obstruction Surgical History H/O exploratory laparotomy History of bilateral knee replacement History of partial colectomy Status post total abdominal hysterectomy Family History Family History Sister Diabetes ESRD (end stage renal disease) on dialysis Father CAD (coronary artery disease) Social History Social History Alcohol intake: never Cigarettes Per Day: 0 Advance Directives: No Advance Directives Information Provided: Yes service: No Current occupational status: retired Physical Exam ED Vital Signs: Vital Signs - 24 hr 10/13/22 22:12 10/13/22 22:53 10/14/22 00:00 Temperature 98.4 F 97.9 F 98.8 F Pulse Rate 86 95 78 Respiratory Rate 16 20 16 Blood Pressure 147/54 H 197/71 H 165/64 H Pulse Oximetry 98 97 97 Oxygen Delivery Method Room Air Room Air Room Air 10/14/22 01:58 10/14/22 02:35 Temperature 97.9 F Pulse Rate 71 68 Respiratory Rate 16 Blood Pressure 147/60 H 145/58 H Pulse Oximetry 96 95 Oxygen Delivery Method Room Air BMI result Body Mass Index 41.8 Appearance: Alert. Oriented X3. No acute distress. ENT: Pharynx normal. Oral Mucosa moist Neck: Normal inspection. Neck supple. CVS: Normal heart rate and rhythm. Pulses normal. Respiratory: No respiratory distress. Equal air entry bilateral, no wheezing/rales/rhonchi Abdomen: Soft and nontender. Bowel sounds are present, no mass palpable, L CVA tenderness++ Skin: Skin warm and dry. Normal skin color. Normal skin turgor. Extremities: No lower extremity edema. No calf tenderness Neuro: Oriented X 3. No motor deficit. Medical Decision Making Differential Diagnosis Patient with nonspecific left flank pain workup negative CT scan negative for kidney stone UA is negative discharge home likely musculoskeletal pain Admission/Observation Patient with left flank pain etiology not very clear workup is negative CT scan showed no kidney stone or internal abdominal pathology UA is negative likely musculoskeletal pain except patient home pain management Lab Data MDM Lab Attestation statement: I reviewed the patient's lab results. 10/13/22 22:29 10/13/22 22:29 Labs: Lab Results 10/13/22 10/13/22 10/13/22 Range/Units 22:29 22:29 22:55 WBC 12.5 H (4.8-10.8) X10*3/uL RBC 4.63 (4.20-5.50) X10*6/uL Hgb 13.0 (12.0-16.0) g/dl Hct 40.9 (37.0-47.0) % MCV 88.3 (80.0-98.0) fL MCH 28.1 (27.0-33.0) pg MCHC 31.8 (31.0-35.0) g/dl RDW 13.9 (11.0-16.0) % Plt Count 250 (160-400) X10*3/uL MPV 10.3 (9.4-12.3) fL Absolute Nucleated RBC 0.000 (0.0-0.012) X10*3/uL Nucleated RBC % (auto) 0.0 (0.0-0.2) /100WBC Sodium 139 (135-145) mmol/L Potassium 5.1 (3.3-5.1) mmol/L Chloride 104 (96-108) mmol/L Carbon Dioxide 25 (22-29) mmol/L Anion Gap 15 (12-20) BUN 21 H (9-16) mg/dL Creatinine 0.80 (0.5-1.4) mg/dL Estim Creat Clear Calc 80.8 Estimated GFR > 60 Random Glucose 134 H (60-115) mg/dL Calcium 9.3 D (8.4-10.2) mg/dL Total Bilirubin 0.3 (0.0-1.0) mg/dL AST 14 (5-31) U/L ALT 16 (0-31) U/L Alkaline Phosphatase 92 (39-117) U/L Total Protein 6.5 (6.5-8.0) g/dL Albumin 4.0 (3.5-5.0) g/dL Lipase 30 (8-78) U/L Urine Color Yellow Urine Appearance Hazy Urine pH 6.0 (5.0-9.0) Ur Specific [place] 1.025 (1.005-1.025) Urine Protein Negative (Neg-Trace) mg/dL Urine Glucose (UA) Negative (Negative) mg/dL Urine Ketones Negative (Negative) mg/dL Urine Blood Small (1+) H (Negative) Urine Nitrite Negative (Negative) Ur Leukocyte Esterase Negative (Negative) Urine RBC 3-5 H (0-2) /HPF Urine WBC 0-5 (0-5) /HPF Ur Squamous Epith Cells 6-10 (0-2) /HPF Urine Bacteria None Seen (None Seen) Hyaline Casts 0-2 (0-2) /LPF Medications Administered Discontinued Medications Generic Name Dose Route Start Last Admin Trade Name Freq PRN Reason Stop Dose Admin Cyclobenzaprine HCl 10 mg 10/14/22 00:42 10/14/22 00:51 Cyclobenzaprine Hcl 10 Mg Tablet PO 10/14/22 00:43 10 mg ONCE ONE Administration Ketorolac Tromethamine 60 mg 10/14/22 00:42 10/14/22 00:50 Ketorolac Tromethamine 60 Mg/2 Ml Vial IM 10/14/22 00:43 60 mg ONCE ONE Administration Morphine Sulfate 10 mg 10/14/22 01:49 10/14/22 01:55 Morphine Sulfate 10 Mg/Ml Cartridge IM 10/14/22 01:50 10 mg ONCE ONE Administration Protocol Ondansetron HCl 4 mg 10/13/22 23:34 10/13/22 23:38 Ondansetron Odt 4 Mg Tab.Rapdis TRANSLINGU 10/13/22 23:35 4 mg ONCE ONE Administration Oxycodone HCl 10 mg 10/13/22 23:33 10/13/22 23:38 Oxycodone Hcl Immed Release 5 Mg Tablet PO 10/13/22 23:34 10 mg ONCE ONE Administration Discharge Plan Discharge Clinical Impression: Acute lumbar myofascial strain Patient Disposition: Home, Self-Care Instructions: Acute Low Back Pain (ED) Additional Instructions: Take pain medication and muscle relaxants as prescribed Follow-up with urologist for hematuria Follow with PCP Prescriptions: New cyclobenzaprine 10 mg tablet 10 mg PO Q8H Qty: 20 0RF oxycodone-acetaminophen [Percocet] 5-325 mg tablet 1 tab PO Q6H PRN (Reason: pain) Qty: 20 0RF Rx Instructions: Partial Fill upon patient request. No Action metformin 1,000 mg tablet 2 tab PO QAM omeprazole 20 mg capsule,delayed release(DR/EC) 1 cap PO BID clotrimazole 1 % cream 1 applic topical BID irbesartan 300 mg tablet 1 tab PO DAILY Shruthiagljohnathan Newman U-100 Insulin 100 unit/mL (3 mL) insulin pen 32 unit subcut BID amlodipine 10 mg tablet 10 mg PO DAILY Qty: 30 0RF atorvastatin [Lipitor] 40 mg tablet 40 mg PO BEDTIME Qty: 30 0RF polyethylene glycol 3350 [Miralax] 17 gram powder in packet 17 g PO DAILY Qty: 14 0RF Trulicity 0.75 mg/0.5 mL pen injector 0.75 mg subcut QWEEK tramadol 50 mg tablet 50 mg PO Q6H PRN (Reason: pain) Qty: 20 0RF albuterol sulfate [ProAir HFA] 90 mcg/actuation HFA aerosol inhaler 2 puff inhalation QID ketoconazole-miconazole 2-2 % kit, cream and solution See Rx Instructions topical .COMPLEX Rx Instructions: apply KETOCONAZOLE once or twice daily; apply MICONAZOLE once or twice daily topical flunisolide 29 mcg (0.025 %) spray,non-aerosol intranasal (DME) FreeStyle Lite Strips Strip See Rx Instructions Not Applicable TID Qty: 10 Rx Instructions: As directed (DME) pen needle, diabetic [BD Ultra-Fine Orig Pen Needle] 29 gauge x 1/2 needle See Rx Instructions .ROUTE .MEDSUPPLY Qty: 100 Rx Instructions: As directed meclizine 25 mg tablet 25 mg PO DAILY PRN methocarbamol 500 mg tablet 500 mg PO .prn meloxicam 15 mg tablet 15 mg PO DAILY Qty: 14 0RF Interventions: ED Discharge Assessment Last Done: 10/14/22 02:55 Discharge Date/Time: 10/14/22 02:55
[2022-10-13] MEDS: Ondansetron ODT 4 MG TAB.RAPDIS TRANSLINGU (23:38)
[2022-10-13] MEDS: oxyCODONE HCl Immed Release 5 MG TABLET 10 MG PO (23:38)
[2022-10-14] VITALS: BP 165/64; PULSE 78; RESP 16; TEMP 37.1; O2SAT 97
[2022-10-14] MEDS: Ketorolac Tromethamine 60 MG/2 ML VIAL IM (00:50)
[2022-10-14] MEDS: Cyclobenzaprine HCl 10 MG TABLET PO (00:51)
[2022-10-14] MEDS: Morphine Sulfate 10 MG/ML CARTRIDGE IM (01:55)
[2022-10-14 01:58] VITALS: BP 147/60; PULSE 71; O2SAT 96
[2022-10-14 02:35] VITALS: BP 145/58; PULSE 68; RESP 16; TEMP 36.6; O2SAT 95
== END 2022-10-14 02:55 | disposition home or self-care (01) ==
PROVIDERS: Emergency Provider Internal Medicine; PCP Nurse Practitioner Family
DX: S39.012A Strain of muscle, fascia and tendon of lower back, initial encounter (principal); X58.XXXA Exposure to other specified factors, initial encounter; E11.9 Type 2 diabetes mellitus without complications; I10 Essential (primary) hypertension; E78.5 Hyperlipidemia, unspecified; Z79.85 Long-term (current) use of injectable non-insulin antidiabetic drugs; Z79.899 Other long term (current) drug therapy; Y93.9 Activity, unspecified; Y92.9 Unspecified place or not applicable; Y99.9 Unspecified external cause status
CPT/HCPCS: 36415; 74176; 80053; 81001; 83690; 85027; 96372; 99284; J1885; J2270

== ENCOUNTER 2022-10-30 15:25 | Observation (INO) | payer MEDICARE, SELFPAY ==
[2022-10-30] VITALS (9 sets, daily range): BP systolic 114–166; BP diastolic 59–87; PULSE 82–97; RESP 14–18; TEMP 36.3–37.3; O2SAT 92–98; BMI 42.9
--- NOTE | 2022-10-30 | ECG_ITS ---
Test Reason : syncope Blood Pressure : / mmHG Vent. Rate : 089 BPM Atrial Rate : 089 BPM P-R Int : 160 ms QRS Dur : 086 ms QT Int : 360 ms P-R-T Axes : -13 -27 028 degrees QTc Int : 438 ms Normal sinus rhythm Normal ECG When compared with ECG of 16-SEP-2022 00:10, No significant change was found Referred By: Generic ED Physician Electronically Signed By:HATTIE RODRIGUEZ
--- NOTE | ~2022-10-30 | XR_ITS ---
EXAMINATION: XR KNEE, LEFT CLINICAL INFORMATION: Left knee pain COMPARISON: None available. TECHNIQUE: 2 views of the left knee. FINDINGS: There is a total left knee prosthesis with prosthetic components in satisfactory alignment. No abnormal joint effusion or loose body seen. The soft tissues are normal. XR/XR knee LT 2V IMPRESSION: Total left knee prosthesis with prosthetic components in satisfactory alignment. No periprosthetic fracture or loosening.
--- NOTE | ~2022-10-30 | XR_ITS ---
EXAMINATION: XR CHEST CLINICAL INFORMATION: Syncope COMPARISON: 05/22/2020 TECHNIQUE: Frontal view of the chest was obtained. FINDINGS: Lungs are well expanded and grossly clear. No airspace disease or pleural effusion. Cardiac silhouette has normal size and contour. Pulmonary vascular pattern is normal. There is atherosclerotic calcification of the aorta. Mild dextrocurvature of the suboptimally visualized degenerated thoracic spine. XR/XR chest 1V IMPRESSION: No acute pulmonary disease.
--- NOTE | ~2022-10-30 | CT_ITS ---
EXAMINATION: CT head/brain wo IV con CLINICAL INFORMATION: Dizziness COMPARISON: None. TECHNIQUE: Contiguous axial imaging was performed from the skull base to vertex without intravenous contrast. Sagittal and coronal reformatted images were obtained. This CT examination was performed using dose optimization techniques as appropriate, variously including the following: * Automated exposure control * Adjustment of mA and/or kV according to patient size (this includes techniques or standardized protocols for targeted exams where dose is matched to indication/reason for exam; i.e. extremities or head) Use of iterative reconstruction technique DLP: 1852.36 mGy-cm FINDINGS: Mild age appropriate generalized parenchymal volume loss. No territorial loss of arvizu-white differentiation. No acute intracranial hemorrhage or extra-axial fluid collection. No mass lesion, significant mass effect, or herniation pattern. Intracranial calcific atherosclerotic disease. Bilateral lens extractions. Rightward nasal septal deviation with rightward bony spur. Paranasal sinuses and mastoid air cells are well aerated. Osseous structures are intact. CT/CT head/brain wo IV con IMPRESSION: No acute intracranial abnormality. Specifically, no CT evidence of acute intracranial hemorrhage, significant mass effect, hydrocephalus, or large territorial infarction.
--- NOTE | ~2022-10-30 | CT_ITS ---
EXAMINATION: CT ABDOMEN AND PELVIS WITHOUT CONTRAST CLINICAL INFORMATION: Nausea. Rule out small bowel obstruction. COMPARISON: CT scans dating between 10/13/2022 and 04/11/2018. TECHNIQUE: Multidetector volumetric imaging was performed from the superior aspect of the liver through the pubic symphysis. Sagittal and coronal reformatted images were obtained on the technologist's workstation. This CT examination was performed using dose optimization techniques as appropriate, variously including the following: *Automated exposure control *Adjustment of mA and/or kV according to patient size (this includes techniques or standardized protocols for targeted exams where dose is matched to indication/reason for exam; i.e. extremities or head) *Use of iterative reconstruction technique DLP: 1852 mGy-cm FINDINGS: LUNG BASES: The lung bases appear clear, with no evidence of inflammation or nodules. LIVER, GALLBLADDER, AND BILIARY TREE: The liver appears unremarkable in size, shape, and attenuation. No focal hepatic lesion or biliary ductal dilatation is appreciated. Unremarkable appearance of the gallbladder. PANCREAS: Unremarkable SPLEEN: Unremarkable ADRENAL GLANDS: Unremarkable KIDNEYS AND URETERS: Approximately 1 cm benign left upper pole simple renal cyst for which no further dedicated follow up imaging is indicated. The kidneys otherwise appear unremarkable in size, shape, and attenuation. No hydronephrosis, hydroureter, or calculi seen. BLADDER: Unremarkable GASTROINTESTINAL TRACT: Colonic diverticulosis without evidence of diverticulitis. Normal-appearing distal ileum. No evidence of appendicitis. Grossly unremarkable appearance of the stomach and small bowel, suboptimally evaluated without the benefit of oral and intravenous contrast. No evidence of obstruction. ABDOMINAL WALL: Vertical midline anterior abdominal wall surgical scar. No significant hernia is appreciated. LYMPH NODES: No evidence of adenopathy by size criteria. VASCULAR: Unremarkable PELVIC VISCERA: Status post hysterectomy. OSSEOUS STRUCTURES: Unremarkable CT/CT abdomen pelvis wo IV con IMPRESSION: No acute finding.
[2022-10-30 16:02] LABS: MANUAL DIFF FLAG NO
[2022-10-30 16:03] LABS: Basophils Absolute Auto 0.1 X10*3/uL (0.0-0.2); Basophils Percent Auto 0.9 % (0-2); Eosinophils Absolute Auto 0.4 X10*3/uL (0.0-0.4); Eosinophils Percent Auto 2.9 % (0-4); Hemoglobin 14.2 g/dl (12.0-16.0); Imm Gran Abs Auto 0.08 X10*3/uL (0.00-0.03); Imm Gran Pct Auto 0.5 % (0.0-0.4); Lymphocytes Absolute Auto 2.9 X10*3/uL (1.2-4.9); Lymphocytes Percent Auto 20.2 % (20-40); Mean Corpuscular Hemoglobin 28.6 pg (27.0-33.0); Mean Corpuscular Volume 86.7 fL (80.0-98.0); Mean Platelet Volume 10.9 fL (9.4-12.3); Monocytes Absolute Auto 1.2 X10*3/uL (0.1-1.2); Monocytes Percent Auto 8.5 % (2-11); Neutrophils Absolute Auto 9.8 x10*3/uL (2.0-8.3); Platelet Count 275 X10*3/uL (160-400); Red Blood Count 4.96 X10*6/uL (4.20-5.50); Red Cell Distribution Width 13.9 % (11.0-16.0); White Blood Count 14.6 X10*3/uL (4.8-10.8)
--- NOTE | 2022-10-30 16:40 | ED_ITS ---
HPI - General Adult General Chief complaint: Syncope Stated complaint: FAINTED PER EMS Time Seen by Provider: 10/30/22 16:09 Source: patient Mode of arrival: ambulatory Limitations: no limitations History of Present Illness HPI narrative: 67-year-old female with past medical history of diabetes, small-bowel obstruc tion, hypertension, vertigo, high cholesterol GERD, pericardial effusion, presents to the ED for syncopal episode. Patient states she was at [employer] and she fell nauseous then she woke up on the ground. Patient was informed with EMS came and checked her glucose was 79. Patient states this morning her glucose was 69 so she did not take her Humalog. Patient denies having any chest pain, slurred speech, facial droop, abdominal pain, or headache before passing out. Patient denies any neuro deficits. Patient denies any recent lungs travel or recent surgery. Patient presently denies any neuro deficits. Patient describes nausea as dizziness. Patient states she only had ham sandwich within the day. Related Data Home Medications Medication Instructions Recorded Confirmed clotrimazole 1 % topical cream 1 applic topical BID 05/10/20 11/26/21 insulin glargine 100 unit/mL (3 32 unit subcut BID 05/10/20 11/26/21 mL) subcutaneous pen (Basaglar KwikPen U-100 Insulin) irbesartan 300 mg tablet 1 tab PO DAILY 05/10/20 11/26/21 metformin 1,000 mg tablet 2 tab PO QAM 05/10/20 11/26/21 omeprazole 20 mg capsule,delayed 1 cap PO BID 05/10/20 11/26/21 release dulaglutide 0.75 mg/0.5 mL 0.75 mg subcut QWEEK 05/22/20 11/26/21 subcutaneous pen injector (Trulicity) albuterol sulfate 90 mcg/actuation 2 puff inhalation QID 11/26/21 11/26/21 aerosol inhaler (ProAir HFA) blood sugar diagnostic (FreeStyle #10 ea 11/26/21 11/26/21 Lite Strips) flunisolide 29 mcg (0.025 %) nasal mcg intranasal 11/26/21 11/26/21 spray ketoconazole 2 % cream-miconazole See Rx Instructions topical 11/26/21 11/26/21 2 % tincture .COMPLEX meclizine 25 mg tablet 25 mg PO DAILY PRN 11/26/21 11/26/21 methocarbamol 500 mg tablet 500 mg PO .prn 11/26/21 11/26/21 pen needle, diabetic 29 gauge x #100 ea 11/26/21 11/26/21 1/2 (BD Ultra-Fine Original Pen Needle) Previous Rx's Medication Instructions Recorded amlodipine 10 mg tablet 10 mg PO DAILY #30 tabs 05/12/20 atorvastatin 40 mg tablet (Lipitor) 40 mg PO BEDTIME #30 tabs 05/12/20 polyethylene glycol 3350 17 gram 17 g PO DAILY #14 ea 05/12/20 oral powder packet (Miralax) meloxicam 15 mg tablet 15 mg PO DAILY #14 tabs 08/10/22 tramadol 50 mg tablet 50 mg PO Q6H PRN pain #20 tabs 09/16/22 cyclobenzaprine 10 mg tablet 10 mg PO Q8H #20 tabs 10/14/22 oxycodone-acetaminophen 5 mg-325 1 tab PO Q6H PRN pain #20 tabs 10/14/22 mg tablet (Percocet) Allergies Allergy/AdvReac Type Severity Reaction Status Date / Time diclofenac AdvReac Headache Verified 10/30/22 15:35 demerol Allergy Unknown Unknown Uncoded 09/16/22 01:15 lisinopril Allergy Unknown Unknown Uncoded 09/16/22 01:15 Review of Systems 2 Review of Systems: Nausea and syncope Yes all other systems are reviewed and are negative [facility] Past Medical History Medical History Asthma Diabetes Diverticulitis Dizziness GERD (gastroesophageal reflux disease) High cholesterol HTN (hypertension) Small bowel obstruction Surgical History H/O exploratory laparotomy History of bilateral knee replacement History of partial colectomy Status post total abdominal hysterectomy Family History Family History Sister Diabetes ESRD (end stage renal disease) on dialysis Father CAD (coronary artery disease) Social History Social History Alcohol intake: never Cigarettes Per Day: 0 Advance Directives: No Advance Directives Information Provided: No service: No Current occupational status: retired Physical Exam ED Vital Signs: Vital Signs - 24 hr 10/30/22 15:33 10/30/22 17:04 10/30/22 17:06 Temperature 99.2 F Pulse Rate 91 82 87 Respiratory Rate 18 Blood Pressure 150/67 H 151/62 H 164/70 H Pulse Oximetry 92 Oxygen Delivery Method Room Air 10/30/22 17:07 10/30/22 19:14 Temperature 98.2 F Pulse Rate 94 87 Respiratory Rate 16 Blood Pressure 146/72 H 131/59 L Pulse Oximetry 93 Oxygen Delivery Method Room Air BMI result Body Mass Index 42.9 Const General: cooperative, healthy appearing, comfortable and no acute distress Orientation/consciousness: oriented to person, oriented to place, oriented to time and patient oriented x3 HENMT Head: Yes normal to inspection, Yes No palpable skull fracture present, Yes normocephalic, Yes atraumatic and No abrasion Ears: hearing grossly normal bilaterally and external ears normal Throat: Yes posterior oropharynx normal, Yes tonsils normal and Yes uvula midline Eyes Other: horizontal nystagmus to the right. When patient was being placed flat she felt dizzy. General: appearance normal, both eyes and all related structures Neck Neck: Yes normal visual inspection, Yes full ROM, Yes no lymphadenopathy, Yes no meningeal signs, Yes trachea midline, Yes supple, No anterior neck swelling and No tender Chest Chest palpation & inspection: normal inspection of the chest and normal palpation of entire chest wall Resp Effort & Inspection: normal respiratory effort and able to speak in complete sentences Auscultation: clear to auscultation bilaterally Cardio Jugular venous distension: no JVD Heart sounds: S1 normal heart sound present and S2 normal heart sound present GI Inspection: Yes normal to inspection and No abdominal wall ecchymosis Palpation (GI): Soft to palpation, not firm, nontender, no guarding and not rigid General: No CVA tenderness and Yes no CVA tenderness Back/Spine/Pelvis Back: no CVA tenderness, No CVA tenderness and No back tenderness Skin General skin exam: no rashes or lesions noted and elasticity normal Neuro Other: Negative slurred speech. Negative facial droop. Negative pronator drift. All extremities equal strength 5+. [id number] rapid head movement intact. Negative vision loss. NIH Score 0 General: oriented to person, oriented to place, oriented to time, patient oriented x3, gait normal, tone normal, moves all extremities, Normal light touch and pain sensation, no meningeal signs, no focal motor deficits, CN's II-XI intact bilaterally and normal sensation to monofilament Extrem Other: negative pitting edmea, calf tenderness, swelling. General: Yes normal to inspection and Yes full ROM Psych Appearance: grossly normal, well kempt and not disheveled Course Course Course Narrative: Patient feel like she is having vertigo. Due to age will do cardiac workup. O rthostatics ordered. Chest x-ray ordered look for infection. UA ordered. Repeat fingerstick 110. EKG pending Reevaluation(s) Reevaluation #1: Patient received Zofran, meclizine, Reglan, and fluids. Patient still felt dizz y. EKG 2 troponin is negative. UA negative for UTI. Patient able to ambulate on her own with help. Glucose maintained throughout the ED visit. Due to patient passed out, and feels dizzy patient will be admitted for observation. With horizontal nystagmus this could be a Vertigo also. Hospitalist Dr. Puga re-evaluated patient and states patient's symptoms were due to hypoglycemia. Patient informed before she passed out she felt clammy. Dr. Dobbins Recommends patient be admitted for observation for syncope and hypoglycemia. Patient orthostatics negative Time: 21:47 Medications Administered Discontinued Medications Generic Name Dose Route Start Last Admin Trade Name Freq PRN Reason Stop Dose Admin Sodium Chloride 1,000 mls @ 999 mls/hr 10/30/22 16:13 10/30/22 18:05 Ns IV 10/30/22 17:13 Infused .Q1H1M STA Infusion Meclizine HCl 50 mg 10/30/22 17:56 10/30/22 18:05 Meclizine Hcl 25 Mg Tablet PO 10/30/22 17:57 50 mg ONCE ONE Administration Metoclopramide HCl 10 mg 10/30/22 17:56 10/30/22 18:05 Metoclopramide Hcl 10 Mg/2 Ml Vial IVPUSH 10/30/22 17:57 10 mg ONCE ONE Administration Ondansetron HCl 4 mg 10/30/22 16:30 10/30/22 16:43 Ondansetron Hcl 4 Mg/2 Ml Vial IVPUSH 10/30/22 16:31 4 mg ONCE ONE Administration Medical Decision Making Medical Decision Making [facility] Narrative: 67-year-old female presents to the ED for syncopal episode and hypoglycemia. Patient denies any neuro symptoms before passing out. Patient denies any chest pain or shortness of breath. Patient was treated as syncope in the ER. Due to history of vertigo was given meclizine, Reglan, and Zofran for the nausea. Negative for any neuro deficits. Patient able to ambulate with help negative for ataxia. Glucose maintained above 100 during the ED visit. EKG negative STEMI. Head CT abdominal CT scan normal. Chest x-ray normal. UA shows more d irty catch than urine infection. Not suspecting PE. Patient will be admitted for syncope/hyperglycemia. Differential Diagnosis Differential Diagnoses: The differential diagnosis associated with the presentation includes (Myocardial infarction, stroke, hypoglycemia, vertigo, pneumonia, small-bowel obstruction, GERD) Admission/Observation Consideration of admission/observation: Escalation of care including admission/observation considered Consult Healthcare Provider Management of the patient was discussed with: Hospitalist (Dr. Dobbins) Lab Data [facility] Lab Attestation statement: I reviewed the patient's lab results. 10/30/22 15:59 10/30/22 15:59 Labs: Lab Results 10/30/22 10/30/22 10/30/22 Range/Units 15:59 16:36 16:36 WBC 14.6 H (4.8-10.8) X10*3/uL RBC 4.96 (4.20-5.50) X10*6/uL Hgb 14.2 (12.0-16.0) g/dl Hct 43.0 (37.0-47.0) % MCV 86.7 (80.0-98.0) fL MCH 28.6 (27.0-33.0) pg MCHC 33.0 (31.0-35.0) g/dl RDW 13.9 (11.0-16.0) % Plt Count 275 (160-400) X10*3/uL MPV 10.9 (9.4-12.3) fL Immature Gran % (Auto) 0.5 H (0.0-0.4) % Neut % (Auto) 67.0 (45-73) % Lymph % (Auto) 20.2 (20-40) % Dickenson % (Auto) 8.5 (2-11) % Eos % (Auto) 2.9 (0-4) % Baso % (Auto) 0.9 (0-2) % Lymph # (Auto) 2.9 (1.2-4.9) X10*3/uL Dickenson # (Auto) 1.2 (0.1-1.2) X10*3/uL Eos # (Auto) 0.4 (0.0-0.4) X10*3/uL Baso # (Auto) 0.1 (0.0-0.2) X10*3/uL Abs Immat Gran (auto) 0.08 H (0.00-0.03) X10*3/uL Absolute Neuts (auto) 9.8 H (2.0-8.3) x10*3/uL Absolute Nucleated RBC 0.000 (0.0-0.012) X10*3/uL Nucleated RBC % (auto) 0.0 (0.0-0.2) /100WBC PT (10.0-13.1) SEC INR (0.9-1.1) Sodium 139 (135-145) mmol/L Potassium 4.7 (3.3-5.1) mmol/L Chloride 103 (96-108) mmol/L Carbon Dioxide 23 (22-29) mmol/L Anion Gap 18 (12-20) BUN 17 H (9-16) mg/dL Creatinine 0.87 (0.5-1.4) mg/dL Estim Creat Clear Calc 75.3 Estimated GFR > 60 POC Glucose (60-115) mg/dL Random Glucose 106 (60-115) mg/dL Calcium 10.4 H D (8.4-10.2) mg/dL Magnesium 1.9 (1.6-2.6) mg/dL Total Bilirubin 0.4 (0.0-1.0) mg/dL Direct Bilirubin 0.1 (0.0-0.5) mg/dL AST 17 (5-31) U/L ALT 22 (0-31) U/L Alkaline Phosphatase 95 (39-117) U/L Troponin I High Sens 2.7 (<3.5-17.0) ng/L Total Protein 7.2 (6.5-8.0) g/dL Albumin 4.3 (3.5-5.0) g/dL Urine Color Urine Appearance Urine pH (5.0-9.0) Ur Specific [place] (1.005-1.025) Urine Protein (Neg-Trace) mg/dL Urine Glucose (UA) (Negative) mg/dL Urine Ketones (Negative) mg/dL Urine Blood (Negative) Urine Nitrite (Negative) Ur Leukocyte Esterase (Negative) Urine RBC (0-2) /HPF Urine WBC (0-5) /HPF Ur Squamous Epith Cells (0-2) /HPF Urine Bacteria (None Seen) Hyaline Casts (0-2) /LPF 10/30/22 10/30/22 10/30/22 Range/Units 16:36 16:43 18:22 WBC (4.8-10.8) X10*3/uL RBC (4.20-5.50) X10*6/uL Hgb (12.0-16.0) g/dl Hct (37.0-47.0) % MCV (80.0-98.0) fL MCH (27.0-33.0) pg MCHC (31.0-35.0) g/dl RDW (11.0-16.0) % Plt Count (160-400) X10*3/uL MPV (9.4-12.3) fL Immature Gran % (Auto) (0.0-0.4) % Neut % (Auto) (45-73) % Lymph % (Auto) (20-40) % Dickenson % (Auto) (2-11) % Eos % (Auto) (0-4) % Baso % (Auto) (0-2) % Lymph # (Auto) (1.2-4.9) X10*3/uL Dickenson # (Auto) (0.1-1.2) X10*3/uL Eos # (Auto) (0.0-0.4) X10*3/uL Baso # (Auto) (0.0-0.2) X10*3/uL Abs Immat Gran (auto) (0.00-0.03) X10*3/uL Absolute Neuts (auto) (2.0-8.3) x10*3/uL Absolute Nucleated RBC (0.0-0.012) X10*3/uL Nucleated RBC % (auto) (0.0-0.2) /100WBC PT 11.6 (10.0-13.1) SEC INR 1.0 (0.9-1.1) Sodium (135-145) mmol/L Potassium (3.3-5.1) mmol/L Chloride (96-108) mmol/L Carbon Dioxide (22-29) mmol/L Anion Gap (12-20) BUN (9-16) mg/dL Creatinine (0.5-1.4) mg/dL Estim Creat Clear Calc Estimated GFR POC Glucose 110 (60-115) mg/dL Random Glucose (60-115) mg/dL Calcium (8.4-10.2) mg/dL Magnesium (1.6-2.6) mg/dL Total Bilirubin (0.0-1.0) mg/dL Direct Bilirubin (0.0-0.5) mg/dL AST (5-31) U/L ALT (0-31) U/L Alkaline Phosphatase (39-117) U/L Troponin I High Sens (<3.5-17.0) ng/L Total Protein (6.5-8.0) g/dL Albumin (3.5-5.0) g/dL Urine Color Yellow Urine Appearance Clear Urine pH 6.0 (5.0-9.0) Ur Specific [place] 1.020 (1.005-1.025) Urine Protein 30 (1+) H (Neg-Trace) mg/dL Urine Glucose (UA) Negative (Negative) mg/dL Urine Ketones Trace (Negative) mg/dL Urine Blood Negative (Negative) Urine Nitrite Negative (Negative) Ur Leukocyte Esterase Trace H (Negative) Urine RBC 3-5 H (0-2) /HPF Urine WBC 0-5 (0-5) /HPF Ur Squamous Epith Cells 11-20 (0-2) /HPF Urine Bacteria Trace (None Seen) Hyaline Casts >20 (0-2) /LPF 10/30/22 Range/Units 19:49 WBC (4.8-10.8) X10*3/uL RBC (4.20-5.50) X10*6/uL Hgb (12.0-16.0) g/dl Hct (37.0-47.0) % MCV (80.0-98.0) fL MCH (27.0-33.0) pg MCHC (31.0-35.0) g/dl RDW (11.0-16.0) % Plt Count (160-400) X10*3/uL MPV (9.4-12.3) fL Immature Gran % (Auto) (0.0-0.4) % Neut % (Auto) (45-73) % Lymph % (Auto) (20-40) % Dickenson % (Auto) (2-11) % Eos % (Auto) (0-4) % Baso % (Auto) (0-2) % Lymph # (Auto) (1.2-4.9) X10*3/uL Dickenson # (Auto) (0.1-1.2) X10*3/uL Eos # (Auto) (0.0-0.4) X10*3/uL Baso # (Auto) (0.0-0.2) X10*3/uL Abs Immat Gran (auto) (0.00-0.03) X10*3/uL Absolute Neuts (auto) (2.0-8.3) x10*3/uL Absolute Nucleated RBC (0.0-0.012) X10*3/uL Nucleated RBC % (auto) (0.0-0.2) /100WBC PT (10.0-13.1) SEC INR (0.9-1.1) Sodium (135-145) mmol/L Potassium (3.3-5.1) mmol/L Chloride (96-108) mmol/L Carbon Dioxide (22-29) mmol/L Anion Gap (12-20) BUN (9-16) mg/dL Creatinine (0.5-1.4) mg/dL Estim Creat Clear Calc Estimated GFR POC Glucose (60-115) mg/dL Random Glucose (60-115) mg/dL Calcium (8.4-10.2) mg/dL Magnesium (1.6-2.6) mg/dL Total Bilirubin (0.0-1.0) mg/dL Direct Bilirubin (0.0-0.5) mg/dL AST (5-31) U/L ALT (0-31) U/L Alkaline Phosphatase (39-117) U/L Troponin I High Sens < 2.7 (<3.5-17.0) ng/L Total Protein (6.5-8.0) g/dL Albumin (3.5-5.0) g/dL Urine Color Urine Appearance Urine pH (5.0-9.0) Ur Specific [place] (1.005-1.025) Urine Protein (Neg-Trace) mg/dL Urine Glucose (UA) (Negative) mg/dL Urine Ketones (Negative) mg/dL Urine Blood (Negative) Urine Nitrite (Negative) Ur Leukocyte Esterase (Negative) Urine RBC (0-2) /HPF Urine WBC (0-5) /HPF Ur Squamous Epith Cells (0-2) /HPF Urine Bacteria (None Seen) Hyaline Casts (0-2) /LPF Independent Interpretation I performed an independent interpretation of an: EKG, Plain X-Ray and CT Scan Interpretation: Normal sinus rhythm. Normal EKG. Ventricular rate 89. CT interval 160. QRS 86. QTC 438. Negative STEMI Radiology Impression Discussion of test interpretation with radiology: I have reviewed the radiologist's reading. Discharge Plan Discharge Clinical Impression: Syncope, Hypoglycemia Patient Disposition: Admitted As Inpatient
[2022-10-30] MEDS: 0.9 % Sodium Chloride 1,000 ML 999 ML IV (16:43)
[2022-10-30] MEDS: ondansetron HCL 4 MG/2 ML VIAL IVPUSH (16:43)
[2022-10-30 16:47] LABS: Glucose, Whole Blood 110 mg/dL (60-115)
[2022-10-30 16:56] LABS: Alanine Aminotransferase 22 U/L (0-31); Albumin Level 4.3 g/dL (3.5-5.0); Alkaline Phosphatase 95 U/L (39-117); Anion Gap 18 (12-20); Aspartate Amino Transferase 17 U/L (5-31); Bilirubin Direct 0.1 mg/dL (0.0-0.5); Bilirubin Total 0.4 mg/dL (0.0-1.0); Blood Urea Nitrogen 17 mg/dL (9-16); Calcium 10.4 mg/dL (8.4-10.2); Carbon Dioxide 23 mmol/L (22-29); Chloride 103 mmol/L (96-108); Creatinine Clr Calc Pharmacy 75.3; Estimated Glomerular Filt Rate > 60; Glucose Random 106 mg/dL (60-115); Magnesium 1.9 mg/dL (1.6-2.6); Potassium 4.7 mmol/L (3.3-5.1); Sodium 139 mmol/L (135-145); Total Protein 7.2 g/dL (6.5-8.0)
[2022-10-30 16:58] LABS: Prothrombin Time 11.6 SEC (10.0-13.1)
[2022-10-30 17:03] LABS: Troponin-I High Sensitivity 2.7 ng/L (<3.5-17.0)
[2022-10-30] MEDS: Meclizine HCl 25 MG TABLET 50 MG PO (18:05)
[2022-10-30] MEDS: Metoclopramide HCl 10 MG/2 ML VIAL IVPUSH (18:05)
[2022-10-30 19:00] LABS: Color Urine Yellow; Glucose Urine UA Negative (Negative); Leukocyte Esterase Urine Trace (Negative); Nitrite Urine Negative (Negative); UMIC TRIGGER UACC YES; Urine Blood Negative (Negative); Urine Ketones Trace mg/dL (Negative); Urine Protein 30 (1+) mg/dL (Neg-Trace)
[2022-10-30 19:01] LABS: Appearance Urine Clear; Bacteria Urine Trace (None Seen); Hyaline Casts Urine >20 /LPF (0-2); WBC Urine 0-5 /HPF (0-5)
--- NOTE | 2022-10-30 20:00 | PC.NURSE ---
This mortgage loan underwriter assumed care of this Pt at 1900. Pt A&Ox4, denies any pain, reports feeling a little dizzy, not as bad as when I came in . Pt denies N/V, CP or SOB. Pt tolerating PO fluids.
[2022-10-30 20:30] LABS: Troponin-I High Sensitivity < 2.7 ng/L (<3.5-17.0)
--- NOTE | 2022-10-30 22:15 | PC.NURSE ---
RN to RN report given to Brandon in ED overflow. Pt will be transported by transporter, pt aware of plan.
[2022-10-31] VITALS (9 sets, daily range): BP systolic 130–170; BP diastolic 62–78; PULSE 78–90; RESP 16–22; TEMP 36–36.8; O2SAT 92–96; BMI 44.0
[2022-10-31 06:33] LABS: Basophils Absolute Auto 0.1 X10*3/uL (0.0-0.2); Basophils Percent Auto 1.1 % (0-2); Eosinophils Absolute Auto 0.4 X10*3/uL (0.0-0.4); Eosinophils Percent Auto 3.6 % (0-4); Hemoglobin 12.9 g/dl (12.0-16.0); Imm Gran Abs Auto 0.07 X10*3/uL (0.00-0.03); Imm Gran Pct Auto 0.6 % (0.0-0.4); Lymphocytes Absolute Auto 3.4 X10*3/uL (1.2-4.9); MANUAL DIFF FLAG SCAN; Mean Corpuscular HGB Conc 33.9 g/dl (31.0-35.0); Mean Corpuscular Hemoglobin 29.3 pg (27.0-33.0); Mean Corpuscular Volume 86.4 fL (80.0-98.0); Monocytes Absolute Auto 1.1 X10*3/uL (0.1-1.2); Monocytes Percent Auto 9.5 % (2-11); Neutrophils Absolute Auto 6.3 x10*3/uL (2.0-8.3); Neutrophils Percent Auto 55.2 % (45-73); PLT CLUMP 1; Red Cell Distribution Width 13.8 % (11.0-16.0); SCAN SMEAR FLAG 1; White Blood Count 11.3 X10*3/uL (4.8-10.8)
--- NOTE | 2022-10-31 06:34 | PM.IMHP ---
History of Present Illness Date of Service: 10/30/22 Chief Complaint: syncope 67-year-old female past medical history of HTN, HLD, diabetes, GERD, asthma, who presents to the hospital after a syncopal episode. Patient reports that she was at a birthday constitution party, she got up to get some food, she felt clammy, diaphoretic, felt very weak, and passed out. This lasted few minutes, on arrival of EMS patient was found to have a glucose of 76. Patient reports that she has been having a unpredictable sugar readings with her glucose going up and down but has had multiple episodes of hypoglycemia in the past few days. Patient reports that that morning she woke up with a glucose in the 60s, also pre lunch she was in the 60s, she ate some food with 8 improving to 130s, but she did not get a chance to check her glucose at the constitution party. She did feel dizzy during the constitution party as well. She denies any stroke-like symptoms. States that her Trulicity was increased about a week ago. Denies any palpitations, no chest pain, no head trauma, no headache or change in vision, no urinary symptoms and no lower extremity edema. On arrival to the ED patient hemodynamically stable with no significant abnormal vitals Labs are significant for WBC count of 14.6, appears to be chronically elevated Glucose of 106 on arrival, troponin negative, UA positive for leukocyte Estrace, WBC, some bacteria Review of Systems Review of Systems: Yes all other systems are reviewed and are negative FORMERLY [facility], [facility] Medical History Asthma Diabetes Diverticulitis Dizziness GERD (gastroesophageal reflux disease) High cholesterol HTN (hypertension) Small bowel obstruction Family History Sister Diabetes ESRD (end stage renal disease) on dialysis Father CAD (coronary artery disease) Surgical History H/O exploratory laparotomy History of bilateral knee replacement History of partial colectomy Status post total abdominal hysterectomy Social History Alcohol intake: never Cigarettes Per Day: 0 Smoked in Last 30 Days: No Use of substances other than those prescribed or required for medical reasons: No Advance Directives: No Advance Directives Information Provided: No service: No Current occupational status: retired Meds Allergies Allergy/AdvReac Type Severity Reaction Status Date / Time diclofenac AdvReac Headache Verified 10/30/22 15:35 demerol Allergy Unknown Unknown Uncoded 09/16/22 01:15 lisinopril Allergy Unknown Unknown Uncoded 09/16/22 01:15 Active Medications: Current Medications Acetaminophen (Acetaminophen 325 Mg Tablet) 650 mg PO Q6H PRN PRN Reason: Pain, Mild (Pain Scale 1-3) Glucose (Glucose Gel 15 Gm Gel..Gram.) 15 gm PO Q15M PRN; Protocol PRN Reason: per Hypoglycemia Standing Ord. Dextrose (D10) 250 mls @ 750 mls/hr IV Q15M PRN; Protocol PRN Reason: per Hypoglycemia Standing Ord. Insulin Human Lispro (Insulin Lispro 100 Unit/Ml 3 Ml Vial) 0 unit SUBCUT QIDACHS [facility]; Protocol Ondansetron HCl (Ondansetron Hcl 4 Mg/2 Ml Vial) 4 mg IVPUSH Q8H PRN PRN Reason: Nausea and Vomiting Pharmacy Consult (Consult Rx Perform Med Rec) 1 each MISCELLANE ONCE PRN PRN Reason: Consult order Sodium Chloride (0.9 % Sodium Chloride Flush 3 Ml Syringe) [facility] Last Admin: 10/31/22 00:45 Dose: Not Given Home Medications Medication Instructions Recorded Confirmed Last Taken Type clotrimazole 1 % topical cream 1 applic topical BID 05/10/20 11/26/21 Unknown History insulin glargine 100 unit/mL (3 32 unit subcut BID 05/10/20 11/26/21 Unknown History mL) subcutaneous pen (Basaglar ElissaPen U-100 Insulin) irbesartan 300 mg tablet 1 tab PO DAILY 05/10/20 11/26/21 Unknown History metformin 1,000 mg tablet 2 tab PO QAM 05/10/20 11/26/21 Unknown History omeprazole 20 mg capsule,delayed 1 cap PO BID 05/10/20 11/26/21 Unknown History release dulaglutide 0.75 mg/0.5 mL 0.75 mg subcut QWEEK 05/22/20 11/26/21 Unknown History subcutaneous pen injector ([facility]) albuterol sulfate 90 mcg/actuation 2 puff inhalation QID 11/26/21 11/26/21 Unknown History aerosol inhaler (ProAir HFA) blood sugar diagnostic (FreeStyle #10 ea 11/26/21 11/26/21 Unknown History Lite Strips) flunisolide 29 mcg (0.025 %) nasal mcg intranasal 11/26/21 11/26/21 Unknown History spray ketoconazole 2 % cream-miconazole See Rx Instructions topical 11/26/21 11/26/21 Unknown History 2 % tincture .COMPLEX meclizine 25 mg tablet 25 mg PO DAILY PRN 11/26/21 11/26/21 Unknown History methocarbamol 500 mg tablet 500 mg PO .prn 11/26/21 11/26/21 Unknown History pen needle, diabetic 29 gauge x #100 ea 11/26/21 11/26/21 Unknown History 1/2 (BD Ultra-Fine Original Pen Needle) Physical Exam Vital Signs and Narrative: Vital Signs: Last Vital Signs Temp 97.3 F 10/30/22 22:48 Pulse 82 10/30/22 22:48 Resp 16 10/30/22 22:48 BP 166/70 H 10/30/22 22:48 Pulse Ox 95 10/30/22 23:49 O2 Del Method Room Air 10/30/22 23:49 BMI result Body Mass Index 42.9 Const: General: cooperative and no acute distress Orientation/consciousness: patient oriented x3 Eyes: General: appearance normal, both eyes and all related structures Pupils: Equal, round and reactive pupils present Resp: Effort & Inspection: normal respiratory effort Auscultation: clear to auscultation bilaterally Cardio: Rate: regular rate Rhythm: regular rhythm GI: Palpation (GI): Soft to palpation Auscultation: normal bowel sounds Skin: General skin exam: no rashes or lesions noted Neuro: General: patient oriented x3 Cranial nerves: Yes Equal, round and reactive pupils present Cognition (Neuro): normal cognition Extrem: General: Yes normal to inspection and Yes no pedal edema Results Labs 10/30/22 15:59 10/30/22 16:36 Labs: Laboratory Results - last 24 hr 10/30/22 10/30/22 10/30/22 15:59 16:36 16:36 MCV 86.7 MCH 28.6 MCHC 33.0 RDW 13.9 Plt Count 275 MPV 10.9 Immature Gran % (Auto) 0.5 H Neut % (Auto) 67.0 Lymph % (Auto) 20.2 [place] % (Auto) 8.5 Eos % (Auto) 2.9 Baso % (Auto) 0.9 Lymph # (Auto) 2.9 [place] # (Auto) 1.2 Eos # (Auto) 0.4 Baso # (Auto) 0.1 Abs Immat Gran (auto) 0.08 H Absolute Neuts (auto) 9.8 H Absolute Nucleated RBC 0.000 Nucleated RBC % (auto) 0.0 PT INR Anion Gap 18 Estim Creat Clear Calc 75.3 Estimated GFR > 60 POC Glucose Random Glucose 106 Calcium 10.4 H D Magnesium 1.9 Total Bilirubin 0.4 Direct Bilirubin 0.1 AST 17 ALT 22 Alkaline Phosphatase 95 Troponin I High Sens 2.7 Total Protein 7.2 Albumin 4.3 Urine Color Urine Appearance Urine pH Ur Specific [place] Urine Protein Urine Glucose (UA) Urine Ketones Urine Blood Urine Nitrite Ur Leukocyte Esterase Urine RBC Urine WBC Ur Squamous Epith Cells Urine Bacteria Hyaline Casts 10/30/22 10/30/22 10/30/22 16:36 16:43 18:22 MCV MCH MCHC RDW Plt Count MPV Immature Gran % (Auto) Neut % (Auto) Lymph % (Auto) [place] % (Auto) Eos % (Auto) Baso % (Auto) Lymph # (Auto) [place] # (Auto) Eos # (Auto) Baso # (Auto) Abs Immat Gran (auto) Absolute Neuts (auto) Absolute Nucleated RBC Nucleated RBC % (auto) PT 11.6 INR 1.0 Anion Gap Estim Creat Clear Calc Estimated GFR POC Glucose 110 Random Glucose Calcium Magnesium Total Bilirubin Direct Bilirubin AST ALT Alkaline Phosphatase Troponin I High Sens Total Protein Albumin Urine Color Yellow Urine Appearance Clear Urine pH 6.0 Ur Specific [place] 1.020 Urine Protein 30 (1+) H Urine Glucose (UA) Negative Urine Ketones Trace Urine Blood Negative Urine Nitrite Negative Ur Leukocyte Esterase Trace H Urine RBC 3-5 H Urine WBC 0-5 Ur Squamous Epith Cells 11-20 Urine Bacteria Trace Hyaline Casts >20 10/30/22 19:49 MCV MCH MCHC RDW Plt Count MPV Immature Gran % (Auto) Neut % (Auto) Lymph % (Auto) [place] % (Auto) Eos % (Auto) Baso % (Auto) Lymph # (Auto) [place] # (Auto) Eos # (Auto) Baso # (Auto) Abs Immat Gran (auto) Absolute Neuts (auto) Absolute Nucleated RBC Nucleated RBC % (auto) PT INR Anion Gap Estim Creat Clear Calc Estimated GFR POC Glucose Random Glucose Calcium Magnesium Total Bilirubin Direct Bilirubin AST ALT Alkaline Phosphatase Troponin I High Sens < 2.7 Total Protein Albumin Urine Color Urine Appearance Urine pH Ur Specific [place] Urine Protein Urine Glucose (UA) Urine Ketones Urine Blood Urine Nitrite Ur Leukocyte Esterase Urine RBC Urine WBC Ur Squamous Epith Cells Urine Bacteria Hyaline Casts Imaging Radiologist's Impressions: Impressions Chest X-Ray 10/30/22 16:21 IMPRESSION: No acute pulmonary disease. Abdomen/Pelvis CT 10/30/22 17:36 IMPRESSION: No acute finding. Head CT 10/30/22 17:36 IMPRESSION: No acute intracranial abnormality. Specifically, no CT evidence of acute intracranial hemorrhage, significant mass effect, hydrocephalus, or large territorial infarction. Assessment and Plan (1) Syncope: Status: Acute (2) Hypoglycemia: Status: Acute Plan 67-year-old female with past medical history of diabetes recently increased Trulicity dose, GERD, HTN, HLD, presents to hospital with syncopal episode # syncope - likely secondary to hypoglycemia - was hypoglycemic on arrival of EMS, patient also reports that her glucose levels have been up and down with multiple episodes of hypoglycemia at home - no evidence of seizures, cardiac reason less likely - will monitor on observation - hold anti hyperglycemics at this time - continue monitoring glucose # hypoglycemia - possibly multifactorial, patient on metformin, also Trulicity was increased recently, as well as she takes pre meal insulin - will hold off oral antihyperglycemics at this time - will add hemoglobin A1c - patient will likely need outpatient follow-up with records management assistant - monitor glucose level, and adjust insulin accordingly # hypertension - stable - continue antihypertensives # hyperlipidemia - continue statin DVT prophylaxis: Early ambulation Time Spent With Patient Time: Total time managing care of this patient today ____ minutes. Quality Stroke Does the patient have a stroke diagnosis?: No VTE Prior VTE?: No VTE Risk Level:: Medical - low VTE Device Contraindication: Treatment Not Indicated VTE Drug Contraindication: Treatment Not Indicated
[2022-10-31 06:50] LABS: Anion Gap 15 (12-20); Blood Urea Nitrogen 14 mg/dL (9-16); Calcium 9.3 mg/dL (8.4-10.2); Carbon Dioxide 22 mmol/L (22-29); Chloride 107 mmol/L (96-108); Creatinine Clr Calc Pharmacy 86.2; Estimated Glomerular Filt Rate > 60; Glucose Random 132 mg/dL (60-115); Potassium 4.8 mmol/L (3.3-5.1); Sodium 139 mmol/L (135-145)
[2022-10-31 07:10] LABS: Platelet Count 232 X10*3/uL (160-400); SLIDE REVIEW VERIFIED
[2022-10-31 08:06] LABS: Estimated Average Glucose 134 mg/dL; Hemoglobin A1c % 6.3 %
[2022-10-31 08:10] LABS: Glucose, Whole Blood 144 mg/dL (60-115)
--- NOTE | 2022-10-31 08:50 | PC.NURSE ---
pt seen by dr. ashley, pt aware of plan of care.
--- NOTE | 2022-10-31 09:00 | PHA.MEDREC ---
Pharmacy Consult ? Medication Reconciliation Pharmacy has completed the medication reconciliation. Pt was only able to independently list a few meds but when I read claim history she was able to confirm meds and doses. She clarified that she was taking 4.5 mg trulicity as of last week (dose increase) and her basaglar is 34 units bid.
[2022-10-31] MEDS: 0.9 % Sodium Chloride Flush 3 ML SYRINGE IVFLUSH ×3 (09:57→19:35)
--- NOTE | 2022-10-31 09:57 | PC.NURSE ---
pt is a/o x 4 no sob/charlene noted speaks in full sentences. pt is at bedside. lungs - cta. heart sounds - regular. abd soft and non-tender. bx + x 4 quads. no edema noted. pt/ aware of plan of care.
[2022-10-31] MEDS: Sulfamethox/Trimeth 800/160 TABLET 1 TAB PO ×2 (10:45→22:44)
[2022-10-31 11:47] LABS: Glucose, Whole Blood 240 mg/dL (60-115)
[2022-10-31] MEDS: Insulin Lispro 100 UNIT/ML 3 ML VIAL SUBCUT ×2 (12:16→20:52)
--- NOTE | 2022-10-31 12:34 | HO.PM.IMPN ---
Subjective Subjective Date of Service: 10/31/22 Interval History: hypoglycemia Review of Systems seems improving denies any chest pain or shortness of breath or abdominal pain or palpitations Denies any new episode of syncope. Physical Exam Vital Signs: Vital Signs: Last Vital Signs Temp 97.5 F 10/31/22 11:47 Pulse 83 10/31/22 11:47 Resp 16 10/31/22 11:47 BP 145/65 H 10/31/22 11:47 Pulse Ox 92 10/31/22 11:47 O2 Del Method Room Air 10/31/22 11:47 BMI result Body Mass Index 42.9 Appearance: Alert.? Oriented X3.? not in distress.? cvs: rrr, [id number] . res: clear to auscultation ,no rhonchii or wheezing abd: no rebound or guarding ,nt, bs present. ext pulses present , no cyanosis. neuro: axo3 , nonfocal. Objective Data Active Medications Acetaminophen (Acetaminophen 325 Mg Tablet) 650 mg PO Q6H PRN PRN Reason: Pain, Mild (Pain Scale 1-3) Glucose (Glucose Gel 15 Gm Gel..Gram.) 15 gm PO Q15M PRN; Protocol PRN Reason: per Hypoglycemia Standing Ord. Dextrose (D10) 250 mls @ 750 mls/hr IV Q15M PRN; Protocol PRN Reason: per Hypoglycemia Standing Ord. Insulin Human Lispro (Insulin Lispro 100 Unit/Ml 3 Ml Vial) 0 unit SUBCUT QIDACHS [facility]; Protocol Last Admin: 10/31/22 12:16 Dose: 4 unit Documented By: JAME Ondansetron HCl (Ondansetron Hcl 4 Mg/2 Ml Vial) 4 mg IVPUSH Q8H PRN PRN Reason: Nausea and Vomiting Pharmacy Consult (Consult Rx Perform Med Rec) 1 each MISCELLANE ONCE PRN PRN Reason: Consult order Sodium Chloride (0.9 % Sodium Chloride Flush 3 Ml Syringe) 3 ml IVFLUSH QSHIFT [facility] Last Admin: 10/31/22 09:57 Dose: 3 ml Documented By: CLOVER Trimethoprim/Sulfamethoxazole (Sulfamethox/Trimeth 800/160 Tablet) 1 tab PO Q12H [facility] Last Admin: 10/31/22 10:45 Dose: 1 tab Documented By: CLOVER Labs 10/31/22 06:20 10/31/22 06:20 Labs: Laboratory Results - last 24 hr 10/30/22 10/30/22 10/30/22 15:59 16:36 16:36 MCV 86.7 MCH 28.6 MCHC 33.0 RDW 13.9 Plt Count 275 MPV 10.9 Immature Gran % (Auto) 0.5 H Neut % (Auto) 67.0 Lymph % (Auto) 20.2 [place] % (Auto) 8.5 Eos % (Auto) 2.9 Baso % (Auto) 0.9 Lymph # (Auto) 2.9 [place] # (Auto) 1.2 Eos # (Auto) 0.4 Baso # (Auto) 0.1 Abs Immat Gran (auto) 0.08 H Absolute Neuts (auto) 9.8 H Absolute Nucleated RBC 0.000 Nucleated RBC % (auto) 0.0 Smear Tech's Comments PT INR Anion Gap 18 Estim Creat Clear Calc 75.3 Estimated GFR > 60 POC Glucose Random Glucose 106 Estimat Average Glucose Hemoglobin A1c % Calcium 10.4 H D Magnesium 1.9 Total Bilirubin 0.4 Direct Bilirubin 0.1 AST 17 ALT 22 Alkaline Phosphatase 95 Troponin I High Sens 2.7 Total Protein 7.2 Albumin 4.3 Urine Color Urine Appearance Urine pH Ur Specific [place] Urine Protein Urine Glucose (UA) Urine Ketones Urine Blood Urine Nitrite Ur Leukocyte Esterase Urine RBC Urine WBC Ur Squamous Epith Cells Urine Bacteria Hyaline Casts 10/30/22 10/30/22 10/30/22 16:36 16:43 18:22 MCV MCH MCHC RDW Plt Count MPV Immature Gran % (Auto) Neut % (Auto) Lymph % (Auto) [place] % (Auto) Eos % (Auto) Baso % (Auto) Lymph # (Auto) [place] # (Auto) Eos # (Auto) Baso # (Auto) Abs Immat Gran (auto) Absolute Neuts (auto) Absolute Nucleated RBC Nucleated RBC % (auto) Smear Tech's Comments PT 11.6 INR 1.0 Anion Gap Estim Creat Clear Calc Estimated GFR POC Glucose 110 Random Glucose Estimat Average Glucose Hemoglobin A1c % Calcium Magnesium Total Bilirubin Direct Bilirubin AST ALT Alkaline Phosphatase Troponin I High Sens Total Protein Albumin Urine Color Yellow Urine Appearance Clear Urine pH 6.0 Ur Specific [place] 1.020 Urine Protein 30 (1+) H Urine Glucose (UA) Negative Urine Ketones Trace Urine Blood Negative Urine Nitrite Negative Ur Leukocyte Esterase Trace H Urine RBC 3-5 H Urine WBC 0-5 Ur Squamous Epith Cells 11-20 Urine Bacteria Trace Hyaline Casts >20 10/30/22 10/31/22 10/31/22 19:49 06:20 06:20 MCV 86.4 MCH 29.3 MCHC 33.9 RDW 13.8 Plt Count 232 MPV Not Reportable Immature Gran % (Auto) 0.6 H Neut % (Auto) 55.2 Lymph % (Auto) 30.0 [place] % (Auto) 9.5 Eos % (Auto) 3.6 Baso % (Auto) 1.1 Lymph # (Auto) 3.4 [place] # (Auto) 1.1 Eos # (Auto) 0.4 Baso # (Auto) 0.1 Abs Immat Gran (auto) 0.07 H Absolute Neuts (auto) 6.3 Absolute Nucleated RBC 0.000 Nucleated RBC % (auto) 0.0 Smear Tech's Comments VERIFIED PT INR Anion Gap 15 Estim Creat Clear Calc 86.2 Estimated GFR > 60 POC Glucose Random Glucose 132 H Estimat Average Glucose Hemoglobin A1c % Calcium 9.3 D Magnesium Total Bilirubin Direct Bilirubin AST ALT Alkaline Phosphatase Troponin I High Sens < 2.7 Total Protein Albumin Urine Color Urine Appearance Urine pH Ur Specific [place] Urine Protein Urine Glucose (UA) Urine Ketones Urine Blood Urine Nitrite Ur Leukocyte Esterase Urine RBC Urine WBC Ur Squamous Epith Cells Urine Bacteria Hyaline Casts 10/31/22 10/31/22 10/31/22 07:16 07:39 11:38 MCV MCH MCHC RDW Plt Count MPV Immature Gran % (Auto) Neut % (Auto) Lymph % (Auto) [place] % (Auto) Eos % (Auto) Baso % (Auto) Lymph # (Auto) [place] # (Auto) Eos # (Auto) Baso # (Auto) Abs Immat Gran (auto) Absolute Neuts (auto) Absolute Nucleated RBC Nucleated RBC % (auto) Smear Tech's Comments PT INR Anion Gap Estim Creat Clear Calc Estimated GFR POC Glucose 144 H 240 H Random Glucose Estimat Average Glucose 134 Hemoglobin A1c % 6.3 Calcium Magnesium Total Bilirubin Direct Bilirubin AST ALT Alkaline Phosphatase Troponin I High Sens Total Protein Albumin Urine Color Urine Appearance Urine pH Ur Specific [place] Urine Protein Urine Glucose (UA) Urine Ketones Urine Blood Urine Nitrite Ur Leukocyte Esterase Urine RBC Urine WBC Ur Squamous Epith Cells Urine Bacteria Hyaline Casts Assessment and Plan (1) Syncope: Status: Acute (2) Hypoglycemia: Status: Acute Plan 67-year-old female with past medical history of diabetes recently increased Trulicity dose, GERD, HTN, HLD, presents to hospital with syncopal episode syncope- thought to be likely secondary to hypoglycemia - was hypoglycemic on arrival of EMS, patient also reports that her glucose levels have been up and down with multiple episodes of hypoglycemia at home - no evidence of seizures, cardiac reason less likely monitor on observation,hold anti hyperglycemics ,continue monitoring glucose hypoglycemia- possibly multifactorial, patient on metformin, also Trulicity was increased recently, as well as she takes pre meal insulin - will hold off oral antihyperglycemics at this time hemoglobin A1c - patient will likely need outpatient follow-up with technical communicator - monitor glucose level, and adjust insulin accordingly hypertension- stable - continue antihypertensives hyperlipidemia- continue statin DVT prophylaxis:? Early ambulation inaptient need : moniter for hypoglycemia,syncope ,tele Time Spent With Patient Time: Total time managing care of this patient today ____ minutes. Quality Stroke Does the patient have a stroke diagnosis?: No VTE Prior VTE?: No VTE Risk Level:: Medical - low VTE Device Contraindication: Treatment Not Indicated VTE Drug Contraindication: Treatment Not Indicated
--- NOTE | 2022-10-31 13:46 | MHC.CM.ED ---
PT DECLINED TO SIGN IBRAHIM 10/31/22, STATED SHE IS NOT OBS BUT INPATIENT. PT FROM HOME LIVES W/ , USES CANE/WALKER, NO PREVIOUS SERVICES. PT TO TRANSPORT. NO HCP ON FILE, EDUCATED/OFFERED ASSISTANCE, PT DECLINED. PCP: FLAVIA BOLDEN VAX: X 4 MODERNA.
[2022-10-31] MEDS: Meclizine HCl 25 MG TABLET PO (14:09)
--- NOTE | 2022-10-31 15:42 | PC.NURSE ---
rn to rn report given to miriam. pt/ aware of plan of care for transfer to room 371.
[2022-10-31] MEDS: Omeprazole 20 MG CAPSULE.DR PO (16:23)
[2022-10-31] MEDS: polyethylene glycoL 3350 17 GM POWD.PACK PO (16:24)
[2022-10-31 16:52] LABS: Glucose, Whole Blood 147 mg/dL (60-115)
[2022-10-31 20:02] LABS: Glucose, Whole Blood 188 mg/dL (60-115)
[2022-10-31] MEDS: Atorvastatin Calcium 40 MG TABLET PO (20:52)
[2022-10-31] MEDS: Docusate Sodium 100 MG CAPSULE PO (20:52)
[2022-11-01] VITALS (7 sets, daily range): BP systolic 129–151; BP diastolic 58–70; PULSE 75–78; RESP 16–20; TEMP 36.1–36.9; O2SAT 92–98
[2022-11-01] MEDS: ondansetron HCL 4 MG/2 ML VIAL IVPUSH ×3 (03:51→22:09)
[2022-11-01] MEDS: Omeprazole 20 MG CAPSULE.DR PO ×2 (06:29→17:02)
[2022-11-01 07:29] LABS: Glucose, Whole Blood 182 mg/dL (60-115)
[2022-11-01] MEDS: Valsartan 160 MG TABLET PO (08:46)
[2022-11-01] MEDS: Furosemide 20 MG TABLET PO (08:46)
[2022-11-01] MEDS: Insulin Lispro 100 UNIT/ML 3 ML VIAL SUBCUT ×4 (08:46→22:08)
[2022-11-01] MEDS: Aspirin Enteric Coated 81 MG TABLET.DR PO (08:46)
[2022-11-01] MEDS: Sulfamethox/Trimeth 800/160 TABLET 1 TAB PO ×2 (08:46→22:08)
[2022-11-01] MEDS: amLODIPine Besylate 10 MG TABLET PO (08:46)
[2022-11-01] MEDS: polyethylene glycoL 3350 17 GM POWD.PACK PO (08:47)
[2022-11-01] MEDS: 0.9 % Sodium Chloride Flush 3 ML SYRINGE IVFLUSH ×3 (08:49→22:09)
--- NOTE | 2022-11-01 10:29 | P.DS_ITS ---
DS: Providers Provider Date of Service: 11/03/22 Date of admission: 10/30/22 21:11 Primary care physician: Cathleen Sanchez NP DS: Diagnosis Discharge Diagnosis (1) Syncope: Status: Resolved (2) Hypoglycemia: Status: Resolved DS: Summary Hospital Course Hospital Course: Chief Complaint: syncope 67-year-old female past medical history of HTN, HLD, diabetes, GERD, asthma, who presents to the hospital after a syncopal episode.? Patient reports that she was at a birthday libertarian, she got up to get some food, she felt clammy, diaphoretic, felt very weak, and passed out.? This lasted few minutes, on arrival of EMS patient was found to have a glucose of 76.? Patient reports that she has been having a unpredictable sugar readings with her glucose going up and down but has had multiple episodes of hypoglycemia in the past few days.? Patient reports that that morning she woke up with a glucose in the 60s, also pre lunch she was in the 60s, she ate some food with 8 improving to 130s, but she did not get a chance to check her glucose at the libertarian.? She did feel dizzy during the libertarian as well. She denies any stroke-like symptoms.? States that her Trulicity was increased about a week ago. Denies any palpitations, no chest pain, no head trauma, no headache or change in vision, no urinary symptoms and no lower extremity edema.? On arrival to the ED patient hemodynamically stable with no significant abnormal vitals Labs are significant for WBC count of 14.6, appears to be chronically elevated Glucose of 106 on arrival, troponin negative, UA positive for leukocyte Estrace, WBC, some bacteria Hospital course: Patient presented with a syncopal episode workup with ECG, head CT has been unremarkable, cardiac monitoring has not shown arrythmia. The only finding was glucose of 76 associated with which the patient was complaint about feeling clammy, diaphoretic and very weak and apparently her sugars level has been fluctuating. She has also been complain about vertigo there responded to meclizine in the emergency room. Over the course of hospitalization her Lantus which he takes 34 units twice a day has been discontinue and continued on sliding scale insulin it is also of note that she is on Trulicity once weekly at home. She was seen by Neurology with recommendation for Trulicity to be reduce, additionally I have decrease lantus to from 34 bid to just 15 bid and should follow with PCP for further adjustment as needed. She is now feeling better., No further episode of dizziness, no arrythmia. She has been see by PT with recommendation for home services. Time Spent with Patient Time attestation: Total time managing care of this patient today ____ minutes. Discharge coordination time: Greater than 30 minutes Quality: Safe Use of Opioids Does Pt have an Active Cancer Diagnosis on the Problem List?: No Quality: Stroke Does the patient have a stroke diagnosis?: No Physical Exam Vital Signs: Vital Signs: Last Vital Signs Temp 97 F 11/01/22 07:12 Pulse 78 11/01/22 07:12 Resp 20 11/01/22 07:12 BP 132/60 11/01/22 07:12 Pulse Ox 95 11/01/22 07:12 O2 Del Method Room Air 11/01/22 07:12 BMI result Body Mass Index 44.0 DS: Data Data Completed and Pending Labs on day of discharge: Laboratory Results - last 24 hr 10/31/22 10/31/22 10/31/22 11:38 16:47 19:50 POC Glucose 240 H 147 H 188 H 11/01/22 07:25 POC Glucose 182 H Discharge Plan Discharge Anticipated Discharge Date/Time: 11/01/22 10:22 Patient Disposition: Home Health Service Discharge Diagnosis: Syncope, hypoglycemia, vertigo Referrals: Anjelica IZQUIERDO [Outside] - 1 Week Cathleen Sanchez [facility] [Primary Care Provider] - 1 Week Discharge Medications: Continued metformin 1,000 mg tablet 1 tab PO DAILY@0630 omeprazole 20 mg capsule,delayed release(DR/EC) 1 cap PO BID@0630,1630 irbesartan 300 mg tablet 1 tab PO DAILY amlodipine 10 mg tablet 10 mg PO DAILY Qty: 30 0RF atorvastatin [Lipitor] 40 mg tablet 40 mg PO BEDTIME Qty: 30 0RF oxycodone-acetaminophen [Percocet] 5-325 mg tablet 1 tab PO Q6H PRN (Reason: pain) Qty: 20 0RF cetirizine 10 mg tablet 10 mg PO DAILY PRN (Reason: allergies) furosemide 20 mg tablet 20 mg PO DAILY insulin aspart U-100 [Novolog FlexPen U-100 Insulin] 100 unit/mL (3 mL) insulin pen 1 sliding scale dose SUBCUT QIDACHS aspirin 81 mg Tablet,Delayed Release (Dr/Ec) 81 mg PO DAILY Trulicity 4.5 mg/0.5 mL pen injector 4.5 mg subcut FR cyclobenzaprine 10 mg tablet 10 mg PO Q8H PRN (Reason: Muscle Pain) Rx Instructions: for moderate pain. do not take with methocarbamol albuterol sulfate [ProAir HFA] 90 mcg/actuation HFA aerosol inhaler 2 puff inhalation QID PRN (Reason: Shortness Of Breath Or Wheezing) (DME) FreeStyle Lite Strips Strip See Rx Instructions Not Applicable TID Qty: 10 Rx Instructions: As directed (DME) pen needle, diabetic [BD Ultra-Fine Orig Pen Needle] 29 gauge x 1/2 needle See Rx Instructions .ROUTE .MEDSUPPLY Qty: 100 Rx Instructions: As directed meclizine 25 mg tablet 25 mg PO DAILY PRN (Reason: Vertigo) methocarbamol 500 mg tablet 500 mg PO DAILY PRN (Reason: Muscle Pain) Rx Instructions: for severe pain. do not take with cyclobenzaprine Changed insulin glargine [Basaglar KwikPen U-100 Insulin] 100 unit/mL (3 mL) insulin pen 10 unit subcut BID Qty: 15 0RF No Action cyclobenzaprine 10 mg tablet 10 mg PO TID Qty: 10 0RF naproxen [Naprosyn] 500 mg tablet 500 mg PO BID Qty: 20 0RF Discharge Orders: Discharge Order (Routine); Ordered 11/03/22 Ordered By: Mj Abraham Diet: Diabetic diet Activity on Discharge: As tolerated Stand Alone Forms: Patient Portal Discharge page Care Plan Goals: Full recovery from syncope, vertigo and hypoglycemia. Health Concerns: Hypoglycemia Vertigo Syncope Plan of Treatment: Take insulin as recommend, Insulin Glargine dose decrease from 34 twice daily to 10, Please record all your sugars level, if your sugar continues to go down (60 to 70) please drink juice and recheck in 30 minutes, and informed your PCP, fareed talk to your PCP about possibly adjusting Trulicity if sugars level continue to trend down Checking sugar frequently Follow-up with your doctor within a week Assessment: As above Discharge Date/Time: 11/03/22 15:13
[2022-11-01 11:29] LABS: Glucose, Whole Blood 244 mg/dL (60-115)
[2022-11-01 13:32] LABS: Glucose, Whole Blood 250 mg/dL (60-115)
--- NOTE | 2022-11-01 13:37 | PC.NURSE ---
Pt family member reported pt not feeling well. This Rn entered room pt reports feeling lightheaded, dizzy and nauseous. Vitals taken BP 139/62. P 77 R 18 O2 98 on room air. POC 250. Pt reports ambulating to BR with walker before feeling increasingly lightheaded. Dr Abraham made aware.
[2022-11-01] MEDS: Meclizine HCl 25 MG TABLET PO (14:17)
--- NOTE | 2022-11-01 15:29 | PM.NEUROCN ---
History of Present Illness Data of Consult Service Date: 11/01/22 Primary Care Provider: Cathleen Sanchez NP HPI Reason for consult: Syncope, dizziness This is a 67-year-old female with h/o HTN, HLD, diabetes, GERD, asthma, who presents to the hospital after a syncopal episode.? Patient reports that she was at a birthday green party, she got up to get some food, she felt clammy, diaphoretic, felt very weak, and passed out.? This lasted a few minutes. Her glucose was 76.? Patient reports that she has been having a unpredictable sugar readings with her glucose going up and down and has had multiple episodes of hypoglycemia in the past few days.? That morning she woke up with a glucose in the 60s, also pre lunch she was in the 60s.? She did feel dizzy during the green party as well. She denies any stroke-like symptoms.? States that her Trulicity was increased about a week ago. Denies any palpitations, no chest pain, no head trauma, no headache or change in vision Review of Systems Review of Systems: seems improving denies any chest pain or shortness of breath or abdominal pain or palpitations Denies any new episode of syncope. Yes all other systems are reviewed and are negative PMFSH Past Medical History Medical History Asthma Diabetes Diverticulitis Dizziness GERD (gastroesophageal reflux disease) High cholesterol HTN (hypertension) Small bowel obstruction Family History Family History Sister Diabetes ESRD (end stage renal disease) on dialysis Father CAD (coronary artery disease) Surgical History Surgical History H/O exploratory laparotomy History of bilateral knee replacement History of partial colectomy Status post total abdominal hysterectomy Social History Social History Alcohol intake: never Patient Tobacco Use Status: Never used Tobacco Cigarettes Per Day: 0 service: No Current occupational status: retired Meds Allergies Allergy/AdvReac Type Severity Reaction Status Date / Time diclofenac AdvReac Headache Verified 10/30/22 15:35 demerol Allergy Unknown Unknown Uncoded 09/16/22 01:15 lisinopril Allergy Unknown Unknown Uncoded 09/16/22 01:15 Active Medications: Current Medications Acetaminophen (Acetaminophen 325 Mg Tablet) 650 mg PO Q6H PRN PRN Reason: Pain, Mild (Pain Scale 1-3) Albuterol Sulfate (Albuterol Sulfate 90 Mcg 8 Gm Inhaler) 2 puff INHALE RQID PRN PRN Reason: Shortness Of Breath Or Wheezing Amlodipine Besylate (Amlodipine Besylate 10 Mg Tablet) 10 mg PO DAILY [facility]; Protocol Last Admin: 11/01/22 08:46 Dose: 10 mg Aspirin (Aspirin Enteric Coated 81 Mg Tablet.) 81 mg PO DAILY [facility] Last Admin: 11/01/22 08:46 Dose: 81 mg Atorvastatin Calcium (Atorvastatin Calcium 40 Mg Tablet) 40 mg PO BEDTIME [facility] Last Admin: 10/31/22 20:52 Dose: 40 mg Cyclobenzaprine HCl (Cyclobenzaprine Hcl 10 Mg Tablet) 10 mg PO Q8H PRN PRN Reason: Muscle Pain Docusate Sodium (Docusate Sodium 100 Mg Capsule) 100 mg PO BEDTIME [facility] Last Admin: 10/31/22 20:52 Dose: 100 mg Furosemide (Furosemide 20 Mg Tablet) 20 mg PO DAILY [facility]; Protocol Last Admin: 11/01/22 08:46 Dose: 20 mg Glucose (Glucose Gel 15 Gm Gel..Gram.) 15 gm PO Q15M PRN; Protocol PRN Reason: per Hypoglycemia Standing Ord. Dextrose (D10) 250 mls @ 750 mls/hr IV Q15M PRN; Protocol PRN Reason: per Hypoglycemia Standing Ord. Insulin Human Lispro (Insulin Lispro 100 Unit/Ml 3 Ml Vial) 0 unit SUBCUT QIDACHS [facility]; Protocol Last Admin: 11/01/22 12:16 Dose: 4 unit Loratadine (Loratadine 10 Mg Tablet) 10 mg PO DAILY PRN PRN Reason: allergies Meclizine HCl (Meclizine Hcl 25 Mg Tablet) 25 mg PO DAILY PRN PRN Reason: Vertigo Last Admin: 11/01/22 14:17 Dose: 25 mg Methocarbamol (Methocarbamol 500 Mg Tablet) 500 mg PO DAILY PRN PRN Reason: Muscle Pain Omeprazole (Omeprazole 20 Mg Capsule.) 20 mg PO BID@0630,1630 [facility] Last Admin: 11/01/22 06:29 Dose: 20 mg Ondansetron HCl (Ondansetron Hcl 4 Mg/2 Ml Vial) 4 mg IVPUSH Q8H PRN PRN Reason: Nausea and Vomiting Last Admin: 11/01/22 14:17 Dose: 4 mg Oxycodone HCl (Oxycodone Hcl Immed Release 5 Mg Tablet) 1 mg PO Q6H PRN PRN Reason: pain Pharmacy Consult (Consult Rx Perform Med Rec) 1 each MISCELLANE ONCE PRN PRN Reason: Consult order Polyethylene Glycol (Polyethylene Glycol 3350 17 Gm Powd.Pack) 17 gm PO DAILY [facility] Last Admin: 11/01/22 08:47 Dose: 17 gm Sodium Chloride (0.9 % Sodium Chloride Flush 3 Ml Syringe) 3 ml IVFLUSH QSHIFT [facility] Last Admin: 11/01/22 08:49 Dose: 3 ml Trimethoprim/Sulfamethoxazole (Sulfamethox/Trimeth 800/160 Tablet) 1 tab PO BID [facility] Last Admin: 11/01/22 08:46 Dose: 1 tab Valsartan (Valsartan 160 Mg Tablet) 160 mg PO DAILY [facility] Last Admin: 11/01/22 08:46 Dose: 160 mg Home Medications Medication Instructions Recorded Confirmed Last Taken Type insulin glargine 100 unit/mL (3 34 unit subcut BID 05/10/20 10/31/22 Unknown History mL) subcutaneous pen (Basaglar KwikPen U-100 Insulin) irbesartan 300 mg tablet 1 tab PO DAILY 05/10/20 10/31/22 10/30/22 History metformin 1,000 mg tablet 1 tab PO DAILY@0630 05/10/20 10/31/22 10/30/22 History omeprazole 20 mg capsule,delayed 1 cap PO BID@0630,1630 05/10/20 10/31/22 10/30/22 History release albuterol sulfate 90 mcg/actuation 2 puff inhalation QID PRN 11/26/21 10/31/22 10/30/22 History aerosol inhaler (ProAir HFA) Shortness Of Breath Or Wheezing blood sugar diagnostic (Mary #10 ea 11/26/21 11/26/21 Unknown History Lite Strips) meclizine 25 mg tablet 25 mg PO DAILY PRN Vertigo 11/26/21 10/31/22 Unknown History methocarbamol 500 mg tablet 500 mg PO DAILY PRN Muscle Pain 11/26/21 10/31/22 Unknown History pen needle, diabetic 29 gauge x #100 ea 11/26/21 11/26/21 Unknown History 1/2 (BD Ultra-Fine Original Pen Needle) aspirin 81 mg tablet,delayed 81 mg PO DAILY 10/31/22 10/31/22 10/30/22 History release cetirizine 10 mg tablet 10 mg PO DAILY PRN allergies 10/31/22 10/31/22 10/30/22 History cyclobenzaprine 10 mg tablet 10 mg PO Q8H PRN Muscle Pain 10/31/22 10/31/22 10/29/22 History dulaglutide 4.5 mg/0.5 mL 4.5 mg subcut FR 10/31/22 10/31/22 10/28/22 History subcutaneous pen injector (Trulicity) furosemide 20 mg tablet 20 mg PO DAILY 10/31/22 10/31/22 10/30/22 History insulin aspart U-100 100 unit/mL 1 sliding scale dose subcut QIDACHS 10/31/22 10/31/22 10/30/22 History (3 mL) subcutaneous pen (Novolog FlexPen U-100 Insulin aspart) Physical Exam Vital Signs: Vital Signs: Last Vital Signs Temp 97 F 11/01/22 15:09 Pulse 75 11/01/22 15:09 Resp 20 11/01/22 15:09 BP 129/58 L 11/01/22 15:09 Pulse Ox 92 11/01/22 15:09 O2 Del Method Room Air 11/01/22 15:09 BMI result Body Mass Index 44.0 Const: General: cooperative, healthy appearing, comfortable and no acute distress Orientation/consciousness: oriented to person, oriented to place, oriented to time and patient oriented x3 HEENT: Head: Yes normal to inspection, Yes No palpable skull fracture present, Yes normocephalic, Yes atraumatic and No abrasion Ears: hearing grossly normal bilaterally and external ears normal Throat: Yes posterior oropharynx normal, Yes tonsils normal and Yes uvula midline Eyes: Other: horizontal nystagmus to the right. When patient was being placed flat she felt dizzy. General: appearance normal, both eyes and all related structures Pupils: Equal, round and reactive pupils present Neck: Neck: Yes normal visual inspection, Yes full ROM, Yes no lymphadenopathy, Yes no meningeal signs, Yes trachea midline, Yes supple, No anterior neck swelling and No tender Chest: Chest palpation & inspection: normal inspection of the chest and normal palpation of entire chest wall Resp: Effort & Inspection: normal respiratory effort and able to speak in complete sentences Auscultation: clear to auscultation bilaterally Cardio: Jugular venous distension: no JVD Rate: regular rate Rhythm: regular rhythm Heart sounds: S1 normal heart sound present and S2 normal heart sound present GI: Inspection: Yes normal to inspection and No abdominal wall ecchymosis Palpation (GI): Soft to palpation, not firm, nontender, no guarding and not rigid Auscultation: normal bowel sounds : General: No CVA tenderness and Yes no CVA tenderness Back/Spine/Pelvis: Back: no CVA tenderness, No CVA tenderness and No back tenderness Skin: General skin exam: no rashes or lesions noted and elasticity normal Neuro: Other: Normal non focal neuro exam. General: oriented to person, oriented to place, oriented to time, patient oriented x3, gait normal, tone normal, moves all extremities, Normal light touch and pain sensation, no meningeal signs, no focal motor deficits, CN's II-XI intact bilaterally and normal sensation to monofilament Cranial nerves: Yes Equal, round and reactive pupils present Cognition (Neuro): normal cognition Extrem: Other: negative pitting edmea, calf tenderness, swelling. General: Yes normal to inspection, Yes full ROM and Yes no pedal edema Psych: Appearance: grossly normal, well kempt and not disheveled Results Labs 10/31/22 06:20 10/31/22 06:20 Microbiology Microbiology Results: Microbiology 10/31/22 11:01 Urine clean catch - Clean Catch Midstream Urine Culture - Preliminary Culture too young to evaluate. Assessment and Plan (1) Syncope: Status: Acute Possible related to hypoglycemia. r/o arrhythmia, orthostatic hypotension Recom. Cardiac monitoring. Orthostatic BP .Reduce Trulicity dose. for periods of hypoglycemia (2) Hypoglycemia: Status: Acute Plan 67-year-old female with past medical history of diabetes recently increased Trulicity dose, GERD, HTN, HLD, presents to hospital with syncopal episode syncope- thought to be likely secondary to hypoglycemia - was hypoglycemic on arrival of EMS, patient also reports that her glucose levels have been up and down with multiple episodes of hypoglycemia at home - no evidence of seizures, cardiac reason less likely monitor on observation,hold anti hyperglycemics ,continue monitoring glucose hypoglycemia- possibly multifactorial, patient on metformin, also Trulicity was increased recently, as well as she takes pre meal insulin - will hold off oral antihyperglycemics at this time hemoglobin A1c - patient will likely need 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 Early ambulation inaptient need : moniter for hypoglycemia,syncope ,tele Time Spent With Patient Time: Total time managing care of this patient today ____ minutes. Procedures Date of Service Date of Service: 11/01/22
[2022-11-01 16:16] LABS: Glucose, Whole Blood 279 mg/dL (60-115)
--- NOTE | 2022-11-01 18:50 | HO.PM.IMPN ---
Subjective Subjective Date of Service: 11/01/22 Interval History: f/u on dizziness, ? syncope, hypoglycemia interval history: c/o dizziness, umspecified, no syncope in the hosptial Physical Exam Vital Signs: Vital Signs: Last Vital Signs Temp 97 F 11/01/22 15:09 Pulse 75 11/01/22 15:09 Resp 20 11/01/22 15:09 BP 129/58 L 11/01/22 15:09 Pulse Ox 92 11/01/22 15:09 O2 Del Method Room Air 11/01/22 15:09 BMI result Body Mass Index 44.0 Const: Other: General: AO X 3, no acute distress Resp: CTA bilateral CVS: S1,S2,RRR GI: +BS, NT, no distention Skin: No rash Neuro: motor grossly intact Psych: appropriate affect Objective Data Active Medications Acetaminophen (Acetaminophen 325 Mg Tablet) 650 mg PO Q6H PRN PRN Reason: Pain, Mild (Pain Scale 1-3) Albuterol Sulfate (Albuterol Sulfate 90 Mcg 8 Gm Inhaler) 2 puff INHALE RQID PRN PRN Reason: Shortness Of Breath Or Wheezing Amlodipine Besylate (Amlodipine Besylate 10 Mg Tablet) 10 mg PO DAILY [facility]; Protocol Last Admin: 11/01/22 08:46 Dose: 10 mg Documented By: RADHA Aspirin (Aspirin Enteric Coated 81 Mg Tablet.) 81 mg PO DAILY [facility] Last Admin: 11/01/22 08:46 Dose: 81 mg Documented By: RADHA Atorvastatin Calcium (Atorvastatin Calcium 40 Mg Tablet) 40 mg PO BEDTIME [facility] Last Admin: 10/31/22 20:52 Dose: 40 mg Documented By: NABEEL Cyclobenzaprine HCl (Cyclobenzaprine Hcl 10 Mg Tablet) 10 mg PO Q8H PRN PRN Reason: Muscle Pain Docusate Sodium (Docusate Sodium 100 Mg Capsule) 100 mg PO BEDTIME [facility] Last Admin: 10/31/22 20:52 Dose: 100 mg Documented By: NABEEL Furosemide (Furosemide 20 Mg Tablet) 20 mg PO DAILY [facility]; Protocol Last Admin: 11/01/22 08:46 Dose: 20 mg Documented By: RADHA Glucose (Glucose Gel 15 Gm Gel..Gram.) 15 gm PO Q15M PRN; Protocol PRN Reason: per Hypoglycemia Standing Ord. Dextrose (D10) 250 mls @ 750 mls/hr IV Q15M PRN; Protocol PRN Reason: per Hypoglycemia Standing Ord. Insulin Human Lispro (Insulin Lispro 100 Unit/Ml 3 Ml Vial) 0 unit SUBCUT QIDACHS [facility]; Protocol Last Admin: 11/01/22 17:02 Dose: 6 unit Documented By: RADHA Loratadine (Loratadine 10 Mg Tablet) 10 mg PO DAILY PRN PRN Reason: allergies Meclizine HCl (Meclizine Hcl 25 Mg Tablet) 25 mg PO DAILY PRN PRN Reason: Vertigo Last Admin: 11/01/22 14:17 Dose: 25 mg Documented By: RADHA Methocarbamol (Methocarbamol 500 Mg Tablet) 500 mg PO DAILY PRN PRN Reason: Muscle Pain Omeprazole (Omeprazole 20 Mg Capsule.Dr) 20 mg PO BID@0630,1630 [facility] Last Admin: 11/01/22 17:02 Dose: 20 mg Documented By: RADHA Ondansetron HCl (Ondansetron Hcl 4 Mg/2 Ml Vial) 4 mg IVPUSH Q8H PRN PRN Reason: Nausea and Vomiting Last Admin: 11/01/22 14:17 Dose: 4 mg Documented By: RADHA Oxycodone HCl (Oxycodone Hcl Immed Release 5 Mg Tablet) 1 mg PO Q6H PRN PRN Reason: pain Pharmacy Consult (Consult Rx Perform Med Rec) 1 each MISCELLANE ONCE PRN PRN Reason: Consult order Polyethylene Glycol (Polyethylene Glycol 3350 17 Gm Powd.Pack) 17 gm PO DAILY [facility] Last Admin: 11/01/22 08:47 Dose: 17 gm Documented By: RADHA Sodium Chloride (0.9 % Sodium Chloride Flush 3 Ml Syringe) 3 ml IVFLUSH QSHIFT [facility] Last Admin: 11/01/22 17:03 Dose: 3 ml Documented By: RADHA Trimethoprim/Sulfamethoxazole (Sulfamethox/Trimeth 800/160 Tablet) 1 tab PO BID [facility] Last Admin: 11/01/22 08:46 Dose: 1 tab Documented By: RADHA Valsartan (Valsartan 160 Mg Tablet) 160 mg PO DAILY [facility] Last Admin: 11/01/22 08:46 Dose: 160 mg Documented By: RADHA Labs 10/31/22 06:20 10/31/22 06:20 Labs: Laboratory Results - last 24 hr 10/31/22 11/01/22 11/01/22 19:50 07:25 11:24 POC Glucose 188 H 182 H 244 H 11/01/22 11/01/22 13:29 16:09 POC Glucose 250 H 279 H Microbiology Microbiology Results: Microbiology 10/31/22 11:01 Urine Culture - Preliminary Urine clean catch - Clean Catch Midstream Culture too young to evaluate. Assessment and Plan (1) Syncope: Status: Acute Assessment and Plan: Possible related to hypoglycemia. r/o arrhythmia, orthostatic hypotension Recom. Cardiac monitoring. Orthostatic BP .Reduce Trulicity dose. for periods of hypoglycemia Plan 67-year-old female with past medical history of diabetes recently increased Trulicity dose, GERD, HTN, HLD, presents to hospital with syncopal episode syncope- thought to be likely secondary to hypoglycemia, however rule out arrythmia, monitor on cement sack breaker overnight hypoglycemia- none seen in the hospital, will reduce meds at discharge hypertension- stable - continue antihypertensives hyperlipidemia- continue statin DVT prophylaxis:? Early ambulation inaptient need : moniter for hypoglycemia,syncope ,tele discharge in the morning Time Spent With Patient Time: Total time managing care of this patient today ____ minutes. Quality Stroke Does the patient have a stroke diagnosis?: No VTE Prior VTE?: No VTE Risk Level:: Medical - low VTE Device Contraindication: Treatment Not Indicated VTE Drug Contraindication: Treatment Not Indicated
[2022-11-01 20:26] LABS: Glucose, Whole Blood 225 mg/dL (60-115)
[2022-11-01] MEDS: bisacodyL 10 MG SUPP.RECT PR (20:53)
[2022-11-01] MEDS: Atorvastatin Calcium 40 MG TABLET PO (22:08)
[2022-11-01] MEDS: Docusate Sodium 100 MG CAPSULE PO (22:08)
[2022-11-02] VITALS (9 sets, daily range): BP systolic 133–150; BP diastolic 60–72; PULSE 70–84; RESP 16–20; TEMP 36.2–37.1; O2SAT 93–96
[2022-11-02] MEDS: Omeprazole 20 MG CAPSULE.DR PO ×2 (06:15→15:47)
[2022-11-02] MEDS: ondansetron HCL 4 MG/2 ML VIAL IVPUSH (06:31)
[2022-11-02 07:32] LABS: Glucose, Whole Blood 236 mg/dL (60-115)
[2022-11-02] MEDS: Insulin Lispro 100 UNIT/ML 3 ML VIAL SUBCUT ×4 (07:47→21:06)
[2022-11-02] MEDS: Valsartan 160 MG TABLET PO (07:48)
[2022-11-02] MEDS: amLODIPine Besylate 10 MG TABLET PO (07:48)
[2022-11-02] MEDS: Sulfamethox/Trimeth 800/160 TABLET 1 TAB PO ×2 (07:48→21:06)
[2022-11-02] MEDS: Furosemide 20 MG TABLET PO (07:48)
[2022-11-02] MEDS: Aspirin Enteric Coated 81 MG TABLET.DR PO (07:48)
[2022-11-02] MEDS: 0.9 % Sodium Chloride Flush 3 ML SYRINGE IVFLUSH ×3 (07:49→21:07)
--- NOTE | 2022-11-02 10:37 | HO.PM.IMPN ---
Subjective Subjective Date of Service: 11/02/22 Interval History: f/u on dizziness, ? syncope, hypoglycemia interval history: stil with c/o non specific dizziness, knee pain, l Physical Exam Vital Signs: Vital Signs: Last Vital Signs Temp 97.8 F 11/02/22 07:29 Pulse 70 11/02/22 07:29 Resp 18 11/02/22 07:29 BP 141/66 H 11/02/22 07:29 Pulse Ox 94 11/02/22 07:29 O2 Del Method Room Air 11/02/22 07:29 BMI result Body Mass Index 44.0 Const: Other: General: AO X 3, no acute distress Resp: CTA bilateral CVS: S1,S2,RRR GI: +BS, NT, no distention Skin: No rash Neuro: motor grossly intact Psych: appropriate affect Objective Data Active Medications Acetaminophen (Acetaminophen 325 Mg Tablet) 650 mg PO Q6H PRN PRN Reason: Pain, Mild (Pain Scale 1-3) Albuterol Sulfate (Albuterol Sulfate 90 Mcg 8 Gm Inhaler) 2 puff INHALE RQID PRN PRN Reason: Shortness Of Breath Or Wheezing Amlodipine Besylate (Amlodipine Besylate 10 Mg Tablet) 10 mg PO DAILY [facility]; Protocol Last Admin: 11/02/22 07:48 Dose: 10 mg Documented By: JAMESON Aspirin (Aspirin Enteric Coated 81 Mg Tablet.Dr) 81 mg PO DAILY [facility] Last Admin: 11/02/22 07:48 Dose: 81 mg Documented By: JAMESON Atorvastatin Calcium (Atorvastatin Calcium 40 Mg Tablet) 40 mg PO BEDTIME [facility] Last Admin: 11/01/22 22:08 Dose: 40 mg Documented By: DEBRA Cyclobenzaprine HCl (Cyclobenzaprine Hcl 10 Mg Tablet) 10 mg PO Q8H PRN PRN Reason: Muscle Pain Docusate Sodium (Docusate Sodium 100 Mg Capsule) 100 mg PO BEDTIME [facility] Last Admin: 11/01/22 22:08 Dose: 100 mg Documented By: DEBRA Furosemide (Furosemide 20 Mg Tablet) 20 mg PO DAILY [facility]; Protocol Last Admin: 11/02/22 07:48 Dose: 20 mg Documented By: JAMESON Glucose (Glucose Gel 15 Gm Gel..Gram.) 15 gm PO Q15M PRN; Protocol PRN Reason: per Hypoglycemia Standing Ord. Dextrose (D10) 250 mls @ 750 mls/hr IV Q15M PRN; Protocol PRN Reason: per Hypoglycemia Standing Ord. Insulin Human Lispro (Insulin Lispro 100 Unit/Ml 3 Ml Vial) 0 unit SUBCUT QIDACHS [facility]; Protocol Last Admin: 11/02/22 07:47 Dose: 4 unit Documented By: JAMESON Loratadine (Loratadine 10 Mg Tablet) 10 mg PO DAILY PRN PRN Reason: allergies Meclizine HCl (Meclizine Hcl 25 Mg Tablet) 25 mg PO DAILY PRN PRN Reason: Vertigo Last Admin: 11/01/22 14:17 Dose: 25 mg Documented By: RADHA Methocarbamol (Methocarbamol 500 Mg Tablet) 500 mg PO DAILY PRN PRN Reason: Muscle Pain Omeprazole (Omeprazole 20 Mg Capsule.Dr) 20 mg PO BID@0630,1630 [facility] Last Admin: 11/02/22 06:15 Dose: 20 mg Documented By: DALTON Ondansetron HCl (Ondansetron Hcl 4 Mg/2 Ml Vial) 4 mg IVPUSH Q8H PRN PRN Reason: Nausea and Vomiting Last Admin: 11/02/22 06:31 Dose: 4 mg Documented By: DEBRA Oxycodone HCl (Oxycodone Hcl Immed Release 5 Mg Tablet) 1 mg PO Q6H PRN PRN Reason: pain Pharmacy Consult (Consult Rx Perform Med Rec) 1 each MISCELLANE ONCE PRN PRN Reason: Consult order Polyethylene Glycol (Polyethylene Glycol 3350 17 Gm Powd.Pack) 17 gm PO DAILY [facility] Last Admin: 11/02/22 07:50 Dose: Not Given Documented By: JAMESON Non-Admin Reason: Patient Refused Sodium Chloride (0.9 % Sodium Chloride Flush 3 Ml Syringe) 3 ml IVFLUSH QSHIFT [facility] Last Admin: 11/02/22 07:49 Dose: 3 ml Documented By: JAMESON Trimethoprim/Sulfamethoxazole (Sulfamethox/Trimeth 800/160 Tablet) 1 tab PO BID [facility] Last Admin: 11/02/22 07:48 Dose: 1 tab Documented By: JAMESON Valsartan (Valsartan 160 Mg Tablet) 160 mg PO DAILY [facility] Last Admin: 11/02/22 07:48 Dose: 160 mg Documented By: JAMESON Labs 10/31/22 06:20 10/31/22 06:20 Labs: Laboratory Results - last 24 hr 11/01/22 11/01/22 11/01/22 11:24 13:29 16:09 POC Glucose 244 H 250 H 279 H 11/01/22 11/02/22 20:13 07:27 POC Glucose 225 H 236 H Microbiology Microbiology Results: Microbiology 10/31/22 11:01 Urine Culture - Final Urine clean catch - Clean Catch Midstream Assessment and Plan (1) Syncope: Status: Acute Assessment and Plan: Possible related to hypoglycemia. r/o arrhythmia, orthostatic hypotension Recom. Cardiac monitoring. Orthostatic BP .Reduce Trulicity dose. for periods of hypoglycemia Plan 67-year-old female with past medical history of diabetes recently increased Trulicity dose, GERD, HTN, HLD, presents to hospital with syncopal episode syncope- thought to be likely secondary to hypoglycemia, no arrythmia on tele, check orthostatic PT to reassess, hypoglycemia- none seen in the hospital, will reduce meds at discharge, decrease trulicity at discharge hypertension- stable - continue antihypertensives hyperlipidemia- continue statin DVT prophylaxis:? Early ambulation inaptient need : moniter for hypoglycemia,syncope ,tele discharge in the morning Time Spent With Patient Time: Total time managing care of this patient today ____ minutes. Quality Stroke Does the patient have a stroke diagnosis?: No VTE Prior VTE?: No VTE Risk Level:: Medical - low VTE Device Contraindication: Treatment Not Indicated VTE Drug Contraindication: Treatment Not Indicated
[2022-11-02 11:25] LABS: Glucose, Whole Blood 232 mg/dL (60-115)
--- NOTE | 2022-11-02 14:46 | MHC.CM.PN ---
No discharge today. PT working with patient for knee pain as well as vertigo. Per PT plan is Outpatient services. Discharge is anticipated tomorow. Patient will provide transportation home.
[2022-11-02] MEDS: Meclizine HCl 25 MG TABLET PO (15:49)
[2022-11-02 16:08] LABS: Glucose, Whole Blood 261 mg/dL (60-115)
[2022-11-02 20:33] LABS: Glucose, Whole Blood 327 mg/dL (60-115)
[2022-11-02] MEDS: Atorvastatin Calcium 40 MG TABLET PO (21:06)
[2022-11-03 03:06] VITALS: BP 160/72; PULSE 84; RESP 16; TEMP 36.6; O2SAT 97
[2022-11-03] MEDS: Omeprazole 20 MG CAPSULE.DR PO (05:47)
[2022-11-03 07:28] VITALS: BP 129/60; PULSE 75; RESP 18; TEMP 36.4; O2SAT 96
[2022-11-03 07:30] LABS: Glucose, Whole Blood 230 mg/dL (60-115)
[2022-11-03] MEDS: Insulin Lispro 100 UNIT/ML 3 ML VIAL SUBCUT ×2 (07:42→12:54)
[2022-11-03] MEDS: Aspirin Enteric Coated 81 MG TABLET.DR PO (07:43)
[2022-11-03] MEDS: Furosemide 20 MG TABLET PO (07:43)
[2022-11-03] MEDS: 0.9 % Sodium Chloride Flush 3 ML SYRINGE IVFLUSH (07:44)
[2022-11-03] MEDS: Valsartan 160 MG TABLET PO (07:44)
[2022-11-03] MEDS: amLODIPine Besylate 10 MG TABLET PO (07:44)
[2022-11-03] MEDS: Sulfamethox/Trimeth 800/160 TABLET 1 TAB PO (07:44)
[2022-11-03 11:54] LABS: Glucose, Whole Blood 263 mg/dL (60-115)
[2022-11-03 12:00] VITALS: BP 121/57; PULSE 80; RESP 18; TEMP 36.4; O2SAT 96
--- NOTE | 2022-11-03 12:49 | MHC.CM.PN ---
Patient is discharged home today. [facility] will provide home services. The MD has approved SOC next week. Another referral was sent ; but they could not start services until sometime next week. Patient has arranged for transportation home.
--- NOTE | 2022-11-04 15:38 | P.F2F_ITS ---
Service Date Service Date: 11/03/22 Encounter Date of encounter: 11/03/22 Reasons for Services Signs and symptoms assessed: Weakness, dizziness and hypoglycemia Reason for detention: diabetic teaching and medication management Reason for physical therapy: home safety and mobility and gait/transfer training Homebound: Leaving the home is medically contraindicated at this time without the asist of a device and/or another person due th the listed conditions above and below. Reason homebound: unsteady gait / fall risk and fall risk related to blood pressure changes Homebound supporting statement: Homebound due to fall risk, syncope, high risk for hypoglycemia, dizziness eipisodes and therefore needs the assistance of another per Certification: Based on the above findings, I certify that this patient is confined to the home and needs intermittent detention care, physical therapy and/or speech therapy, or continues to need occupational therapy. The patient is under my care, and I have initiated the establishment of the plan of care. The patient will be followed by a physician who will periodically review the plan of care. Time Spent With Patient Time: Total time managing care of this patient today ____ minutes.
== END 2022-11-03 15:13 | disposition home health service (06) ==
LOC: HO.ED 16:28 → HO.EDOVER 21:27 → HO.S3 10-31 16:00
PROVIDERS: Internal Medicine; Physician Assistant; Admitting Provider Internal Medicine; Emergency Provider Student in an Organized Health Care Education/Training Program; PCP Nurse Practitioner Family; Visit Provider Internal Medicine
DX: R55 Syncope and collapse (principal); E11.649 Type 2 diabetes mellitus with hypoglycemia without coma; I10 Essential (primary) hypertension; E78.5 Hyperlipidemia, unspecified; Z79.899 Other long term (current) drug therapy; Z79.02 Long term (current) use of antithrombotics/antiplatelets; Z79.85 Long-term (current) use of injectable non-insulin antidiabetic drugs; Z79.84 Long term (current) use of oral hypoglycemic drugs
CPT/HCPCS: 36415; 70450; 71045; 73560; 74176; 80048; 80076; 81001; 81003; 82947; 83036; 83735; 84484; 85025; 85610; 87086; 93005; 95992; 96361; 96374; 96375; 96376; 97162; 97530; 99221; 99285; J2405; J2765

== ENCOUNTER 2022-12-06 05:31 | Emergency (ER) | payer MEDICARE, SELFPAY ==
--- NOTE | 2022-12-06 | ECG_ITS ---
Test Reason : CHEST PAIN Blood Pressure : / mmHG Vent. Rate : 091 BPM Atrial Rate : 091 BPM P-R Int : 166 ms QRS Dur : 082 ms QT Int : 358 ms P-R-T Axes : 052 -18 045 degrees QTc Int : 440 ms Normal sinus rhythm Normal ECG When compared with ECG of 30-OCT-2022 15:36, No significant change was found Referred By: Generic ED Physician Electronically Signed By:MARIELA DUBON MD
--- NOTE | ~2022-12-06 | XR_ITS ---
EXAMINATION: XR CHEST CLINICAL INFORMATION: Chest pain COMPARISON: 08/30/2022 TECHNIQUE: Frontal view of the chest was obtained. FINDINGS: Normal symmetric lung volumes. No parenchymal consolidation. No pleural effusion. No pneumothorax. Cardiomediastinal silhouette and pulmonary vascularity are within normal limits. Aorta is atherosclerotic. No acute osseous abnormalities. XR/XR chest 1V IMPRESSION: No acute findings.
[2022-12-06 05:35] VITALS: BP 157/74; PULSE 83; PULSE 84; RESP 22; TEMP 36.5; O2SAT 96; O2SAT 98; BMI 45.3
--- NOTE | 2022-12-06 05:55 | ED.CHESTPAIN ---
HPI - Chest Pain General Chief Complaint: Chest Pain Stated Complaint: cp Time Seen by Provider: 12/06/22 05:55 Source: patient Mode of arrival: ambulatory Limitations: no limitations History of Present Illness HPI narrative: Patient with history of pericardial effusion with pericarditis in 05/15 patient woke up from sleep at 02:00 with similar pain which increases on lying down flat and gets better on sitting and leaning forward. Pain is sharp increases on deep inspiration patient feels short winded also. Related Data Home Medications Medication Instructions Recorded Confirmed irbesartan 300 mg tablet 1 tab PO DAILY 05/10/20 10/31/22 metformin 1,000 mg tablet 1 tab PO DAILY@0630 05/10/20 10/31/22 omeprazole 20 mg capsule,delayed 1 cap PO BID@0630,1630 05/10/20 10/31/22 release albuterol sulfate 90 mcg/actuation 2 puff inhalation QID PRN 11/26/21 10/31/22 aerosol inhaler (ProAir HFA) Shortness Of Breath Or Wheezing blood sugar diagnostic (FreeStyle #10 ea 11/26/21 11/26/21 Lite Strips) meclizine 25 mg tablet 25 mg PO DAILY PRN Vertigo 11/26/21 10/31/22 methocarbamol 500 mg tablet 500 mg PO DAILY PRN Muscle Pain 11/26/21 10/31/22 pen needle, diabetic 29 gauge x #100 ea 11/26/21 11/26/2106/27 (BD Ultra-Fine Original Pen Needle) aspirin 81 mg tablet,delayed 81 mg PO DAILY 10/31/22 10/31/22 release cetirizine 10 mg tablet 10 mg PO DAILY PRN allergies 10/31/22 10/31/22 cyclobenzaprine 10 mg tablet 10 mg PO Q8H PRN Muscle Pain 10/31/22 10/31/22 dulaglutide 4.5 mg/0.5 mL 4.5 mg subcut FR 10/31/22 10/31/22 subcutaneous [facility] furosemide 20 mg tablet 20 mg PO DAILY 10/31/22 10/31/22 insulin aspart U-100 100 unit/mL 1 sliding scale dose subcut QIDACHS 10/31/22 10/31/22 (3 mL) subcutaneous pen (Novolog FlexPen U-100 Insulin aspart) Previous Rx's Medication Instructions Recorded amlodipine 10 mg tablet 10 mg PO DAILY #30 tabs 05/12/20 atorvastatin 40 mg tablet (Lipitor) 40 mg PO BEDTIME #30 tabs 05/12/20 oxycodone-acetaminophen 5 mg-325 1 tab PO Q6H PRN pain #20 tabs 10/14/22 mg tablet (Percocet) insulin glargine 100 unit/mL (3 10 unit (0.1 mL) subcut BID #15 mL 11/03/22 mL) subcutaneous pen (Basaglar KwikPen U-100 Insulin) Allergies Allergy/AdvReac Type Severity Reaction Status Date / Time diclofenac AdvReac Headache Verified 12/06/22 06:23 demerol Allergy Unknown Unknown Uncoded 09/16/22 01:15 lisinopril Allergy Unknown Unknown Uncoded 12/06/22 06:23 Review of Systems Review of Systems: Yes all other systems are reviewed and are negative [facility] Past Medical History Medical History (Updated 12/06/22 @ 07:00 by Wilfrido Mcnamara MD) Asthma Diabetes Diverticulitis Dizziness GERD (gastroesophageal reflux disease) High cholesterol HTN (hypertension) Pericardial effusion Pericarditis Small bowel obstruction Surgical History H/O exploratory laparotomy History of bilateral knee replacement History of partial colectomy Status post total abdominal hysterectomy Family History Family History Sister Diabetes ESRD (end stage renal disease) on dialysis Father CAD (coronary artery disease) Social History Social History Alcohol intake: never Patient Tobacco Use Status: Never used Tobacco Cigarettes Per Day: 0 Smoked in Last 30 Days: No Use of substances other than those prescribed or required for medical reasons: No Advance Directives: No Advance Directives Information Provided: Yes service: No Current occupational status: retired Physical Exam Vital Signs: Vital Signs: Last Vital Signs Temp 97.7 F 12/06/22 06:00 Pulse 80 12/06/22 06:00 Resp 14 12/06/22 06:00 BP 150/65 H 12/06/22 06:00 Pulse Ox 96 12/06/22 06:00 O2 Del Method Room Air 12/06/22 06:00 BMI result Body Mass Index 45.3 Appearance: Alert. Oriented X3. In moderate distress Eyes: No pallor or icterus ENT: Pharynx normal. Oral Mucosa moist Neck: Normal inspection. Neck supple. CVS: Normal heart rate and rhythm. Pulses normal. No murmur/rub or gallop normal pulses no pulsus paradoxus Respiratory: No respiratory distress. Equal air entry bilateral, no wheezing/rales/rhonchi Abdomen: Soft and nontender. Bowel sounds are present, no mass palpable, no CVA tenderness Skin: Skin warm and dry. Normal skin color. Normal skin turgor. Extremities: No lower extremity edema. No calf tenderness Neuro: Oriented X 3. No motor deficit. No sensory deficit.No cerebellar signs , cranial nerves II-XII intact Medications Administered Discontinued Medications Generic Name Dose Route Start Last Admin Trade Name Freq PRN Reason Stop Dose Admin Ketorolac Tromethamine 30 mg 12/06/22 06:31 12/06/22 06:41 Ketorolac Tromethamine 30 Mg/Ml Vial IVPUSH 12/06/22 06:32 30 mg ONCE ONE Administration Medical Decision Making Medical Decision Making [facility] Narrative: Patient has a pericarditis/pericardial effusion came with similar pain clinically patient does have pericarditis with increased pain on lying flat and getting better on sitting although no pulsus paradoxus noticed bedside echo was done by myself which did not reveal any pulsus paradoxus or significant pericardial effusion official echo was ordered care discussed with Dr. Aquino environmental property assessor advised colchicine 0.6 mg agreed with Toradol. CRP slightly elevated to 0.67 sed rate is pending high sensitive troponin is negative. Patient signed out Dr. wilson pending echo and cardiac evaluation Lab Data [facility] Lab Attestation statement: I reviewed the patient's lab results. 12/06/22 06:15 12/06/22 06:15 Labs: Lab Results 12/06/22 12/06/22 12/06/22 Range/Units 06:15 06:15 06:15 WBC (4.8-10.8) X10*3/uL RBC (4.20-5.50) X10*6/uL Hgb (12.0-16.0) g/dl Hct (37.0-47.0) % MCV (80.0-98.0) fL MCH (27.0-33.0) pg MCHC (31.0-35.0) g/dl RDW (11.0-16.0) % Plt Count (160-400) X10*3/uL MPV (9.4-12.3) fL Immature Gran % (Auto) (0.0-0.4) % Neut % (Auto) (45-73) % Lymph % (Auto) (20-40) % [place] % (Auto) (2-11) % Eos % (Auto) (0-4) % Baso % (Auto) (0-2) % Lymph # (Auto) (1.2-4.9) X10*3/uL [place] # (Auto) (0.1-1.2) X10*3/uL Eos # (Auto) (0.0-0.4) X10*3/uL Baso # (Auto) (0.0-0.2) X10*3/uL Abs Immat Gran (auto) (0.00-0.03) X10*3/uL Absolute Neuts (auto) (2.0-8.3) x10*3/uL Absolute Nucleated RBC (0.0-0.012) X10*3/uL Nucleated RBC % (auto) (0.0-0.2) /100WBC PT 11.3 (10.0-13.1) SEC INR 1.0 (0.9-1.1) D-Dimer High Sensitivty NG/ML Sodium 141 (135-145) mmol/L Potassium 4.6 (3.3-5.1) mmol/L Chloride 106 (96-108) mmol/L Carbon Dioxide 21 L (22-29) mmol/L Anion Gap 19 (12-20) BUN 18 H (9-16) mg/dL Creatinine 0.79 (0.5-1.4) mg/dL Estim Creat Clear Calc 85.6 Estimated GFR > 60 POC Glucose (60-115) mg/dL Random Glucose 189 H (60-115) mg/dL Calcium 9.4 (8.4-10.2) mg/dL Total Bilirubin 0.4 (0.0-1.0) mg/dL AST 17 (5-31) U/L ALT 20 (0-31) U/L Alkaline Phosphatase 89 (39-117) U/L Troponin I High Sens < 2.7 (<3.5-17.0) ng/L C-Reactive Protein (< or = 0.50) mg/dL Total Protein 6.6 (6.5-8.0) g/dL Albumin 4.0 (3.5-5.0) g/dL 12/06/22 12/06/22 12/06/22 Range/Units 06:15 06:15 06:15 WBC 9.6 (4.8-10.8) X10*3/uL RBC 4.67 (4.20-5.50) X10*6/uL Hgb 13.2 (12.0-16.0) g/dl Hct 40.2 (37.0-47.0) % MCV 86.1 (80.0-98.0) fL MCH 28.3 (27.0-33.0) pg MCHC 32.8 (31.0-35.0) g/dl RDW 14.2 (11.0-16.0) % Plt Count 251 (160-400) X10*3/uL MPV 10.8 (9.4-12.3) fL Immature Gran % (Auto) 0.5 H (0.0-0.4) % Neut % (Auto) 55.6 (45-73) % Lymph % (Auto) 31.0 (20-40) % [place] % (Auto) 8.9 (2-11) % Eos % (Auto) 3.1 (0-4) % Baso % (Auto) 0.9 (0-2) % Lymph # (Auto) 3.0 (1.2-4.9) X10*3/uL [place] # (Auto) 0.9 (0.1-1.2) X10*3/uL Eos # (Auto) 0.3 (0.0-0.4) X10*3/uL Baso # (Auto) 0.1 (0.0-0.2) X10*3/uL Abs Immat Gran (auto) 0.05 H (0.00-0.03) X10*3/uL Absolute Neuts (auto) 5.3 (2.0-8.3) x10*3/uL Absolute Nucleated RBC 0.000 (0.0-0.012) X10*3/uL Nucleated RBC % (auto) 0.0 (0.0-0.2) /100WBC PT (10.0-13.1) SEC INR (0.9-1.1) D-Dimer High Sensitivty < 150 NG/ML Sodium (135-145) mmol/L Potassium (3.3-5.1) mmol/L Chloride (96-108) mmol/L Carbon Dioxide (22-29) mmol/L Anion Gap (12-20) BUN (9-16) mg/dL Creatinine (0.5-1.4) mg/dL Estim Creat Clear Calc Estimated GFR POC Glucose (60-115) mg/dL Random Glucose (60-115) mg/dL Calcium (8.4-10.2) mg/dL Total Bilirubin (0.0-1.0) mg/dL AST (5-31) U/L ALT (0-31) U/L Alkaline Phosphatase (39-117) U/L Troponin I High Sens (<3.5-17.0) ng/L C-Reactive Protein 0.67 H (< or = 0.50) mg/dL Total Protein (6.5-8.0) g/dL Albumin (3.5-5.0) g/dL 12/06/22 Range/Units 06:31 WBC (4.8-10.8) X10*3/uL RBC (4.20-5.50) X10*6/uL Hgb (12.0-16.0) g/dl Hct (37.0-47.0) % MCV (80.0-98.0) fL MCH (27.0-33.0) pg MCHC (31.0-35.0) g/dl RDW (11.0-16.0) % Plt Count (160-400) X10*3/uL MPV (9.4-12.3) fL Immature Gran % (Auto) (0.0-0.4) % Neut % (Auto) (45-73) % Lymph % (Auto) (20-40) % [place] % (Auto) (2-11) % Eos % (Auto) (0-4) % Baso % (Auto) (0-2) % Lymph # (Auto) (1.2-4.9) X10*3/uL [place] # (Auto) (0.1-1.2) X10*3/uL Eos # (Auto) (0.0-0.4) X10*3/uL Baso # (Auto) (0.0-0.2) X10*3/uL Abs Immat Gran (auto) (0.00-0.03) X10*3/uL Absolute Neuts (auto) (2.0-8.3) x10*3/uL Absolute Nucleated RBC (0.0-0.012) X10*3/uL Nucleated RBC % (auto) (0.0-0.2) /100WBC PT (10.0-13.1) SEC INR (0.9-1.1) D-Dimer High Sensitivty NG/ML Sodium (135-145) mmol/L Potassium (3.3-5.1) mmol/L Chloride (96-108) mmol/L Carbon Dioxide (22-29) mmol/L Anion Gap (12-20) BUN (9-16) mg/dL Creatinine (0.5-1.4) mg/dL Estim Creat Clear Calc Estimated GFR POC Glucose 188 H (60-115) mg/dL Random Glucose (60-115) mg/dL Calcium (8.4-10.2) mg/dL Total Bilirubin (0.0-1.0) mg/dL AST (5-31) U/L ALT (0-31) U/L Alkaline Phosphatase (39-117) U/L Troponin I High Sens (<3.5-17.0) ng/L C-Reactive Protein (< or = 0.50) mg/dL Total Protein (6.5-8.0) g/dL Albumin (3.5-5.0) g/dL Independent Interpretation I performed an independent interpretation of an: EKG Interpretation: Low voltage normal sinus rhythm vent rate 91 beats per minute normal intervals normal axis no acute ST-T changes Discharge Plan Discharge Clinical Impression: Chest pain, Acute benign pericarditis Patient Disposition: Still a Patient Prescriptions: No Action metformin 1,000 mg tablet 1 tab PO DAILY@0630 omeprazole 20 mg capsule,delayed release(DR/EC) 1 cap PO BID@0630,1630 irbesartan 300 mg tablet 1 tab PO DAILY amlodipine 10 mg tablet 10 mg PO DAILY Qty: 30 0RF atorvastatin [Lipitor] 40 mg tablet 40 mg PO BEDTIME Qty: 30 0RF oxycodone-acetaminophen [Percocet] 5-325 mg tablet 1 tab PO Q6H PRN (Reason: pain) Qty: 20 0RF cetirizine 10 mg tablet 10 mg PO DAILY PRN (Reason: allergies) furosemide 20 mg tablet 20 mg PO DAILY insulin aspart U-100 [Novolog FlexPen U-100 Insulin] 100 unit/mL (3 mL) insulin pen 1 sliding scale dose SUBCUT QIDACHS aspirin 81 mg Tablet,Delayed Release (Dr/Ec) 81 mg PO DAILY Trulicity 4.5 mg/0.5 mL pen injector 4.5 mg subcut FR cyclobenzaprine 10 mg tablet 10 mg PO Q8H PRN (Reason: Muscle Pain) Rx Instructions: for moderate pain. do not take with methocarbamol insulin glargine [Basaglar KwikPen U-100 Insulin] 100 unit/mL (3 mL) insulin pen 10 unit subcut BID Qty: 15 0RF albuterol sulfate [ProAir HFA] 90 mcg/actuation HFA aerosol inhaler 2 puff inhalation QID PRN (Reason: Shortness Of Breath Or Wheezing) (DME) FreeStyle Lite Strips Strip See Rx Instructions Not Applicable TID Qty: 10 Rx Instructions: As directed (DME) pen needle, diabetic [BD Ultra-Fine Orig Pen Needle] 29 gauge x 1/2 needle See Rx Instructions .ROUTE .MEDSUPPLY Qty: 100 Rx Instructions: As directed meclizine 25 mg tablet 25 mg PO DAILY PRN (Reason: Vertigo) methocarbamol 500 mg tablet 500 mg PO DAILY PRN (Reason: Muscle Pain) Rx Instructions: for severe pain. do not take with cyclobenzaprine
[2022-12-06 06:00] VITALS: BP 150/65; PULSE 80; RESP 14; TEMP 36.5; O2SAT 96
[2022-12-06 06:18] LABS: MANUAL DIFF FLAG NO
[2022-12-06 06:31] LABS: Prothrombin Time 11.3 SEC (10.0-13.1)
--- NOTE | 2022-12-06 06:35 | PC.NURSE ---
aox4 at bedside pt c/o intermittent increases in substernal cp frequently, tearful at times of surges of pain occur no apparent distress at this time
[2022-12-06 06:36] LABS: C Reactive Protein 0.67 mg/dL (< or = 0.50)
[2022-12-06 06:36] LABS: Glucose, Whole Blood 188 mg/dL (60-115)
[2022-12-06 06:39] LABS: Alanine Aminotransferase 20 U/L (0-31); Alkaline Phosphatase 89 U/L (39-117); Anion Gap 19 (12-20); Aspartate Amino Transferase 17 U/L (5-31); Bilirubin Total 0.4 mg/dL (0.0-1.0); Blood Urea Nitrogen 18 mg/dL (9-16); Calcium 9.4 mg/dL (8.4-10.2); Carbon Dioxide 21 mmol/L (22-29); Chloride 106 mmol/L (96-108); Creatinine Clr Calc Pharmacy 85.6; Estimated Glomerular Filt Rate > 60; Glucose Random 189 mg/dL (60-115); Potassium 4.6 mmol/L (3.3-5.1); Sodium 141 mmol/L (135-145); Total Protein 6.6 g/dL (6.5-8.0)
[2022-12-06 06:41] LABS: D Dimer High Sensitivity < 150 NG/ML
[2022-12-06] MEDS: Ketorolac Tromethamine 30 MG/ML VIAL IVPUSH (06:41)
[2022-12-06 06:43] LABS: Basophils Absolute Auto 0.1 X10*3/uL (0.0-0.2); Basophils Percent Auto 0.9 % (0-2); Eosinophils Absolute Auto 0.3 X10*3/uL (0.0-0.4); Eosinophils Percent Auto 3.1 % (0-4); Hematocrit 40.2 % (37.0-47.0); Hemoglobin 13.2 g/dl (12.0-16.0); Imm Gran Abs Auto 0.05 X10*3/uL (0.00-0.03); Imm Gran Pct Auto 0.5 % (0.0-0.4); Mean Corpuscular HGB Conc 32.8 g/dl (31.0-35.0); Mean Corpuscular Hemoglobin 28.3 pg (27.0-33.0); Mean Corpuscular Volume 86.1 fL (80.0-98.0); Mean Platelet Volume 10.8 fL (9.4-12.3); Monocytes Absolute Auto 0.9 X10*3/uL (0.1-1.2); Monocytes Percent Auto 8.9 % (2-11); Neutrophils Absolute Auto 5.3 x10*3/uL (2.0-8.3); Neutrophils Percent Auto 55.6 % (45-73); Platelet Count 251 X10*3/uL (160-400); Red Blood Count 4.67 X10*6/uL (4.20-5.50); Red Cell Distribution Width 14.2 % (11.0-16.0); White Blood Count 9.6 X10*3/uL (4.8-10.8)
[2022-12-06 06:45] LABS: Troponin-I High Sensitivity < 2.7 ng/L (<3.5-17.0)
--- NOTE | 2022-12-06 07:00 | CA_ITS ---
Transthoracic Echocardiogram Patient (Last, First, Middle): Madison Jasso D Gender: Female Date of : 1955 Age: 67 Procedure Date: 12/06/2022 Procedure Type: Transthoracic Echocardiogram Location: ER Height: 162.56 cm Weight: 112.04 kg BSA: 2.14 m2 Heart Rate: bpm BP: 126 / 58 mmHg Functional Director: Referring MD: Wilfrido Mcnamara MD Storage Architect: Marek Aquino MD Symptoms: Pericardial effusion Study Quality: Fair ECG Rhythm: Sinus Conclusions: - 1. Normal LV systolic function with mild LVH with impaired relaxation filling pattern 2. Normal cardiac valvular Dopplers 3. Normal RV systolic pressure 4. Upper limits normal ascending aortic size 5. No gross pericardial effusion Findings Left Ventricle Normal left ventricular size and systolic function. There is mildly increased left ventricular wall thickness. The visually estimated ejection fraction is between 60-65%. Spectral Doppler is indicative of an impaired relaxation filling pattern. E/E prime ratio is between 8 and 15 consistent with indeterminate filling pressures. Right Ventricle Normal right ventricular cavity size and systolic function. Atria The left atrium is likely dilated. There is no evidence of interatrial shunt. The right atrium is normal in size. Aortic Valve The aortic valve structure and function is likely normal. There is no aortic valve stenosis. There is no aortic valve regurgitation. Mitral Valve Normal mitral valve structure and function. There is trace mitral valve regurgitation. There is no mitral valve stenosis. Pulmonic Valve The pulmonic valve was not well visualized. Tricuspid Valve Likely normal tricuspid valve structure and function. There is trace tricuspid valve regurgitation. The right ventricular systolic pressure is normal. The right ventricular systolic pressure is 19 mmHg. Normal right atrial pressure. There is no evidence of pulmonary hypertension. Great Vessels The pulmonary artery was not well visualized. Venous The inferior vena cava is normal in size and collapses greater than 50% with inspiration. Pericardium/Pleural There is no evidence of pericardial effusion. Prior Study Comparison Changes noted compared to prior study dated: 05/22/2020. No significant pericardial effusion noted Measurements 2D Linear Measurements IVSd: 1.26 0.6-0.9/0.6-1.0 cm LVIDd: 4.57 3.9-5.3/4.2-5.9 cm LVIDd Index: 2.14 2.4-3.2/2.2-3.1 cm/m2 LVIDs: 2.93 2.0-3.6 cm LVPWd: 1.25 0.7-1.1 cm Ao Root: 3.10 2.1-3.5 cm LA Diam: 4.00 2.7-3.8/3.0-4.0 cm LAIDs Index: 1.87 1.5-2.3 cm/m2 LV Mass: 269.83 67-162/88-224 g LV Mass Index: 126.09 43-95/49-115 g/m2 LVOT Diam: 2.10 3.0+(-)1.3 cm Mitral Valve MV Pk E: 0.73 MV PK A: 1.08 MV Decel Time: 137.00 E/A: 0.70 E'Lateral: 8.16 E'Medial: 5.55 E/E' Med: 13.10 E/E' Lat: 8.90 PHT: 40.00 MVA PHT: 5.50 Decel Yell: 5.30 Aortic Valve AoV Pk Radu: 1.43 AoV Mn Radu: 0.89 AoV VTI: 0.31 AoV Pk Grad: 8.00 Aov Mn Grad: 4.00 CATHERINE Cont.VTI: 2.66 LVOT LVOT Pk Radu: 0.93 LVOT Mn Radu: 0.66 LVOT VTI: 0.24 LVOT Pk Grad: 3.00 LVOT Mn Grad: 2.00 LVOT Diam: 2.10 LVOT Area: 3.46 Diastolic Function MV Pk E: 0.73 MV Pk A: 1.08 E/A: 0.70 E'Medial: 5.55 E/E' Med: 13.10 E' Laterial: 8.16 E/E' Lat: 8.90 Right Ventricle TAPSE (mm): 28.00 TVS' Radu: 13.00 Tricuspid Valve TR Pk Radu: 2.00 TR Pk Grad: 16.00 RA Press: 3.00 RVSP: 19.00 Great Vessels Aorta Ao Root-2D: 3.10 2.0-3.7 cm Ao Asc: 3.50 2.1-3.4 cm Pulmonary Valve PV Pk Radu: 0.96 Peak PV Grad: 4.00 Updated in Other Vendor System with Status of Final Marek Aquino MD electronically signed on 12/06/2022 10:48:35 AM with status of Final
--- NOTE | 2022-12-06 07:11 | PC.NURSE ---
Assumed care of this pt at 0700. Pt sitting up in bed, at bedside. Medication not available, pharmacy aware, will bring to unit.
[2022-12-06 07:22] LABS: Erythrocyte Sedimentation Rate 23 MM/HR (0-20)
[2022-12-06] MEDS: Colchicine 0.6 MG TABLET PO (07:26)
[2022-12-06 08:00] VITALS: BP 126/58; PULSE 78; RESP 13; TEMP 36.6; O2SAT 97
[2022-12-06 08:06] VITALS: PULSE 80
--- NOTE | 2022-12-06 09:35 | PC.NURSE ---
Bedside Echo complete. pending results.
[2022-12-06 10:35] VITALS: BP 146/56; PULSE 78; RESP 12; TEMP 36.7; O2SAT 97
[2022-12-06] MEDS: Morphine Sulfate 4 MG/ML CARTRIDGE IVPUSH (10:42)
[2022-12-06 13:12] VITALS: BP 153/55; PULSE 77; RESP 18; O2SAT 98
== END 2022-12-06 13:14 | disposition home or self-care (01) ==
PROVIDERS: Internal Medicine; Emergency Provider Emergency Medicine
DX: R07.89 Other chest pain (principal); I30.8 Other forms of acute pericarditis; Z79.899 Other long term (current) drug therapy
CPT/HCPCS: 36415; 71045; 80053; 82947; 84484; 85025; 85379; 85610; 85652; 86140; 93005; 93306; 96374; 96375; 99284; 99285; J1885; J2270

== ENCOUNTER 2023-06-15 09:15 | Emergency (ER) | payer MEDICARE, SELFPAY ==
--- NOTE | ~2023-06-15 | CT_ITS ---
EXAMINATION: CT ABDOMEN AND PELVIS WITHOUT CONTRAST CLINICAL INFORMATION: Right flank pain kidney stone COMPARISON: CT abdomen from 10/30/2022 TECHNIQUE: Multidetector volumetric imaging was performed from the superior aspect of the liver through the pubic symphysis. Sagittal and coronal reformatted images were obtained on the technologist's workstation. This CT examination was performed using dose optimization techniques as appropriate, variously including the following: *Automated exposure control *Adjustment of mA and/or kV according to patient size (this includes techniques or standardized protocols for targeted exams where dose is matched to indication/reason for exam; i.e. extremities or head) *Use of iterative reconstruction technique DLP: 723 mGy-cm FINDINGS: LUNG BASES: Bibasilar atelectasis. No pneumothorax. No large pleural effusion. Elevation of the right hemidiaphragm LIVER, GALLBLADDER, AND BILIARY TREE: Liver is enlarged.. No focal hepatic lesion or biliary ductal dilatation is present. The gallbladder is unremarkable with no evidence of radiopaque gallstones, gallbladder wall thickening, or obvious pericholecystic inflammatory changes. PANCREAS: Unremarkable. SPLEEN: Unremarkable. ADRENAL GLANDS: Unremarkable. KIDNEYS AND URETERS: Hypodense focus left renal upper pole demonstrating fluid attenuation statistically representing cyst not requiring follow-up measuring 1.5 cm. The kidneys are normal in size, shape, and attenuation. No hydronephrosis, hydroureter, or calculi seen. No perinephric stranding. BLADDER: Unremarkable. GASTROINTESTINAL TRACT: Colonic diverticulosis without acute diverticulitis. The small and large bowel are unremarkable. The appendix is not definitively visualized. No secondary signs of appendicitis. ABDOMINAL WALL: No significant hernia is appreciated. LYMPH NODES: A few subcentimeter nonenlarged lymph nodes are noted in the right lower abdomen nonspecific though may reflect an element of mesenteric adenitis in the appropriate clinical setting VASCULAR: Abdominal aorta is nonaneurysmal. Atherosclerotic calcifications of the abdominal aorta and its branches. PELVIC VISCERA: Uterus appears surgically absent. OSSEOUS STRUCTURES: Multilevel degenerative changes of the thoracolumbar lumbosacral spine. CT/CT abdomen pelvis wo IV con IMPRESSION: 1. No nephrolithiasis or hydronephrosis. 2. A few subcentimeter nonenlarged lymph nodes are noted in the right lower abdomen nonspecific though may reflect an element of mesenteric adenitis in the appropriate clinical setting. Correlation with symptomatology. 3. Colonic diverticulosis without acute diverticulitis. 4. Liver is enlarged.
[2023-06-15 09:22] VITALS: BP 156/57; BP 160/68; PULSE 81; PULSE 86; RESP 20; TEMP 36.6; O2SAT 97; O2SAT 99; BMI 43.6
--- NOTE | 2023-06-15 09:25 | ED.BACK ---
HPI - Back Pain/Injury General Chief Complaint: Back Pain/Injury Stated Complaint: SEVERE BACK PAIN Time Seen by Provider: 06/15/23 09:18 Source: patient Mode of arrival: EMS Limitations: no limitations History of Present Illness HPI Narrative: 67-year-old female with history of pericarditis, pericardial effusion, diverticulitis, SBO, high cholesterol, GERD, asthma, hypertension, diabetes who presents emergency department for evaluation of right-sided flank/back pain. Patient states she woke up this morning with a dull ache in her right lower flank. She denied any injury to her back. She states the pain then became progressively worse and is not greater than 10/10. The pain is a constant, sharp pain located in her right lower back and flank area and does radiate to her pelvic area. She states that yesterday she did notice a dark color to her urine. She denied frequency, urgency or dysuria. She had associated nausea but no vomiting. This is a 1st episode of this type of pain. She states the pain was severe and she had a call an ambulance to come to the emergency department. Related Data Home Medications Medication Instructions Recorded Confirmed irbesartan 300 mg tablet 1 tab PO DAILY 05/10/20 10/31/22 metformin 1,000 mg tablet 1 tab PO DAILY@0630 05/10/20 10/31/22 omeprazole 20 mg capsule,delayed 1 cap PO BID@0630,1630 05/10/20 10/31/22 release albuterol sulfate 90 mcg/actuation 2 puff inhalation QID PRN 11/26/21 10/31/22 aerosol inhaler (ProAir HFA) Shortness Of Breath Or Wheezing blood sugar diagnostic (FreeStyle #10 ea 11/26/21 11/26/21 Lite Strips) meclizine 25 mg tablet 25 mg PO DAILY PRN Vertigo 11/26/21 10/31/22 methocarbamol 500 mg tablet 500 mg PO DAILY PRN Muscle Pain 11/26/21 10/31/22 pen needle, diabetic 29 gauge x #100 ea 11/26/21 11/26/2106/27 (BD Ultra-Fine Original Pen Needle) aspirin 81 mg tablet,delayed 81 mg PO DAILY 10/31/22 10/31/22 release cetirizine 10 mg tablet 10 mg PO DAILY PRN allergies 10/31/22 10/31/22 cyclobenzaprine 10 mg tablet 10 mg PO Q8H PRN Muscle Pain 10/31/22 10/31/22 dulaglutide 4.5 mg/0.5 mL 4.5 mg subcut FR 10/31/22 10/31/22 subcutaneous pen injector (Trulicity) furosemide 20 mg tablet 20 mg PO DAILY 10/31/22 10/31/22 insulin aspart U-100 100 unit/mL 1 sliding scale dose subcut QIDACHS 10/31/22 10/31/22 (3 mL) subcutaneous pen (Novolog FlexPen U-100 Insulin aspart) Previous Rx's Medication Instructions Recorded amlodipine 10 mg tablet 10 mg PO DAILY #30 tabs 05/12/20 atorvastatin 40 mg tablet (Lipitor) 40 mg PO BEDTIME #30 tabs 05/12/20 oxycodone-acetaminophen 5 mg-325 1 tab PO Q6H PRN pain #20 tabs 10/14/22 mg tablet (Percocet) insulin glargine 100 unit/mL (3 10 unit (0.1 mL) subcut BID #15 mL 11/03/22 mL) subcutaneous pen (Basaglar KwikPen U-100 Insulin) cyclobenzaprine 10 mg tablet 10 mg PO TID #10 tabs 12/06/22 naproxen 500 mg tablet (Naprosyn) 500 mg PO BID #20 tabs 12/06/22 morphine 15 mg immediate release 15 mg PO Q6H PRN pain #10 tabs 06/15/23 tablet Allergies Allergy/AdvReac Type Severity Reaction Status Date / Time diclofenac AdvReac Headache Verified 12/06/22 06:23 demerol Allergy Unknown Unknown Uncoded 09/16/22 01:15 lisinopril Allergy Unknown Unknown Uncoded 12/06/22 06:23 Review of Systems Review of Systems: Yes all other systems are reviewed and are negative [facility] Past Medical History [facility] Narrative: Social history: Patient denies tobacco, alcohol and drug use. She is her is here in the emergency department with her. Medical History (Updated 06/15/23 @ 12:44 by Donald Albrecht MD) Pericarditis Pericardial effusion Diverticulitis Small bowel obstruction High cholesterol GERD (gastroesophageal reflux disease) Asthma Dizziness HTN (hypertension) Diabetes Surgical History History of partial colectomy History of bilateral knee replacement Status post total abdominal hysterectomy H/O exploratory laparotomy Family History Family History Sister Diabetes ESRD (end stage renal disease) on dialysis Father CAD (coronary artery disease) Social History Social History Alcohol intake: never Comment: pt sleeping Patient Tobacco Use Status: Never used Tobacco Cigarettes Per Day: 0 Smoked in Last 30 Days: No Use of substances other than those prescribed or required for medical reasons: No Advance Directives: Yes Advance Directives Information Provided: No Advance Directives on File: No service: No Current occupational status: retired Physical Exam Vital Signs: Vital Signs: Last Vital Signs Temp 97.8 F 06/15/23 09:22 Pulse 81 06/15/23 09:22 Resp 20 06/15/23 09:22 BP 156/57 H 06/15/23 09:22 Pulse Ox 97 06/15/23 09:22 O2 Del Method Room Air 06/15/23 09:22 BMI result Body Mass Index 43.6 Exam General: Awake, in moderate distress secondary to her back pain, elevated BMI of 43.6 Head: Normocephalic, atraumatic EENT: PERRL, Lids normal, sclera normal, conjunctiva normal, nose normal , ears normal, throat without erythema or exudates Neck: Supple, no adenopathy, no trachea midline or C-spine tenderness Lung: breath sounds symmetric, no wheezing, rales or rhonchi Chest: symmetric movement, nontender Heart: regular rate and rhythm, normal S1, S2 no murmurs or rubs Abdomen: soft, non-tender, nondistended, normal bowel sounds Back: The patient has moderate right CVA tenderness, she also has tenderness palpation of her right lumbar sacral paraspinal muscles with no spasm of these muscles, no point tenderness palpation over vertebra Extremities: no deformities, moves all extremities symmetrically Neuro: Awake, alert, oriented, normal speech, cranial nerves intact, moves all extremities symmetrically Psych: Pleasant, cooperative Medications Administered Discontinued Medications Generic Name Dose Route Start Last Admin Trade Name Freq PRN Reason Stop Dose Admin Sodium Chloride 1,000 mls @ 999 mls/hr 06/15/23 09:25 06/15/23 11:56 Ns IV 06/15/23 10:25 Infused .Q1H1M STA Infusion Ketorolac Tromethamine 15 mg 06/15/23 09:25 06/15/23 10:02 Ketorolac Tromethamine 15 Mg/Ml Vial IVPUSH 06/15/23 09:26 15 mg ONCE STA Administration Morphine Sulfate 4 mg 06/15/23 10:52 06/15/23 11:01 Morphine Sulfate 4 Mg/Ml Cartridge IVPUSH 06/15/23 10:53 4 mg ONCE STA Administration Protocol Ondansetron HCl 4 mg 06/15/23 09:25 06/15/23 10:02 Ondansetron Hcl 4 Mg/2 Ml Vial IVPUSH 06/15/23 09:26 4 mg ONCE ONE Administration Medical Decision Making Medical Decision Making [facility] [place] Narrative: 67-year-old female with history of pericarditis, pericardial effusion, diverticulitis, SBO, high cholesterol, GERD, asthma, hypertension, diabetes who presents emergency department for evaluation of right-sided flank/back pain which started as a dull pain in the became is severe sharp pain greater than 10/10 located in her right flank area and radiating to her pelvic area. She noted dark urine yesterday but had no frequency, urgency or dysuria. This is a 1st episode of this type of pain. Examination did reveal right-sided CVA tenderness and tenderness palpation of the paraspinal muscles in the right lumbar sacral area Following evaluation was ordered: CBC, CMP, lipase, urinalysis, CT scan of the abdomen pelvis without IV contrast Patient was treated with Toradol 15 mg IV, Zofran 4 mg IV and normal saline x1 L. 12:12 Patient got no relief with the above medication and required morphine 4 mg IV x2 doses with improvement of her pain. Patient's laboratory evaluation was unremarkable. CT scan of the abdomen pelvis IV contrast did not reveal any kidney stone or other acute cause for the patient's pain. Patient's pain is most likely musculoskeletal pain. Patient was advised to take Tylenol and ibuprofen for pain and for pain not relieved by these medications she was prescribed morphine. Patient does take tizanidine I told her to continue to take this medication as prescribed. Differential Diagnosis Differential Diagnoses: The differential diagnosis associated with the presentation includes Differential diagnosis includes was not limited to musculoskeletal pain, disc disease, joint disease, renal colic, ureteral colic, ureteral stone Admission/Observation Consideration of admission/observation: Escalation of care including admission/observation considered Lab Data My interpretation patient's laboratory evaluation is as follows: CBC and CMP were normal except for an elevated glucose of 212. Lipase was normal. Urinalysis was negative. 06/15/23 09:59 06/15/23 10:35 Labs: Lab Results 06/15/23 06/15/23 06/15/23 Range/Units 09:59 10:35 10:57 WBC 10.5 (4.8-10.8) X10*3/uL RBC 4.58 (4.20-5.50) X10*6/uL Hgb 13.2 (12.0-16.0) g/dl Hct 40.1 (37.0-47.0) % MCV 87.6 (80.0-98.0) fL MCH 28.8 (27.0-33.0) pg MCHC 32.9 (31.0-35.0) g/dl RDW 14.0 (11.0-16.0) % Plt Count 244 (160-400) X10*3/uL MPV 10.8 (9.4-12.3) fL Immature Gran % (Auto) 0.4 (0.0-0.4) % Neut % (Auto) 71.3 (45-73) % Lymph % (Auto) 17.0 L (20-40) % [place] % (Auto) 8.1 (2-11) % Eos % (Auto) 2.4 (0-4) % Baso % (Auto) 0.8 (0-2) % Lymph # (Auto) 1.8 (1.2-4.9) X10*3/uL [place] # (Auto) 0.9 (0.1-1.2) X10*3/uL Eos # (Auto) 0.3 (0.0-0.4) X10*3/uL Baso # (Auto) 0.1 (0.0-0.2) X10*3/uL Abs Immat Gran (auto) 0.04 H (0.00-0.03) X10*3/uL Absolute Neuts (auto) 7.5 (2.0-8.3) x10*3/uL Absolute Nucleated RBC 0.000 (0.0-0.012) X10*3/uL Nucleated RBC % (auto) 0.0 (0.0-0.2) /100WBC Sodium 136 (135-145) mmol/L Potassium 4.9 (3.3-5.1) mmol/L Chloride 107 (96-108) mmol/L Carbon Dioxide 20 L (22-29) mmol/L Anion Gap 14 (12-20) BUN 14 (9-16) mg/dL Creatinine 0.81 (0.5-1.4) mg/dL Estim Creat Clear Calc 84.5 Estimated GFR > 60 Random Glucose 212 H (60-115) mg/dL Calcium 9.3 (8.4-10.2) mg/dL Total Bilirubin 0.3 (0.0-1.0) mg/dL AST 15 (5-31) U/L ALT 16 (0-31) U/L Alkaline Phosphatase 90 (39-117) U/L Total Protein 6.8 (6.5-8.0) g/dL Albumin 3.8 (3.5-5.0) g/dL Lipase 40 (8-78) U/L Urine Color Yellow Urine Appearance Clear Urine pH 5.5 (5.0-9.0) Ur Specific [place] 1.010 (1.005-1.025) Urine Protein Negative (Neg-Trace) mg/dL Urine Glucose (UA) Negative (Negative) mg/dL Urine Ketones Negative (Negative) mg/dL Urine Blood Negative (Negative) Urine Nitrite Negative (Negative) Ur Leukocyte Esterase Negative (Negative) Radiology Impression Discussion of test interpretation with radiology: I have reviewed the radiologist's reading. Radiologist Impression: CT abdomen pelvis wo IV con IMPRESSION: 1. No nephrolithiasis or hydronephrosis. 2. A few subcentimeter nonenlarged lymph nodes are noted in the right lower abdomen nonspecific though may reflect an element of mesenteric adenitis in the appropriate clinical setting. Correlation with symptomatology. 3. Colonic diverticulosis without acute diverticulitis. 4. Liver is enlarged. Dictated By: Fabiola Cottrell MD Discharge Plan Discharge Clinical Impression: Lower back pain Qualifiers: Chronicity: acute Back pain laterality: right Sciatica presence: without sciatica Qualified Code(s): M54.50 - Low back pain, unspecified Patient Disposition: Home, Self-Care Instructions: Back Pain (ED) Additional Instructions: Your blood work was unremarkable. Your urinalysis was normal as well. Your CT scan did not reveal any findings to explain your pain which is reassuring. Your pain is most likely caused by pain and spasm of the muscles of your lower back. Take ibuprofen 200 mg pills, 3 pills every 6 hours as needed for pain. Take Tylenol (acetaminophen) 2 pills every 6 hours as needed for pain. For pain not relieved by ibuprofen or Tylenol take morphine 15 mg pills, 1 pill every 4-6 hours as needed for pain. This medication will make you sleepy, do not drive or work while taking this medication. Morphine is a narcotic medication and can be addicting. If you are concerned about addiction you can ask the pharmacist for less pills or do not get this prescription filled. Continue to take tizanidine as prescribed by your provider. Follow-up with your doctor in 2 days. Please return to the emergency department if your symptoms get worse or if you develop any symptoms that are concerning to you. Prescriptions: New morphine 15 mg tablet 15 mg PO Q6H PRN (Reason: pain) Qty: 10 0RF Rx Instructions: The patient may ask for partial fill; Partial Fill upon patient request. No Action metformin 1,000 mg tablet 1 tab PO DAILY@0630 omeprazole 20 mg capsule,delayed release(DR/EC) 1 cap PO BID@0630,1630 irbesartan 300 mg tablet 1 tab PO DAILY amlodipine 10 mg tablet 10 mg PO DAILY Qty: 30 0RF atorvastatin [Lipitor] 40 mg tablet 40 mg PO BEDTIME Qty: 30 0RF oxycodone-acetaminophen [Percocet] 5-325 mg tablet 1 tab PO Q6H PRN (Reason: pain) Qty: 20 0RF cetirizine 10 mg tablet 10 mg PO DAILY PRN (Reason: allergies) furosemide 20 mg tablet 20 mg PO DAILY insulin aspart U-100 [Novolog FlexPen U-100 Insulin] 100 unit/mL (3 mL) insulin pen 1 sliding scale dose SUBCUT QIDACHS aspirin 81 mg Tablet,Delayed Release (Dr/Ec) 81 mg PO DAILY Trulicity 4.5 mg/0.5 mL pen injector 4.5 mg subcut FR cyclobenzaprine 10 mg tablet 10 mg PO Q8H PRN (Reason: Muscle Pain) Rx Instructions: for moderate pain. do not take with methocarbamol insulin glargine [Basaglar KwikPen U-100 Insulin] 100 unit/mL (3 mL) insulin pen 10 unit subcut BID Qty: 15 0RF cyclobenzaprine 10 mg tablet 10 mg PO TID Qty: 10 0RF naproxen [Naprosyn] 500 mg tablet 500 mg PO BID Qty: 20 0RF albuterol sulfate [ProAir HFA] 90 mcg/actuation HFA aerosol inhaler 2 puff inhalation QID PRN (Reason: Shortness Of Breath Or Wheezing) (DME) FreeStyle Lite Strips Strip See Rx Instructions Not Applicable TID Qty: 10 Rx Instructions: As directed (DME) pen needle, diabetic [BD Ultra-Fine Orig Pen Needle] 29 gauge x 1/2 needle See Rx Instructions .ROUTE .MEDSUPPLY Qty: 100 Rx Instructions: As directed meclizine 25 mg tablet 25 mg PO DAILY PRN (Reason: Vertigo) methocarbamol 500 mg tablet 500 mg PO DAILY PRN (Reason: Muscle Pain) Rx Instructions: for severe pain. do not take with cyclobenzaprine
[2023-06-15] MEDS: Ketorolac Tromethamine 15 MG/ML VIAL IVPUSH (10:02)
[2023-06-15] MEDS: 0.9 % Sodium Chloride 1,000 ML 999 ML IV (10:02)
[2023-06-15] MEDS: ondansetron HCL 4 MG/2 ML VIAL IVPUSH (10:02)
[2023-06-15 10:03] LABS: MANUAL DIFF FLAG NO
[2023-06-15 10:04] LABS: Basophils Absolute Auto 0.1 X10*3/uL (0.0-0.2); Basophils Percent Auto 0.8 % (0-2); Eosinophils Absolute Auto 0.3 X10*3/uL (0.0-0.4); Eosinophils Percent Auto 2.4 % (0-4); Hematocrit 40.1 % (37.0-47.0); Hemoglobin 13.2 g/dl (12.0-16.0); Imm Gran Abs Auto 0.04 X10*3/uL (0.00-0.03); Imm Gran Pct Auto 0.4 % (0.0-0.4); Lymphocytes Absolute Auto 1.8 X10*3/uL (1.2-4.9); Mean Corpuscular HGB Conc 32.9 g/dl (31.0-35.0); Mean Corpuscular Hemoglobin 28.8 pg (27.0-33.0); Mean Corpuscular Volume 87.6 fL (80.0-98.0); Mean Platelet Volume 10.8 fL (9.4-12.3); Monocytes Absolute Auto 0.9 X10*3/uL (0.1-1.2); Monocytes Percent Auto 8.1 % (2-11); Neutrophils Absolute Auto 7.5 x10*3/uL (2.0-8.3); Neutrophils Percent Auto 71.3 % (45-73); Platelet Count 244 X10*3/uL (160-400); Red Blood Count 4.58 X10*6/uL (4.20-5.50); White Blood Count 10.5 X10*3/uL (4.8-10.8)
[2023-06-15] MEDS: Morphine Sulfate 4 MG/ML CARTRIDGE IVPUSH ×2 (11:01→12:51)
[2023-06-15 11:05] LABS: Alanine Aminotransferase 16 U/L (0-31); Albumin Level 3.8 g/dL (3.5-5.0); Alkaline Phosphatase 90 U/L (39-117); Anion Gap 14 (12-20); Aspartate Amino Transferase 15 U/L (5-31); Blood Urea Nitrogen 14 mg/dL (9-16); Calcium 9.3 mg/dL (8.4-10.2); Carbon Dioxide 20 mmol/L (22-29); Chloride 107 mmol/L (96-108); Creatinine Clr Calc Pharmacy 84.5; Estimated Glomerular Filt Rate > 60; Glucose Random 212 mg/dL (60-115); Lipase 40 U/L (8-78); Potassium 4.9 mmol/L (3.3-5.1); Sodium 136 mmol/L (135-145); Total Protein 6.8 g/dL (6.5-8.0)
[2023-06-15 11:07] LABS: Bilirubin Total 0.3 mg/dL (0.0-1.0)
[2023-06-15 11:08] LABS: Appearance Urine Clear; Color Urine Yellow; Glucose Urine UA Negative (Negative); Leukocyte Esterase Urine Negative (Negative); Nitrite Urine Negative (Negative); PH 5.5 (5.0-9.0); Urine Blood Negative (Negative); Urine Ketones Negative (Negative); Urine Protein Negative (Neg-Trace)
[2023-06-15 12:50] VITALS: BP 139/61; PULSE 70; RESP 18
== END 2023-06-15 13:46 | disposition home or self-care (01) ==
PROVIDERS: Emergency Provider Emergency Medicine Emergency Medical Services; PCP Internal Medicine
DX: M54.41 Lumbago with sciatica, right side (principal); R11.2 Nausea with vomiting, unspecified; Z79.899 Other long term (current) drug therapy
CPT/HCPCS: 36415; 74176; 80053; 81003; 83690; 85025; 96361; 96374; 96375; 96376; 99284; 99285; J1885; J2270; J2405